=== PATIENT | female | born 1930 | race Caucasian/White ===

== ENCOUNTER 2016-02-07 06:56 | Inpatient (IN) | payer MEDICARE, MEDICAID ==
[~2016-02-07] VITALS: Ht 152.4 cm; Wt 79.5 kg
[2016-02-07] VITALS (8 sets, daily range): BP systolic 123–154; BP diastolic 55–82; PULSE 64–75; RESP 16–22; TEMP 97–97.8; O2SAT 95–100
[~2016-02-07 06:56] MED LIST: ALPR0.25 PO; ASPI81TA11 PO; ATOR20TA15 PO; CHOL1TAB16 PO; DULO1CAP3 PO; FLUT1INH INH; FURO1TAB62 PO; GABA400C5 PO; IPRASOL INH; K-TA10TA PO; LACTG PO; LISI-519 PO; MACR100C2 PO; METO25TA3 PO; OXYGEN NAS.CANULA; RISP0.252 PO
--- NOTE | 2016-02-07 07:29 | PD ---
HPI . Left ankle pain Chief Complaint: Injury Time Seen by Provider: 07:13 Travel History International Travel<30 days: No Contact w/Intl Traveler<30days: No Traveled to known affect area: No History of Present Illness HPI Patient presents by EVAC with a left ankle injury. The patient reports she got up to go to the bathroom at 10:00 last night and inadvertently tripped over her oxygen tubing. She injured her ankle and was unable to get up. She lives in an assisted living community but was unable to summons any help until this morning. She reports that she sat upright on the floor all night with her legs extended and her body supported with her arms. She denies any other injury. She states that she is not currently having any difficulty breathing. PFSH Past Medical History Hx Anticoagulant Therapy: Yes (asa 81mg) Arthritis: Yes Asthma: No Autoimmune Disease: No Anxiety: Yes Depression: Yes Heart Rhythm Problems: No Cancer: No Cardiovascular Problems: Yes (htn, NV x 3?) High Cholesterol: Yes Chemotherapy: No Chest Pain: Yes Congestive Heart Failure: No COPD: Yes Cerebrovascular Accident: No Coronary Artery Disease: Yes Diabetes: No Diminished Hearing: Yes (no hearing aids) Endocrine: No Gastrointestinal Disorders: No GERD: No Genitourinary: No Headaches: No Hiatal Hernia: No Heparin Induced Thrombocytopen: No Hypertension: Yes Immune Disorder: No Implanted Vascular Access Dvce: No Kidney Stones: No Musculoskeletal: Yes Neurologic: No Psychiatric: No Reproductive: No Respiratory: Yes (copd) Integumentary: Yes (left flank and under left breast hx of shingles) Migraines: No Myocardial Infarction: Yes (NV's) Pneumonia: Yes Radiation Therapy: No Renal Failure: No Seizures: No Shingles: Yes Sickle Cell Disease: No Sleep Apnea: No Thyroid Disease: No Ulcer: No Menopausal: Yes Past Surgical History Abdominal Surgery: No AICD: No Arteriovenous Shunt: No Cardiac Surgery: No Ear Surgery: No Endocrine Surgery: No Eye Surgery: Yes (CATARACT both eyes) Genitourinary Surgery: No Gynecologic Surgery: No Insulin Pump: No Joint Replacement: No Neurologic Surgery: No Oral Surgery: No Pacemaker: No Thoracic Surgery: No Tonsillectomy: Yes Other Surgery: No Social History Alcohol Use: No Tobacco Use: No (QUIT 2 yrs ago smoked 1 ppd for approx 65 yrs) Substance Use: No Allergies-Medications (Allergen,Severity, Reaction): Coded Allergies: No Known Allergies (Unverified , 02/07/16) Reported Meds & Prescriptions Reported Meds & Active Scripts Active Macrobid (Nitrofurantoin Monoh/Nitrofur Macro) 100 Mg Cap 100 Mg PO BIDPC 6 Days Reported Symbicort Inh (Budesonide/Formoterol Fumarate) 160-4.5 Mcg/Act Aero 2 Puff INH Q12HR Potassium Chloride Liq (Potassium Chloride) 20 Meq/15 Ml Soln 20 Meq PO DAILY Lactulose Liq (Lactulose) 10 Gm/15 Ml Soln 30 Ml PO Q6H PRN Duoneb (Ipratropium-Albuterol Neb) 0.5-2.5 Mg/3 Ml Neb 1 Nebule INH QID NEB Vitamin D3 (Cholecalciferol) 50,000 Unit Tab 50,000 Units PO Q7D Atorvastatin (Atorvastatin Calcium) 20 Mg Tab 20 Mg PO HS Risperidone 0.25 Mg Tab 0.25 Mg PO HS [oxygen @ 2 LPM by nc] 2 Liter GANESH.CANULA DAILY Gabapentin 400 Mg Cap 400 Cap PO TID Metoprolol Tartrate 25 Mg Tab 12.5 Mg PO BID Lasix (Furosemide) 20 Mg Tab 20 Mg PO DAILY Duloxetine DR (Duloxetine HCl) 60 Mg Capdr 60 Mg PO DAILY Aspirin EC (Aspirin) 81 Mg Tabdr 81 Mg PO DAILY Alprazolam 0.25 Mg Tab 0.25 Mg PO Q6H PRN Review of Systems Except as stated in HPI: all other systems reviewed are Neg General / Constitutional: No: Fever, Chills Cardiovascular: No: Chest Pain or Discomfort Respiratory: No: Shortness of Breath Musculoskeletal: Positive: Arthralgias (left ankle) Skin: Positive Change in Pigmentation (bruising of the left ankle associated with the injury), Positive Other (no associated break in the skin) Physical Exam Narrative GENERAL: She dry elderly woman who is able to give her own history and he does not appear to be in any acute distress. SKIN: Warm and dry. Bruising and swelling of left ankle HEAD: Atraumatic. Normocephalic. EYES: Pupils equal and round. ENT: No nasal bleeding or discharge. Mucous membranes pink and moist. NECK: Trachea midline. Neck supple with full range of motion. CARDIOVASCULAR: Regular rate and rhythm. Heart sounds normal. RESPIRATORY: No accessory muscle use. Breath sounds are nonlabored. I did not make her sit up to listen to her posterior lung zavala. GASTROINTESTINAL: Abdomen soft, non-tender, nondistended. MUSCULOSKELETAL: Bruising and swelling of the left distal tib-fib/ankle area. It is not deformed but has significant bruising and swelling. She is distally neurovascularly intact. NEUROLOGICAL: Awake and alert. No obvious cranial nerve deficits. Motor grossly within normal limits. Normal speech. PSYCHIATRIC: Appropriate mood and affect; insight and judgment normal. Data Data Last Documented VS Vital Signs Date Time Temp Pulse Resp B/P Pulse Ox O2 Delivery O2 Flow Rate FiO2 02/07/16 07:27 99 Nasal Cannula 2 02/07/16 07:09 19 02/07/16 07:02 97.4 64 154/64 Orders Ankle, Complete ([id number]) (02/07/16 07:18) Basic Metabolic Panel (Bmp) (02/07/16 07:23) Ckmb (Isoenzyme) Profile (02/07/16 07:23) Complete Blood Count With Diff (02/07/16 07:23) Oximetry (02/07/16 07:23) Oxygen Administration (02/07/16 07:23) Sodium Chloride 0.9% Flush (Ns Flush) (02/07/16 07:30) Urinalysis - C+S If Indicated (02/07/16 07:23) Splint Or Brace Apply/Monitor (02/07/16 07:57) Acetamin-Hydrocod 325-5 Mg ([place] 5-325 (02/07/16 08:15) Diazepam (Valium) (02/07/16 08:15) Protein Corrected Calcium(Pcc) (02/07/16 07:41) Potassium Chloride (Kcl) (02/07/16 09:30) Sodium Chlor 0.9% 1000 Ml Inj (Ns 1000 M (02/07/16 09:30) Potassium Chloride (Kcl) (02/07/16 10:30) Cath For Specimen (02/07/16 09:32) Urine Culture (02/07/16 09:20) Labs Laboratory Tests Test 02/07/16 02/07/16 07:41 09:20 White Blood Count 14.4 TH/MM3 Red Blood Count 3.95 MIL/MM3 Hemoglobin 11.2 GM/DL Hematocrit 35.5 % Mean Corpuscular Volume 89.7 FL Mean Corpuscular Hemoglobin 28.4 PG Mean Corpuscular Hemoglobin 31.7 % Concent Red Cell Distribution Width 14.2 % Platelet Count 205 TH/MM3 Mean Platelet Volume 9.8 FL Neutrophils (%) (Auto) 80.5 % Lymphocytes (%) (Auto) 11.2 % Monocytes (%) (Auto) 7.1 % Eosinophils (%) (Auto) 0.9 % Basophils (%) (Auto) 0.3 % Neutrophils # (Auto) 11.6 TH/MM3 Lymphocytes # (Auto) 1.6 TH/MM3 Monocytes # (Auto) 1.0 TH/MM3 Eosinophils # (Auto) 0.1 TH/MM3 Basophils # (Auto) 0.0 TH/MM3 CBC Comment DIFF FINAL Differential Comment Sodium Level 150 MEQ/L Potassium Level 2.7 MEQ/L Chloride Level 116 MEQ/L Carbon Dioxide Level 26.9 MEQ/L Anion Gap 7 MEQ/L Blood Urea Nitrogen 20 MG/DL Creatinine 0.54 MG/DL Estimat Glomerular Filtration 107 ML/MIN Rate Random Glucose 87 MG/DL Calcium Level 6.0 MG/DL Protein Corrected Calcium 7.4 MG/DL Total Creatine Kinase 71 U/L Total Protein 4.1 GM/DL Urine Color YELLOW Urine Turbidity CLOUDY Urine pH 5.0 Urine Specific [place] 1.016 Urine Protein TRACE mg/dL Urine Glucose (UA) NEG mg/dL Urine Ketones NEG mg/dL Urine Occult Blood NEG Urine Nitrite NEG Urine Bilirubin NEG Urine Urobilinogen LESS THAN 2.0 MG/DL Urine Leukocyte Esterase LARGE Urine RBC 1 /hpf Urine WBC 73 /hpf Urine WBC Clumps MANY Urine Squamous Epithelial 1 /hpf Cells Urine Bacteria MANY /hpf Urine Hyaline Casts 6 /lpf Urine Mucus FEW /lpf Microscopic Urinalysis Comment CATH-CULTURE IND [facility] Medical Decision Making Medical Screen Exam Complete: Yes Emergency Medical Condition: Yes Differential Diagnosis Differential diagnosis of extremity trauma includes but is not limited to fracture, sprain or strain, dislocation, contusion Narrative Course This is a spry 85-year-old who lives in an assisted living community. She fell and injured her left ankle and was unable to get up. In addition to evaluating her ankle, I will evaluate her for possible rhabdomyolysis. Left ankle x-ray to my interpretation shows a nondisplaced trimalleolar fracture. Case discussed with Dr. Figueroa who feels that the patient may possibly be treatable as an outpatient. We will see how her labs look. In the meantime, I have ordered a splint. 8:15 AM Patient is now getting some cramps in her left leg. I have ordered a [place] and Valium for her. 9:27 AM CBC has an H&H of 11.2 and 35.5. White blood count is 14.4. Chemistries are remarkable for a potassium of 2.7 and a calcium of 6.0. She does have a normal CK. 9:56 AM UA is positive for UTI. This patient needs to just stay for hydration, correction of her potassium, treatment for UTI. Diagnosis Primary Impression: Nondisplaced trimalleolar fracture of left lower leg, initial encounter for closed fracture Additional Impressions: UTI (urinary tract infection) Qualified Code: N30.00 - Acute cystitis without hematuria Hypokalemia Hypernatremia Admitting Information Admitting Physician Requests: Admit Condition: Stable Analy Garsia MD Feb 07, 2016 07:29
[2016-02-07] MEDS ORDERED: SODIUM CHLORIDE 0.9% FLUSH 5 ML FLUSH IVF PRN (07:30)
--- NOTE | 2016-02-07 07:50 | RADRPT ---
EXAM DATE/TIME: 02/07/2016 07:40 [facility] COMPARISON: No previous studies available for comparison. INDICATIONS : Left Ankle Pain, Swelling, and Bruising after fall. MEDICAL HISTORY : Cardiovascular disease. Hypertension. Chronic obstructive pulmonary disease. SURGICAL HISTORY : None. ENCOUNTER: Initial ACUITY: 1 day PAIN SCORE: 10/10 LOCATION: Left Ankle. FINDINGS: There is diffuse decreased bone density. Oblique mildly displaced fracture of the distal fibula ident ified as well as a comminuted and mildly displaced fracture through the medial malleolus. There is sl ight widening of the ankle mortise. Soft tissue swelling is seen. CONCLUSION: Distal fibula and tibial fractures are noted. Jasbir Holliday MD on February 07, 2016 at 7:48 Board Certified Radiologist. This report was verified electronically.
[2016-02-07] MEDS ORDERED: SYMB160A INH (07:54)
[2016-02-07] MEDS ORDERED: LACT10SO PO (07:54)
[2016-02-07] MEDS ORDERED: POTA10SO12 PO (07:54)
[2016-02-07 08:00] LABS: AUTOMATED NEUTROPHIL # 11.6 TH/MM3 (1.8-7.7); BASOPHIL % 0.3 % (0.0-2.0); EOSINOPHIL # 0.1 TH/MM3 (0-0.4); EOSINOPHIL % 0.9 % (0.0-4.0); HEMATOCRIT 35.5 % (35.0-46.0); HEMO FLAGS DIFF FINAL; LYMPH % 11.2 % (9.0-44.0); LYMPHOCYTE # 1.6 TH/MM3 (1.0-4.8); MEAN CELL VOLUME 89.7 FL (80.0-100.0); MEAN CORPUSCULAR HEMOGLOBIN 28.4 PG (27.0-34.0); MEAN CORPUSCULAR HGB CONC 31.7 % (32.0-36.0); MONO % 7.1 % (0.0-8.0); NEUT % 80.5 % (16.0-70.0); PLATELET COUNT 205 TH/MM3 (150-450); RED BLOOD COUNT 3.95 MIL/MM3 (4.00-5.30); RED CELL DISTRIBUTION WIDTH 14.2 % (11.6-17.2); WHITE BLOOD COUNT 14.4 TH/MM3 (4.0-11.0)
[2016-02-07] MEDS ORDERED: DIAZEPAM 5 MG TAB PO ONE (08:15)
[2016-02-07] MEDS ORDERED: ACETAMINOPHEN/HYDROcodone 325 MG/5 MG TAB PO ONE (08:15)
[2016-02-07 08:46] LABS: BICARBONATE 26.9 MEQ/L (21.0-32.0)
[2016-02-07 09:08] LABS: CALCIUM-PROTEIN CORRECTED 7.4 MG/DL (8.5-10.1); POTASSIUM 2.7 MEQ/L (3.5-5.1)
[2016-02-07] MEDS ORDERED: SODIUM CHLOR 0.9% 1000 ML INJ 1,000 ML IV ONE (09:30)
[2016-02-07] MEDS ORDERED: POTASSIUM CHLORIDE 20 MEQ CONTROLLED RELEASE TAB PO ONE ×2 (09:30→10:30)
[2016-02-07 09:47] LABS: BACTERIA, URINE MANY /hpf; BLOOD, URINE NEG (NEG); COMMENT (UR) CATH-CULTURE IND; CULTURE IF INDICATED CATH CULTURE IND; GLUCOSE,URINE NEG (NEG); HYALINE CAST, URINE 6 /lpf (RARE); KETONE, URINE NEG (NEG); MUCUS URINE FEW /lpf (OCC); NITRITE,URINE NEG (NEG); SQUAMOUS EPITHELIAL CELL URINE 1 /hpf (0-5); URINE COLOR YELLOW (YELLW/STRAW)
[2016-02-07] MEDS ORDERED: cefTRIAXone INJ 1,000 MG in SODIUM CHLORIDE 0.9% INJ 100 ML IV ONE (10:00)
[2016-02-07] MEDS ORDERED: NON-FORMULARY DRUG (Cholecalciferol (Vitamin D3) 50,000 UNITS) PO SCH (11:00)
[2016-02-07] MEDS ORDERED: ALPRAZolam 0.25 MG TAB PO PRN (11:00)
[2016-02-07] MEDS ORDERED: PILL SPLITTER OTHER PRN (11:15)
[2016-02-07] MEDS ORDERED: D5W + KCL 20 MEQ INJ 1,000 ML IV SCH (11:45)
--- NOTE | 2016-02-07 11:55 | HHI.HP ---
[facility] Service Family Medicine Primary Care Physician Sheldon Ray, PhD, MD Admission Diagnosis trimalleolar fracture Diagnoses: International Travel<30 Days: No Contact w/Intl Traveler<30days: No Known Affected Area: No History of Present Illness 85-year-old female with history of CT not requiring stent, shingles with postherpetic neuralgia, COPD, hypertension presenting after a fall. At 10 PM last night, she was getting up to go to the bathroom and tripped over her oxygen tank wire. After falling down, she did hurt her left ankle and couldn't get up. She tried to use her emergency button, but it was nonfunctional. She sat upright next to her bed all night until the morning time when she was checked on found down. She thinks she may have hit her head on the closet door, but did not lose consciousness. She does not recall any lightheadedness or confusion prior to or after the episode. She felt pain in her left ankle, but she did not notice any weakness of one limb. She did not have any difficulty speaking or seeing. She is not having any numbness or tingling of the extremities. She denies chest pains or shortness of breath before or during the episode. She's not had any new headaches or visual disturbances. No recent changes to any of her medications. (Abdiel Ayala MD R1) Review of Systems Constitutional: DENIES: Fever Endocrine: COMPLAINS OF: Polyuria (Due to taking Lasix) Eyes: DENIES: Blurred vision, Vision loss Ears, nose, mouth, throat: DENIES: Hearing loss Respiratory: DENIES: Cough, Wheezing, Sputum production, Shortness of breath Cardiovascular: DENIES: Chest pain, Palpitations, Syncope Gastrointestinal: DENIES: Abdominal pain, Black stools, Bloody stools, Constipation Genitourinary: COMPLAINS OF: Urinary frequency (Lasix induced), DENIES: Dysuria Musculoskeletal: COMPLAINS OF: Joint pain (Arthritis), DENIES: Stiffness, Joint Swelling Integumentary: DENIES: Rash Hematologic/lymphatic: COMPLAINS OF: Bruising (On her wrists from propping herself up overnight) Neurologic: DENIES: Abnormal gait, Headache, Localized weakness, Paresthesias, Speech Problems, Poor Balance Psychiatric: COMPLAINS OF: Anxiety (Takes Xanax PRN), DENIES: Confusion, Depression (Abdiel Ayala MD R1) Past Family Social History Past Medical History CT not requiring stents Shingles with postherpetic neuralgia Hypertension COPD On Lasix to "remove fluid from her heart", never been told she has heart failure Past Surgical History No prior surgeries Reported Medications Reported Meds & Active Scripts Active Macrobid (Nitrofurantoin Monoh/Nitrofur Macro) 100 Mg Cap 100 Mg PO BIDPC 6 Days Reported Symbicort Inh (Budesonide/Formoterol Fumarate) 160-4.5 Mcg/Act Aero 2 Puff INH Q12HR Potassium Chloride Liq (Potassium Chloride) 20 Meq/15 Ml Soln 20 Meq PO DAILY Lactulose Liq (Lactulose) 10 Gm/15 Ml Soln 30 Ml PO Q6H PRN Duoneb (Ipratropium-Albuterol Neb) 0.5-2.5 Mg/3 Ml Neb 1 Nebule INH QID NEB Vitamin D3 (Cholecalciferol) 50,000 Unit Tab 50,000 Units PO Q7D Atorvastatin (Atorvastatin Calcium) 20 Mg Tab 20 Mg PO HS Risperidone 0.25 Mg Tab 0.25 Mg PO HS [oxygen @ 2 LPM by nc] 2 Liter GANESH.CANULA DAILY Gabapentin 400 Mg Cap 400 Cap PO TID Metoprolol Tartrate 25 Mg Tab 12.5 Mg PO BID Lasix (Furosemide) 20 Mg Tab 20 Mg PO DAILY Duloxetine DR (Duloxetine HCl) 60 Mg Capdr 60 Mg PO DAILY Aspirin EC (Aspirin) 81 Mg Tabdr 81 Mg PO DAILY Alprazolam 0.25 Mg Tab 0.25 Mg PO Q6H PRN (Abdiel Ayala MD R1) Allergies: Coded Allergies: No Known Allergies (Unverified , 02/07/16) Active Ordered Medications Current Medications Medications (Trade) Dose Ordered Sig/Tony Route Start Time Stop Time Status Last Admin (NS Flush) 2 ml UNSCH PRN IVF 02/07/16 07:30 (Xanax) 0.25 mg Q6H PRN PO 02/07/16 11:00 (Ecotrin Ec) 81 mg DAILY PO 02/08/16 09:00 (Lipitor) 20 mg HS PO 02/07/16 21:00 (Cymbalta Dr) 60 mg DAILY PO 02/08/16 09:00 (Neurontin) 400 mg TID PO 02/07/16 13:00 (Lopressor) 12.5 mg BID PO 02/07/16 21:00 (risperDAL) 0.25 mg HS PO 02/07/16 21:00 (Pill Splitter) 1 ea UNSCH PRN OTHER 02/07/16 11:15 (Vitamin D3) 5,000 units DAILY PO 02/07/16 11:30 UNV Family History No major medical problems in the family Social History Tobacco: One half to one pack per day smoker for approximately 50 years, quit 7 years ago Alcohol: Does not drink Drug use: Does not use other drugs Living: Lives in assisted living facility, functionally independent with ADLs, has a roommate and share bathroom (Abdiel Ayala MD R1) Physical Exam Vital Signs Vital Signs Date Time Temp Pulse Resp B/P Pulse Ox O2 Delivery O2 Flow Rate FiO2 02/07/16 10:11 69 22 123/55 100 Nasal Cannula 2 02/07/16 07:27 99 Nasal Cannula 2 02/07/16 07:09 19 99 Nasal Cannula 2 02/07/16 07:02 97.4 64 19 154/64 99 Physical Exam GENERAL: Well-developed well-nourished elderly white female sitting up in bed in no acute distress SKIN: Ecchymosis of right medial wrist, no sacral decubitus ulcer noted on back exam. Significant tenting noted of skin throughout. HEAD: NC/AT EYES: PERRL. EOMI. No conjunctival injection or drainage. ENT: MMM, OP without erythema, tonsillar swelling, or exudate. NECK: Supple, no lymphadenopathy. No JVD. CARDIOVASCULAR: NRRR. Normal S1/S2. No MRG RESPIRATORY: Mild crackles in the bilateral lung bases, slightly worse on the left side. GASTROINTESTINAL: Abdomen soft, non-distended, non-tender. No hepato- splenomegaly or palpable masses. MUSCULOSKELETAL: Extremities without clubbing, cyanosis, or edema. NEUROLOGICAL: Awake and alert. Oriented to person place, off by one day per time. Cranial nerves II through XII intact to specific testing. Pressure casting in place of left lower extremity, strength 5 out of 5 with right hip flexion, 4 out of 5 with left hip flexion secondary to difficulty moving with the weight of the cast. Strength 5 out of 5 in bilateral upper external is. No confusion noted. Normal speech. Laboratory Laboratory Tests Test 12/31/16 12/31/16 07:41 09:20 White Blood Count 14.4 Red Blood Count 3.95 Hemoglobin 11.2 Hematocrit 35.5 Mean Corpuscular Volume 89.7 Mean Corpuscular Hemoglobin 28.4 Mean Corpuscular Hemoglobin 31.7 Concent Red Cell Distribution Width 14.2 Platelet Count 205 Mean Platelet Volume 9.8 Neutrophils (%) (Auto) 80.5 Lymphocytes (%) (Auto) 11.2 Monocytes (%) (Auto) 7.1 Eosinophils (%) (Auto) 0.9 Basophils (%) (Auto) 0.3 Neutrophils # (Auto) 11.6 Lymphocytes # (Auto) 1.6 Monocytes # (Auto) 1.0 Eosinophils # (Auto) 0.1 Basophils # (Auto) 0.0 CBC Comment DIFF FINAL Differential Comment Sodium Level 150 Potassium Level 2.7 Chloride Level 116 Carbon Dioxide Level 26.9 Anion Gap 7 Blood Urea Nitrogen 20 Creatinine 0.54 Estimat Glomerular Filtration 107 Rate Random Glucose 87 Calcium Level 6.0 Protein Corrected Calcium 7.4 Total Creatine Kinase 71 Total Protein 4.1 Urine Color YELLOW Urine Turbidity CLOUDY Urine pH 5.0 Urine Specific [place] 1.016 Urine Protein TRACE Urine Glucose (UA) NEG Urine Ketones NEG Urine Occult Blood NEG Urine Nitrite NEG Urine Bilirubin NEG Urine Urobilinogen LESS THAN 2.0 Urine Leukocyte Esterase LARGE Urine RBC 1 Urine WBC 73 Urine WBC Clumps MANY Urine Squamous Epithelial 1 Cells Urine Bacteria MANY Urine Hyaline Casts 6 Urine Mucus FEW Microscopic Urinalysis Comment CATH-CULTURE IND Date/Time Procedure Status Source Growth 02/07/16 09:20 Urine Culture Received Urine Catheterized Urine Pending (Abdiel Ayala MD R1) Result Diagram: 02/07/16 0741 02/07/16 0741 Imaging Last Impressions Ankle X-Ray 02/07/16 0718 Signed Impressions: Service Date/Time: Sunday, February 07, 2016 07:40 - CONCLUSION: Distal fibula and tibial fractures are noted. Jasbir Holliday MD (Abdiel Ayala MD R1) Assessment and Plan Assessment and Plan 85 year old female with h/o COPD, HTN, CT not requiring stents presenting with: Code Status NO CODE DNR Discussed Condition With Dr. Ishan Zuluaga (Abdiel Ayala MD R1) Attending Attestation The patient has been seen and examined. The chart and all resident notes have been reviewed. I agree that inpatient care is appropriate and that a two midnight stay is expected for the reasons documented in the resident history and physical. I have discussed this with the resident and certify the resident s order for inpatient admission. (Analy Olmstead MD) Problem List: (1) Nondisplaced trimalleolar fracture of left lower leg, initialencounter for closed fracture Status: Acute Plan: Secondary to mechanical fall. Noted on Left foot XR. No prodromal symptoms, neurologic & cardiopulmonary exam reassuring. No need to work up additional causes of fall at this time. * CT head to r/o intracranial bleed * Spoke to Dr. Figueroa orthopedic, appreciate recommendations * Outpatient management of fracture recommended, will have follow up arranged on D/C * PT eval & treat * CM consult for discharge planning based on PT recs * Tylenol 650 mg PO Q6H scheduled * Ibuprofen, Oxycodone PRN additional pain (2) Hypernatremia Status: Acute Plan: Na 150 on admission, appearing dehydrated * S/p 1 L NS bolus in ED * D5 + 20 mEq KCl at 70 cc/hr * Repeat BMP in 6 hours (3) Hypokalemia Status: Acute Plan: Potassium 2.7 on admission, asymptomatic * S/P 80 mEq KCl PO in ED * D5 + 20 mEq KCl at 70 cc/hr * hold home lasix * EKG to assess for changes * Check magnesium level * Telemetry * Repeat BMP in 6 hours (4) UTI (urinary tract infection) Status: Acute Plan: Asymptomatic, UA showing leuk esterase, many WBC * S/p 1 g Rocephin * Macrobid 100 mg PO BID x5 * F/u Urine Cx (5) Chronic obstructive pulmonary disease Status: Chronic Plan: Stable, on home oxygen * DuoNeb nebs every 4 hours as needed for shortness of breath (6) Postherpetic neuralgia Status: Chronic Plan: Stable * Continue home gabapentin (7) HTN (hypertension) Status: Chronic Plan: BP wnl and stable * Continue home metoprolol (8) Congestive heart failure Status: Acute Plan: No CHF per patient and daughter, but on home lasix for "fluid around heart" and carries CHF diagnosis in EMR Mild crackles on exam, asymptomatic currently * Go light on IVF, 70 cc/hr only * CXR with 20 mg Lasix if SOB occurs (9) FEN/PPX Status: Acute Plan: Fluids: As above Elecs: As above Nutrition: Diet regular basic DVT: SCDs bilateral knee high, will d/c and start pharmacologic PPX once cleared of ICH (Abdiel Ayala MD R1) Problem Qualifiers (1) UTI (urinary tract infection): Qualified Code: N30.00 - Acute cystitis without hematuria (2) Chronic obstructive pulmonary disease: Qualified Code: J44.9 - Chronic obstructive pulmonary disease, unspecified COPD type (3) HTN (hypertension): Qualified Code: I10 - Essential hypertension (4) Congestive heart failure: Qualified Code: I50.9 - Chronic congestive heart failure, unspecified congestive heart failure type Abdiel Ayala MD R1 Feb 07, 2016 11:55 Analy Olmstead MD Feb 08, 2016 14:38
--- NOTE | 2016-02-07 12:30 | RADRPT ---
EXAM DATE/TIME: 02/07/2016 12:20 [facility] COMPARISON: CT BRAIN W/O CONTRAST, December 07, 2015, 11:08. INDICATIONS : Trauma; fall; cephalgia. RADIATION DOSE: 56.35 CTDIvol (mGy) MEDICAL HISTORY : Hypertension. Chronic obstructive pulmonary disease. Cardiovascular disease SURGICAL HISTORY : Tonsillectomy. ENCOUNTER: Initial ACUITY: 1 day PAIN SCALE: 5/10 LOCATION: cranial TECHNIQUE: Multiple contiguous axial images were obtained of the head. Using automated exposure control and adj ustment of the mA and/or kV according to patient size, radiation dose was kept as low as reasonably a chievable to obtain optimal diagnostic quality images. FINDINGS: There is atrophy greatest in the bilateral parietal regions. No fractures are seen. No hemorrhage, ac maryam infarct, or mass. CONCLUSION: No significant change has occurred. Jasbir Holliday MD on February 07, 2016 at 12:28 Board Certified Radiologist. This report was verified electronically.
[2016-02-07] MEDS: CHOLECALCIFEROL (VIT D3) 5000 UNIT CAP PO SCH (13:00)
[2016-02-07] MEDS: GABAPENTIN 400 MG CAP PO SCH ×2 (13:25→16:29)
[2016-02-07] MEDS ORDERED: DOCUSATE SODIUM 50 MG/SENNA 8.6 MG TAB PO PRN (13:30)
[2016-02-07] MEDS ORDERED: NALOXONE HCL 0.4 MG/ML AMP IV PRN (13:30)
[2016-02-07 16:16] LABS: BICARBONATE 32.6 MEQ/L (21.0-32.0)
[2016-02-07 16:21] LABS: POTASSIUM 5.4 MEQ/L (3.5-5.1)
[2016-02-07] MEDS: ACETAMINOPHEN 325 MG TAB PO SCH ×2 (16:28→22:00)
[2016-02-07] MEDS: SODIUM CHLOR 0.9% 1000 ML INJ 1,000 ML IV SCH (17:59)
[2016-02-07] MEDS: risperiDONE 0.25 MG TAB PO SCH (20:49)
[2016-02-07] MEDS: METOPROLOL TARTRATE 25 MG TAB PO SCH (20:49)
[2016-02-07] MEDS: ATORVASTATIN 20 MG TAB PO SCH (20:49)
[2016-02-07 22:36] LABS: BICARBONATE 36.3 MEQ/L (21.0-32.0); POTASSIUM 4.7 MEQ/L (3.5-5.1)
[2016-02-08] VITALS (7 sets, daily range): BP systolic 139–191; BP diastolic 63–100; PULSE 56–77; RESP 16–20; TEMP 97.2–99.2; O2SAT 92–98
[2016-02-08] MEDS: IBUPROFEN 400 MG TAB PO PRN (02:36)
[2016-02-08] MEDS: ACETAMINOPHEN 325 MG TAB PO SCH ×4 (05:11→20:52)
[2016-02-08 05:33] LABS: AUTOMATED NEUTROPHIL # 8.9 TH/MM3 (1.8-7.7); BASOPHIL # 0.1 TH/MM3 (0-0.2); BASOPHIL % 0.4 % (0.0-2.0); EOSINOPHIL # 0.3 TH/MM3 (0-0.4); EOSINOPHIL % 2.4 % (0.0-4.0); HEMATOCRIT 33.5 % (35.0-46.0); HEMO FLAGS DIFF FINAL; LYMPH % 17.4 % (9.0-44.0); LYMPHOCYTE # 2.2 TH/MM3 (1.0-4.8); MEAN CELL VOLUME 89.8 FL (80.0-100.0); MEAN CORPUSCULAR HEMOGLOBIN 28.4 PG (27.0-34.0); MEAN CORPUSCULAR HGB CONC 31.6 % (32.0-36.0); MONO % 8.6 % (0.0-8.0); NEUT % 71.2 % (16.0-70.0); PLATELET COUNT 187 TH/MM3 (150-450); RED BLOOD COUNT 3.73 MIL/MM3 (4.00-5.30); RED CELL DISTRIBUTION WIDTH 14.7 % (11.6-17.2); WHITE BLOOD COUNT 12.5 TH/MM3 (4.0-11.0)
[2016-02-08 05:49] LABS: BICARBONATE 30.5 MEQ/L (21.0-32.0); MAGNESIUM 1.9 MG/DL (1.5-2.5); POTASSIUM 4.9 MEQ/L (3.5-5.1)
--- NOTE | 2016-02-08 07:46 | HHI.FPPN ---
Subjective Subjective Patient seen and examined with the resident team this am. Case reiviewed and discussed Please refer to resident H&P for further details regarding HPI, ROS, PMH, SurgHx , Fh and SocHx In summary, patient is an 85yoF with a history of recurrent UTI, COPD on chronic home oxygen presenting after a fall. Imaging on arrival noted a tib/fib fracture. Patient was also found to have electrolyte disturbances on admission, including hypokalemia and hypernatremia. She is seen in her hospital bed this am with some improvement after correction of her electrolyte disturbances. [facility] Objective Objective Last Impressions Ankle X-Ray 02/07/16 0718 Signed Impressions: Service Date/Time: Sunday, February 07, 2016 07:40 - CONCLUSION: Distal fibula and tibial fractures are noted. Jasbir Holliday MD Head CT 02/07/16 0000 Signed Impressions: Service Date/Time: Sunday, February 07, 2016 12:20 - CONCLUSION: No significant change has occurred. Jasbir Holliday MD Laboratory Tests - Abnormals Test 02/07/16 02/07/16 02/07/16 02/08/16 09:20 13:38 21:57 05:05 Urine Turbidity CLOUDY Urine Leukocyte Esterase LARGE Urine WBC 73 /hpf Urine WBC Clumps MANY Urine Bacteria MANY /hpf Urine Mucus FEW /lpf Potassium Level 5.4 MEQ/L Carbon Dioxide Level 32.6 MEQ/L 36.3 MEQ/L Anion Gap 4 MEQ/L 4 MEQ/L Blood Urea Nitrogen 27 MG/DL 27 MG/DL 22 MG/DL Estimat Glomerular Filtration 60 ML/MIN 53 ML/MIN 65 ML/MIN Rate Random Glucose 117 MG/DL 117 MG/DL 109 MG/DL White Blood Count 12.5 TH/MM3 Red Blood Count 3.73 MIL/MM3 Hemoglobin 10.6 GM/DL Hematocrit 33.5 % Mean Corpuscular Hemoglobin 31.6 % Concent Neutrophils (%) (Auto) 71.2 % Monocytes (%) (Auto) 8.6 % Neutrophils # (Auto) 8.9 TH/MM3 Monocytes # (Auto) 1.1 TH/MM3 Phosphorus Level 2.2 MG/DL Vital Signs 02/07/16 02/07/16 02/07/16 02/07/16 10:11 15:40 16:00 19:02 Temp 97.8 Pulse 69 69 75 Resp 22 18 B/P 123/55 137/82 Pulse Ox 100 95 95 O2 Delivery Nasal Cannula Nasal Cannula O2 Flow Rate 2 2.00 02/07/16 02/07/16 02/07/16 02/08/16 20:06 20:18 20:29 00:53 Temp 97.0 97.0 97.3 Pulse 70 70 66 77 Resp 16 16 16 B/P 129/56 129/56 153/70 Pulse Ox 95 95 97 02/08/16 02/08/16 02/08/16 03:40 04:52 07:18 Temp 97.6 97.2 Pulse 63 56 Resp 21 18 17 B/P 150/65 149/65 Pulse Ox 96 98 INTAKE & OUTPUT 02/08/16 07:00 Intake Total 1361 ml Balance 1361 ml Physical exam GENERAL: wdwn elderly female resting in bed, NAD SKIN: Warm and dry. No rashes HEAD: Normocephalic. AT EYES: No scleral icterus. No injection or drainage. ENT: OP clear. NC in place. MM slightly dry NECK: Supple, trachea midline. No JVD or lymphadenopathy. CARDIOVASCULAR: Regular rate and rhythm without audible murmurs, gallops, or rubs. RESPIRATORY: Breath sounds equal and clear to auscultation bilaterally. No accessory muscle use. GASTROINTESTINAL: Abdomen soft, non-tender, nondistended. No rebound. MUSCULOSKELETAL: No cyanosis, or edema. No calf tenderness. LLE in immobilizer. BACK: Nontender without obvious deformity. No CVA tenderness. NEURO: Awake and alert. Normal speech. CN grossly intact. Assessment Assessment 85yoF admitted with: Tib/fib fracture UTI, failed outpatient treatment attempts Uncontrolled HTN Severe hypokalemia Hypernatremia Dehydration Hypocalcemia Leukocytosis CAD s/p PA COPD on chronic supplemental oxygen PLAN PLAN IVF replete electrolytes Empiric antibiotic therapy Follow urine cultures, adjust antibiotics as needed PT consult Ortho consult Serial BMP Supplemental oxygen Titrate anti-hypertensive therapy Pain control Cm consult for discharge planning DVT proph Patient seen and examined. Case reviewed and discussed Agree with plan of care as discussed with me and documented in the resident note. Analy Olmstead MD Feb 08, 2016 07:46
[2016-02-08] MEDS: SODIUM CHLOR 0.9% 1000 ML INJ 1,000 ML IV SCH ×2 (07:48→22:06)
[2016-02-08] MEDS: ENOXAPARIN SODIUM 40 MG/0.4 ML SYRINGE SQ SCH (08:00)
[2016-02-08] MEDS: CHOLECALCIFEROL (VIT D3) 5000 UNIT CAP PO SCH (09:00)
[2016-02-08] MEDS: DULoxetine HCl DR 60 MG CAP PO SCH (09:00)
[2016-02-08] MEDS ORDERED: NITROFURANTOIN MONOHYD MACROCR 100 MG CAP PO SCH (09:00)
[2016-02-08] MEDS: ASPIRIN EC 81 MG TABEC PO SCH (09:00)
[2016-02-08] MEDS: METOPROLOL TARTRATE 25 MG TAB PO SCH ×2 (09:00→20:52)
[2016-02-08] MEDS: GABAPENTIN 400 MG CAP PO SCH ×3 (09:00→18:06)
[2016-02-08] MEDS: cefTRIAXone INJ 1,000 MG in SODIUM CHLORIDE 0.9% INJ 100 ML IV SCH (09:12)
--- NOTE | 2016-02-08 13:31 | EKG ---
Date Performed: 02/08/2016 Time Performed: 02:54:04 PTAGE: 85 years EKG: Sinus rhythm WITH SINUS ARRHYTHMIA RIGHT BUNDLE BRANCH BLOCK LEFT ANTERIOR FASCICULAR BLOCK Since previous tracin g, no significant change noted ABNORMAL ECG PREVIOUS TRACING : 12/07/2015 21.35 DOCTOR: Charu Arnold Interpretating Date/Time 02/08/2016 13:29:00
[2016-02-08] MEDS: amLODIPine BESYLATE 5 MG TAB PO SCH (15:39)
--- NOTE | 2016-02-08 17:24 | RADRPT ---
EXAM DATE/TIME: 02/08/2016 17:05 [facility] COMPARISON: ANKLE LEFT COMPLETE ([id number]), February 07, 2016, 7:40. INDICATIONS : Left ankle pain, follow up fracture. MEDICAL HISTORY : None. SURGICAL HISTORY : None. ENCOUNTER: Initial ACUITY: 2 days PAIN SCORE: 10/10 LOCATION: Left ankle. FINDINGS: Comminuted fractures of the distal fibula and medial malleolus of the distal tibia again noted. A kaci t has been placed. Lateral view shows mild posterior subluxation across the tibiotalar joint, somethi ng not clearly seen previously. CONCLUSION: Casted. Mild posterior tibiotalar subluxation evident. Comminuted fractures of the distal fibula and distal tibia are in near-anatomic alignment. Oscar Paulino MD on February 08, 2016 at 17:20 Board Certified Radiologist. This report was verified electronically.
[2016-02-08] MEDS: risperiDONE 0.25 MG TAB PO SCH (20:52)
[2016-02-08] MEDS: ATORVASTATIN 20 MG TAB PO SCH (20:52)
[2016-02-09] VITALS: BP 142/50; PULSE 64; RESP 18; TEMP 97.7; O2SAT 95
[2016-02-09 04:00] VITALS: BP 127/51; PULSE 67; RESP 18; TEMP 97.8; O2SAT 98
[2016-02-09] MEDS: ACETAMINOPHEN 325 MG TAB PO SCH ×4 (04:00→22:24)
[2016-02-09 07:37] LABS: AUTOMATED NEUTROPHIL # 7.9 TH/MM3 (1.8-7.7); BASOPHIL # 0.1 TH/MM3 (0-0.2); BASOPHIL % 0.6 % (0.0-2.0); EOSINOPHIL # 0.2 TH/MM3 (0-0.4); EOSINOPHIL % 1.7 % (0.0-4.0); HEMATOCRIT 34.5 % (35.0-46.0); HEMO FLAGS DIFF FINAL; LYMPH % 15.4 % (9.0-44.0); LYMPHOCYTE # 1.7 TH/MM3 (1.0-4.8); MEAN CELL VOLUME 91.4 FL (80.0-100.0); MEAN CORPUSCULAR HGB CONC 30.7 % (32.0-36.0); MONO % 11.5 % (0.0-8.0); NEUT % 70.8 % (16.0-70.0); PLATELET COUNT 183 TH/MM3 (150-450); RED BLOOD COUNT 3.78 MIL/MM3 (4.00-5.30); RED CELL DISTRIBUTION WIDTH 14.2 % (11.6-17.2); WHITE BLOOD COUNT 11.1 TH/MM3 (4.0-11.0)
[2016-02-09 08:00] VITALS: BP 151/57; PULSE 73; RESP 28; TEMP 97.4; O2SAT 99
[2016-02-09] MEDS: ENOXAPARIN SODIUM 40 MG/0.4 ML SYRINGE SQ SCH (08:00)
[2016-02-09 08:06] LABS: BICARBONATE 34.4 MEQ/L (21.0-32.0); MAGNESIUM 1.9 MG/DL (1.5-2.5); POTASSIUM 4.6 MEQ/L (3.5-5.1)
[2016-02-09] MEDS: amLODIPine BESYLATE 5 MG TAB PO SCH (08:17)
[2016-02-09] MEDS: CHOLECALCIFEROL (VIT D3) 5000 UNIT CAP PO SCH (08:17)
[2016-02-09] MEDS: ASPIRIN EC 81 MG TABEC PO SCH (08:17)
[2016-02-09] MEDS: METOPROLOL TARTRATE 25 MG TAB PO SCH ×2 (08:17→22:23)
[2016-02-09] MEDS: DULoxetine HCl DR 60 MG CAP PO SCH (08:17)
[2016-02-09] MEDS: GABAPENTIN 400 MG CAP PO SCH ×3 (08:17→16:42)
[2016-02-09] MEDS ORDERED: GENTAMICIN SULFATE 80 MG/2 ML VIAL ONE ×2 (09:30)
[2016-02-09] MEDS ORDERED: BUPIVACAINE/EPINEPHRINE 0.25% PF 30 ML VIAL ONE (09:31)
[2016-02-09] MEDS ORDERED: HYDROmorphone HCL PF 2 MG/ML VIAL ONE (09:41)
[2016-02-09] MEDS ORDERED: fentaNYL CITRATE 250 MCG/5 ML AMP ONE ×2 (09:42→09:56)
[2016-02-09] MEDS: cefTRIAXone INJ 1,000 MG in SODIUM CHLORIDE 0.9% INJ 100 ML IV SCH ×2 (10:00→10:32)
[2016-02-09] MEDS ORDERED: HYDR-3288 PO (10:04)
[2016-02-09] MEDS ORDERED: WHEEMIS3 (10:06)
[2016-02-09] MEDS ORDERED: WALKER/ADULT/FO1 MIS (10:06)
[2016-02-09] MEDS ORDERED: SODIUM CHLOR 0.9% 250 ML INJ 250 ML ONE (10:23)
[2016-02-09] MEDS ORDERED: VANCOMYCIN HCL 1000 MG VIAL ONE (10:23)
[2016-02-09] MEDS ORDERED: ACETAMINOPHEN 1000 MG/100 ML VIAL IV ONE (10:41)
--- NOTE | 2016-02-09 11:23 | PD.OP ---
cc: Agustin Tripp MD Operative Report Date of Surgery: Feb 09, 2016 Preoperative Diagnosis: Left ankle bimalleolar fracture Postoperative Diagnosis: Procedure: Open reduction internal fixation left ankle bimalleolar fracture Anesthesia: Gen. Surgeon: Agustin Tripp Universal Grinder Set Up Operator(s): OLESYA Cesar PA-C The surgical procedure was assisted by my physician psychological assistant. My P.A. presence was necessary throughout this case for the manipulation and positioning of the surgical extremity. My P.A. was assisting me throughout the duration of this procedure. The skill set of a physician psychological assistant was medically necessary to complete this procedure. During the surgical case the claim technician was working at the back table and the physician psychological assistant was directly assisting me. Operation and Findings: Patient was seen and evaluated preoperatively and found to have a displaced ankle fracture. Informed consent was obtained after a detailed discussion of risk and benefits of surgery. The operative site was marked. Patient was brought to the OR, placed on the OR table, and given IV sedation and general endotracheal anesthesia. IV antibiotics were given preoperatively. A timeout procedure was performed. The left leg was prepped with alcohol followed by Hibiclens and draped in the usual sterile fashion. Attention was turned towards the distal fibula. A four-inch incision was made over the distal fibula. The subcutaneous tissue was dissected with Bovie. The fracture site was visualized. The fracture site was cleaned with curets. The fracture was now reduced. The fracture keyed into anatomic alignment. K-wires were used to h old provisional fixation. A lag screw was placed to compress fracture. A Synthes one third tubular plate was selected. The plate was provisionally held to bone with K-wires. 3.5 cortical screws were used to compress the plate to bone. Multiple screws were placed above and below the fracture. Next attention was turned towards the medial malleolus. The medial malleolus supposed through a 3 cm incision. Saphenous vein was retracted. Fracture was visualized. Fracture was cleaned with curettes. Fracture was now reduced and keyed into anatomic alignment. K wires were used to hold provisional fixation. 2 guidepins for the 4.0 cannulated screws were placed in a retrograde fashion across the fracture. Fluoroscopy was used to confirm guidepin placement. Cannulated drill was placed over the guidepin. 2 appropriate length screws were now placed. Good compression was applied. Fluoroscopy confirmed well aligned fracture with well-placed hardware. Next, attention was turned to the syndesmosis. The syndesmosis was stressed. There was no widening of the syndesmosis with external rotation of the ankle. Incisions were thoroughly irrigated. The subcutaneous tissue was closed with 3- 0 PDS and the skin was closed with 3-0 nylon. Sterile dressings were applied. A well molded well-padded splint was applied. The patient was transferred to Recovery in stable condition. Needle and sponge counts were correct. Agustin Tripp MD Feb 09, 2016 11:23
[2016-02-09] MEDS ORDERED: ONDANSETRON HCL 4 MG/2 ML VIAL IVP PRN (11:30)
[2016-02-09] MEDS ORDERED: Post-op Orders (for Pharmacy) MISC XX ONE (11:30)
[2016-02-09] MEDS ORDERED: MORPHINE SULFATE 4 MG/ML INJ IV PUSH PRN ×2 (11:30)
[2016-02-09] MEDS ORDERED: ACETAMINOPHEN/HYDROcodone 325 MG/7.5 MG TAB PO PRN (11:30)
[2016-02-09] MEDS ORDERED: *RESP: ALBUTEROL 2.5 MG/3 ML NEB (PRN) PERIprocedural Use ONLY NEB ONE (11:41)
[2016-02-09] MEDS ORDERED: FUROSEMIDE 20 MG/2 ML VIAL IV PUSH ONE (12:30)
--- NOTE | 2016-02-09 12:56 | MB ---
cc: SANDY ESPINO DATE OF CONSULTATION: 02/09/2016. REASON FOR CONSULTATION Left ankle fracture. CONSULTING PHYSICIAN Dr. Olmstead. HISTORY OF PRESENT ILLNESS Solange is a 85-year-old female who has a history of coronary artery disease, COPD, hypertension. She fell on [employer]. She was attempting to go to the bathroom when she tripped over oxygen tank tube. She fell and twisted her left ankle. She was unable to stand or ambulate. She presented to the emergency room where x-rays revealed a displaced left ankle fracture. She denies any dizziness, syncope or loss of consciousness. Pain is worse with movement and is improved with rest. She is currently awake and alert on the orthopedic floor. PAST MEDICAL HISTORY ILLNESSES 1. Coronary artery disease. 2. Shingles. 3. Hypertension. 4. COPD. SURGERIES Coronary artery stenting. MEDICATIONS 1. Macrobid. 2. Symbicort. 3. Potassium. 4. Lactulose. 5. DuoNeb. 6. Vitamin D3. 7. Gabapentin. 8. Metoprolol. 9. Duloxetine. 10. Aspirin. 11. Alprazolam. ALLERGIES NO KNOWN DRUG ALLERGIES. SOCIAL HISTORY The patient quit smoking 7 years ago. She denies alcohol or drug use. She lives in an [facility]. REVIEW OF SYSTEMS The patient denies headache, visual changes, neck pain, chest pain, shortness of breath, abdominal pain, nausea, vomiting or recent weight loss. She complains of left ankle pain. PHYSICAL EXAMINATION GENERAL: The patient is a well-developed, well-nourished 85-year-old female, in no acute distress. She is awake and alert. She is alert and oriented x3. VITAL SIGNS: Temperature 97.8, pulse 67, respirations 18, blood pressure 127/51, O2 sat 98% on 3 liters nasal cannula. HEAD: The patient is normocephalic. Pupils are equal. NECK: Soft, nontender. Trachea is midline. ABDOMEN: Soft, nontender, nondistended. EXTREMITIES: Examination of bilateral upper extremities reveals no obvious pain or deformity with shoulder, elbow or wrist motion. Skin is intact to both hands. Radial pulses are palpable bilaterally. Sensation is intact in all fingers. She has +5 hand welt butter strength bilaterally. Examination of right leg reveals no pain with hip, knee or ankle motion. Skin is intact. Dorsalis pedis pulse is intact. Sensation is grossly intact in right foot. Examination of left leg reveals no pain with hip or knee motion. She is diffusely tender around the ankle. There is mild swelling present. Skin is intact. She has good cap refill in her foot. Dorsalis pedis pulse is palpable. Sensation is grossly intact in the left foot. X-RAYS X-rays of left ankle were reviewed. X-rays reveal a displaced left ankle fracture. IMPRESSION 1. Displaced left ankle bimalleolar fracture. 2. COPD. 3. Hypertension. 4. Osteoporosis. PLAN Treatment options were discussed with the patient, at this point I would recommend open reduction, internal fixation of left ankle with plates and screws. The risks of surgery include bleeding, infection, injuries to arteries, nerves and blood vessels, nonunion, malunion, painful hardware, ankle arthritis, ankle stiffness as well as medical complications including blood clot, stroke, heart attack and . I explained to her that she will need to be strictly non-weightbearing on her left ankle for at least 6 weeks, all questions were answered. A mid-level provider in my office, nurse practitioner or PA, may see this patient on a follow-up basis and continue to implement the objective of this plan including: Starting or adjusting medications, injections of muscle, tendon, bursa or joints, cast application, orthotic or brace application, physical therapy, further radiographic studies including x-ray, MRI, CT, ultrasounds or bone scan, vascular studies, neurologic studies, or other specialist consultations, and proceeding with surgical management as appropriate. MD AREN Alcantar/VINITA /11:26 AM /12:41 PM
[2016-02-09] MEDS: SODIUM CHLOR 0.9% 1000 ML INJ 1,000 ML IV SCH (13:42)
[2016-02-09] MEDS ORDERED: DO NOT ADM ANY ANTICOAGULANT DRUGS XX PRN (14:30)
[2016-02-09] MEDS ORDERED: ePHEDrine/NS 50 MG/5 ML SYR IV ONE (15:13)
[2016-02-09] MEDS ORDERED: ONDANSETRON HCL 4 MG/2 ML VIAL IV PUSH ONE (15:13)
[2016-02-09] MEDS ORDERED: PHENYLEPH/NS 1000 MCG/10 ML SYR IV ONE (15:13)
[2016-02-09] MEDS ORDERED: NEOSTIGMINE 3 MG/3 ML SYR IV ONE (15:13)
[2016-02-09] MEDS ORDERED: NORMOSOL R INJ 1,000 ML IV ONE (15:13)
[2016-02-09] MEDS ORDERED: PROPOFOL 200 MG/20 ML AMP IV ONE (15:13)
[2016-02-09 15:27] VITALS: O2SAT 86; O2SAT 93
[2016-02-09 16:00] VITALS: BP 108/57; PULSE 66; RESP 18; TEMP 95.2; O2SAT 93
--- NOTE | 2016-02-09 16:21 | HHI.FPPN ---
Subjective Remarks No acute events overnight, a couple BPs up to 150s. Seen in PACU today after surgery for left ankle fracture. Resting, still sedated from anesthesia. Objective Vitals Vital Signs Date Time Temp Pulse Resp B/P Pulse Ox O2 Delivery O2 Flow Rate FiO2 02/09/16 15:30 92 Nasal Cannula 3.00 02/09/16 15:27 93 Nasal Cannula 3.00 02/09/16 13:15 98.1 58 18 128/49 94 Nasal Cannula 3 02/09/16 13:00 55 18 127/50 95 Nasal Cannula 4 02/09/16 12:45 60 16 143/57 95 Nasal Cannula 4 02/09/16 12:30 71 16 14/56 95 Nasal Cannula 4 02/09/16 12:15 68 14 158/59 97 Simple Mask 6 02/09/16 12:00 75 15 96/74 92 Simple Mask 6 02/09/16 11:45 70 14 150/73 93 Simple Mask 6 02/09/16 11:33 98.3 92 16 144/45 99 02/09/16 09:25 2.00 02/09/16 08:23 Nasal Cannula 3.00 02/09/16 08:00 97.4 73 28 151/57 99 02/09/16 04:00 97.8 67 18 127/51 98 02/09/16 00:00 97.7 64 18 142/50 95 02/08/16 20:10 Nasal Cannula 3.00 02/08/16 18:40 92 Nasal Cannula 3.00 02/08/16 18:29 99.2 77 19 139/63 92 02/08/16 17:59 Nasal Cannula 2.00 I/O 02/08/16 02/08/16 02/08/16 02/09/16 02/09/16 02/09/16 06:59 14:59 22:59 06:59 14:59 22:59 Intake Total 1021 ml 400 ml 825 ml Output Total 750 ml Balance 1021 ml 400 ml 75 ml Intake Oral 480 ml 240 ml IV Total 541 ml 160 ml 25 ml Other 800 ml Output Urine Total 700 ml Estimated Blood Loss 50 ml # Voids 4 2 # Bowel Movements 11 1 0 Result Diagram: 02/09/16 0606 02/09/16 0606 Imaging Last Impressions Ankle X-Ray 02/08/16 0000 Signed Impressions: Service Date/Time: Monday, February 08, 2016 17:05 - CONCLUSION: Casted. Mild posterior tibiotalar subluxation evident. Comminuted fractures of the distal fibula and distal tibia are in near-anatomic alignment. Oscar Paulino MD Head CT 02/07/16 0000 Signed Impressions: Service Date/Time: Sunday, February 07, 2016 12:20 - CONCLUSION: No significant change has occurred. Jasbir Holliday MD Objective Remarks GEN: WDWN elderly white female lying in bed asleep in NAD RESP: Shallow respirations, mild crackles diffuesly, no wheezes CV: NRRR, normal s1/s2, no MRG Abd: Soft, NDNT MSK: Left ankle with splinting and ENEDELIA wrap up to below knee. No cyanosis or edema noted. NEURO: Drowsy, awakens to voice and touch, falls back asleep immediately. Medications and IVs Current Medications Medications (Trade) Dose Ordered Sig/Tony Route Start Time Stop Time Status Last Admin (NS Flush) 2 ml UNSCH PRN IVF 02/07/16 07:30 (Xanax) 0.25 mg Q6H PRN PO 02/07/16 11:00 02/08/16 15:40 (Ecotrin Ec) 81 mg DAILY PO 02/08/16 09:00 02/08/16 09:00 (Lipitor) 20 mg HS PO 02/07/16 21:00 02/08/16 20:52 (Cymbalta Dr) 60 mg DAILY PO 02/08/16 09:00 02/09/16 08:17 (Neurontin) 400 mg TID PO 02/07/16 13:00 02/09/16 08:17 (Lopressor) 12.5 mg BID PO 02/07/16 21:00 02/09/16 08:17 (risperDAL) 0.25 mg HS PO 02/07/16 21:00 02/08/16 20:52 (Pill Splitter) 1 ea UNSCH PRN OTHER 02/07/16 11:15 (Vitamin D3) 5,000 units DAILY PO 02/07/16 13:00 02/08/16 09:00 (Tylenol) 650 mg Q6H PO 02/07/16 16:00 02/08/16 20:52 (Motrin) 400 mg Q6H PRN PO 02/07/16 13:30 02/08/16 02:36 (Roxicodone) 10 mg Q4H PRN PO 02/07/16 13:30 (Roxicodone) 5 mg Q4H PRN PO 02/07/16 13:30 (Narcan Inj) 0.4 mg UNSCH PRN IV 02/07/16 13:30 Senna/Docusate Sodium 2 tab 2 tab BID PRN PO 02/07/16 13:30 Sodium Chloride 1,000 ml @ 70 mls/hr [id number] IV 02/07/16 17:30 02/09/16 13:42 (Rocephin Inj/NS Inj) 100 ml @ 200 mls/hr Q24H IV 02/08/16 10:00 02/09/16 10:32 (Norvasc) 5 mg DAILY PO 02/08/16 15:00 02/09/16 08:17 ([place] 7.5-325 Mg) 1 tab Q4H PRN PO 02/09/16 11:30 (Zofran Inj) 4 mg Q4H PRN IVP 02/09/16 11:30 (Morphine Inj) 3 mg Q3H PRN IV PUSH 02/09/16 11:30 (Lovenox Inj) 40 mg Q24H SQ 02/10/16 11:00 Miscellaneous Information ALL NURSING DEPARTME... UNSCH PRN XX 02/09/16 14:30 02/10/16 14:29 A/P Assessment and Plan 85 year old female with h/o COPD, HTN, MT not requiring stents presenting with: Discharge Planning To PT at rehab pending clearance by ortho, normalization of electrolytes, treatment of UTI Problem List: (1) Nondisplaced trimalleolar fracture of left lower leg, initialencounter for closed fracture Status: Acute Plan: Secondary to mechanical fall. Noted on Left foot XR. No prodromal symptoms, neurologic & cardiopulmonary exam reassuring. No need to work up additional causes of fall at this time. CT head negative for intracranial bleed * Orthopedics consulted, appreciate recommendations * POD 0 from surgery L ankle * PT eval & treat - recommending rehab inpatient * CM consult for discharge planning * Tylenol 650 mg PO Q6H scheduled * Ibuprofen, Oxycodone PRN additional pain (2) Hypernatremia Status: Resolved Plan: Na 150 on admission, now normalized * S/p 1 L NS bolus in ED and subsequent MIVF * NS at 70 cc/hr * Follow BMP (3) Hypokalemia Status: Resolved Plan: Potassium 2.7 on admission, asymptomatic Now normalized * S/P 80 mEq KCl PO in ED * Monitor BMP, replete as needed * Hold home lasix * Telemetry (4) UTI (urinary tract infection) Status: Acute Plan: Asymptomatic, UA showing leuk esterase, many WBC UCx growing fernando-sensitive E coli * Continue Rocephin 1 g IV daily (5) Chronic obstructive pulmonary disease Status: Chronic Plan: Stable, on home oxygen * DuoNeb nebs every 4 hours as needed for shortness of breath (6) Congestive heart failure Status: Chronic Plan: No CHF per patient and daughter, but on home lasix for "fluid around heart" and carries CHF diagnosis in EMR Mild crackles on exam, asymptomatic currently * Go light on IVF, 70 cc/hr only * Given 20 mg lasix post-operatively * Incentive spirometry to prevent atelectasis (7) Postherpetic neuralgia Status: Chronic Plan: Stable * Continue home gabapentin (8) HTN (hypertension) Status: Chronic Plan: BP wnl and stable * Continue home metoprolol (9) FEN/PPX Status: Acute Plan: Fluids: As above Elecs: As above Nutrition: Diet regular basic DVT: SCDs bilateral knee high, will d/c and start pharmacologic PPX once cleared of ICH Problem Qualifiers (1) UTI (urinary tract infection): Qualified Code: N30.00 - Acute cystitis without hematuria (2) Chronic obstructive pulmonary disease: Qualified Code: J44.9 - Chronic obstructive pulmonary disease, unspecified COPD type (3) Congestive heart failure: Qualified Code: I50.9 - Chronic congestive heart failure, unspecified congestive heart failure type (4) HTN (hypertension): Qualified Code: I10 - Essential hypertension Abdiel Ayala MD R1 Feb 09, 2016 16:21
--- NOTE | 2016-02-09 17:52 | RADRPT ---
EXAM DATE/TIME: 02/09/2016 11:02 [facility] COMPARISON: ANKLE LEFT COMPLETE ([id number]), February 08, 2016, 17:05. INDICATIONS : Left ankle fracture repair. OR. MEDICAL HISTORY : None. SURGICAL HISTORY : None. ENCOUNTER: Initial ACUITY: 1 day PAIN SCORE: Non-responsive. LOCATION: Left ankle FINDINGS: Interim open reduction internal fixation of the left ankle fracture/subluxation. There are 2 interfra gmentary screws of the medial malleolus with anatomic alignment. There is lateral screw and plate fix ation of the distal fibula with anatomic alignment. No persistent subluxations are demonstrated. CONCLUSION: Interim left ankle ORIF as above. Anatomic alignment. No acute complication demonstrated. Oscar Paulino MD on February 09, 2016 at 17:49 Board Certified Radiologist. This report was verified electronically.
[2016-02-09 20:00] VITALS: BP 117/68; PULSE 73; RESP 19; TEMP 96.6; O2SAT 92
[2016-02-09] MEDS: risperiDONE 0.25 MG TAB PO SCH (22:23)
[2016-02-09] MEDS: ATORVASTATIN 20 MG TAB PO SCH (22:23)
[2016-02-10] VITALS (9 sets, daily range): BP systolic 117–136; BP diastolic 56–66; PULSE 64–79; RESP 16–20; TEMP 96.4–98; O2SAT 92–97
[2016-02-10] MEDS: ACETAMINOPHEN 325 MG TAB PO SCH ×2 (04:24→10:00)
[2016-02-10 06:28] LABS: AUTOMATED NEUTROPHIL # 9.3 TH/MM3 (1.8-7.7); BASOPHIL # 0.1 TH/MM3 (0-0.2); BASOPHIL % 0.6 % (0.0-2.0); HEMATOCRIT 31.9 % (35.0-46.0); HEMO FLAGS DIFF FINAL; LYMPH % 11.6 % (9.0-44.0); LYMPHOCYTE # 1.4 TH/MM3 (1.0-4.8); MEAN CELL VOLUME 90.6 FL (80.0-100.0); MEAN CORPUSCULAR HEMOGLOBIN 28.2 PG (27.0-34.0); MEAN CORPUSCULAR HGB CONC 31.1 % (32.0-36.0); MONO % 13.5 % (0.0-8.0); NEUT % 74.3 % (16.0-70.0); PLATELET COUNT 175 TH/MM3 (150-450); RED BLOOD COUNT 3.52 MIL/MM3 (4.00-5.30); RED CELL DISTRIBUTION WIDTH 14.2 % (11.6-17.2); WHITE BLOOD COUNT 12.5 TH/MM3 (4.0-11.0)
[2016-02-10 06:57] LABS: BICARBONATE 36.3 MEQ/L (21.0-32.0); POTASSIUM 4.9 MEQ/L (3.5-5.1)
--- NOTE | 2016-02-10 07:03 | PD.ORT.PN ---
Subjective Subjective Remarks POD 1 s/p ORIF left ankle. doing well. pain controlled. states needs to get out of bed to go to restroom Objective Vitals Vital Signs Date Time Temp Pulse Resp B/P Pulse Ox O2 Delivery O2 Flow Rate FiO2 02/10/16 04:00 96.8 68 19 125/56 92 02/10/16 01:41 97.0 73 17 125/58 97 02/09/16 23:24 16 02/09/16 20:00 96.6 73 19 117/68 92 02/09/16 18:10 Nasal Cannula 3.00 02/09/16 16:00 95.2 66 18 108/57 93 02/09/16 15:30 92 Nasal Cannula 3.00 02/09/16 15:27 93 Nasal Cannula 3.00 02/09/16 13:15 98.1 58 18 128/49 94 Nasal Cannula 3 02/09/16 13:00 55 18 127/50 95 Nasal Cannula 4 02/09/16 12:45 60 16 143/57 95 Nasal Cannula 4 02/09/16 12:30 71 16 14/56 95 Nasal Cannula 4 02/09/16 12:15 68 14 158/59 97 Simple Mask 6 02/09/16 12:00 75 15 96/74 92 Simple Mask 6 02/09/16 11:45 70 14 150/73 93 Simple Mask 6 02/09/16 11:33 98.3 92 16 144/45 99 02/09/16 09:25 2.00 02/09/16 08:23 Nasal Cannula 3.00 02/09/16 08:00 97.4 73 28 151/57 99 I/O 02/09/16 02/09/16 02/09/16 02/10/16 02/10/16 02/10/16 07:00 15:00 23:00 07:00 15:00 23:00 Intake Total 825 ml 755 ml 240 ml Output Total 1150 ml Balance -325 ml 755 ml 240 ml Intake Oral 0 ml 240 ml 240 ml IV Total 25 ml 515 ml Other 800 ml Output Urine Total 1100 ml Estimated Blood Loss 50 ml # Voids 2 4 1 # Bowel Movements 0 0 0 Result Diagram: 02/10/16 0612 02/10/16 06 Objective Remarks LLE: +short leg splint. intact. NVI. clean and dry Assessment & Plan Assessment and Plan 1) Left Ankle Fx s/p ORIF - POD 1 -NWB -maintain splint -elevate -CM for rehab placement -f/u with [facility] or [facility] in 2 weeks Octavio Cadena Feb 10, 2016 07:03
[2016-02-10] MEDS: METOPROLOL TARTRATE 25 MG TAB PO SCH ×2 (09:00→20:11)
[2016-02-10] MEDS: CHOLECALCIFEROL (VIT D3) 5000 UNIT CAP PO SCH (09:00)
[2016-02-10] MEDS: ASPIRIN EC 81 MG TABEC PO SCH (09:00)
[2016-02-10] MEDS: DULoxetine HCl DR 60 MG CAP PO SCH (09:00)
[2016-02-10] MEDS: amLODIPine BESYLATE 5 MG TAB PO SCH (09:00)
[2016-02-10] MEDS: GABAPENTIN 400 MG CAP PO SCH ×3 (09:00→17:38)
[2016-02-10] MEDS: cefTRIAXone INJ 1,000 MG in SODIUM CHLORIDE 0.9% INJ 100 ML IV SCH (10:00)
[2016-02-10] MEDS: ENOXAPARIN SODIUM 40 MG/0.4 ML SYRINGE SQ SCH (11:00)
--- NOTE | 2016-02-10 11:31 | HHI.FPPN ---
Subjective Remarks POD 1 from surgery on L ankle. No major events overnight, just confused after anesthesia. She has been refusing her regular meds because she doesn't trust that the nurses are real nurses, very different than prior to surgery. Denies CP , SOB, or any pain from surgery. (Abdiel Ayala MD R1) Objective Vitals Vital Signs Date Time Temp Pulse Resp B/P Pulse Ox O2 Delivery O2 Flow Rate FiO2 02/10/16 08:00 98.0 64 18 117/58 92 02/10/16 07:42 94 Nasal Cannula 3.00 02/10/16 04:00 96.8 68 19 125/56 92 02/10/16 01:41 97.0 73 17 125/58 97 02/09/16 23:24 16 02/09/16 20:00 96.6 73 19 117/68 92 02/09/16 18:10 Nasal Cannula 3.00 02/09/16 16:00 95.2 66 18 108/57 93 02/09/16 15:30 92 Nasal Cannula 3.00 02/09/16 15:27 93 Nasal Cannula 3.00 02/09/16 13:15 98.1 58 18 128/49 94 Nasal Cannula 3 02/09/16 13:00 55 18 127/50 95 Nasal Cannula 4 02/09/16 12:45 60 16 143/57 95 Nasal Cannula 4 02/09/16 12:30 71 16 14/56 95 Nasal Cannula 4 02/09/16 12:15 68 14 158/59 97 Simple Mask 6 02/09/16 12:00 75 15 96/74 92 Simple Mask 6 02/09/16 11:45 70 14 150/73 93 Simple Mask 6 02/09/16 11:33 98.3 92 16 144/45 99 I/O 02/09/16 02/09/16 02/09/16 02/10/16 02/10/16 02/10/16 06:59 14:59 22:59 06:59 14:59 22:59 Intake Total 825 ml 755 ml 240 ml Output Total 750 ml 400 ml Balance 75 ml 355 ml 240 ml Intake Oral 240 ml 240 ml IV Total 25 ml 515 ml Other 800 ml Output Urine Total 700 ml 400 ml Estimated Blood Loss 50 ml # Voids 2 4 1 # Bowel Movements 0 0 0 (Abdiel Ayala MD R1) Result Diagram: 02/10/16 0612 02/10/16 0612 Imaging Last Impressions Ankle X-Ray 02/09/16 0000 Signed Impressions: Service Date/Time: Tuesday, February 09, 2016 11:02 - CONCLUSION: Interim left ankle ORIF as above. Anatomic alignment. No acute complication demonstrated. Oscar Paulino MD Head CT 02/07/16 0000 Signed Impressions: Service Date/Time: Sunday, February 07, 2016 12:20 - CONCLUSION: No significant change has occurred. Jasbir Holliday MD Objective Remarks GEN: WDWN elderly white female lying in bed asleep in NAD RESP: Mild crackles diffusely, no wheezes CV: NRRR, normal s1/s2, no MRG Abd: Soft, NDNT MSK: Left ankle with splinting and ENEDELIA wrap up to below knee. No cyanosis or edema noted. NEURO: Awake, alert, oriented to place, refuses questioning about person/time. Agitated, talking in circles. Very occasionally tearful asking for daughter. Medications and IVs Current Medications Medications (Trade) Dose Ordered Sig/Tony Route Start Time Stop Time Status Last Admin (NS Flush) 2 ml UNSCH PRN IVF 02/07/16 07:30 (Xanax) 0.25 mg Q6H PRN PO 02/07/16 11:00 02/08/16 15:40 (Ecotrin Ec) 81 mg DAILY PO 02/08/16 09:00 02/08/16 09:00 (Lipitor) 20 mg HS PO 02/07/16 21:00 02/09/16 22:23 (Cymbalta Dr) 60 mg DAILY PO 02/08/16 09:00 02/09/16 08:17 (Neurontin) 400 mg TID PO 02/07/16 13:00 02/09/16 16:42 (Lopressor) 12.5 mg BID PO 02/07/16 21:00 02/09/16 22:23 (risperDAL) 0.25 mg HS PO 02/07/16 21:00 02/09/16 22:23 (Pill Splitter) 1 ea UNSCH PRN OTHER 02/07/16 11:15 (Vitamin D3) 5,000 units DAILY PO 02/07/16 13:00 02/08/16 09:00 (Tylenol) 650 mg Q6H PO 02/07/16 16:00 02/10/16 04:24 (Motrin) 400 mg Q6H PRN PO 02/07/16 13:30 02/08/16 02:36 (Roxicodone) 10 mg Q4H PRN PO 02/07/16 13:30 (Roxicodone) 5 mg Q4H PRN PO 02/07/16 13:30 (Narcan Inj) 0.4 mg UNSCH PRN IV 02/07/16 13:30 Senna/Docusate Sodium 2 tab 2 tab BID PRN PO 02/07/16 13:30 (Rocephin Inj/NS Inj) 100 ml @ 200 mls/hr Q24H IV 02/08/16 10:00 02/10/16 10:00 (Norvasc) 5 mg DAILY PO 02/08/16 15:00 02/09/16 08:17 ([place] 7.5-325 Mg) 1 tab Q4H PRN PO 02/09/16 11:30 (Zofran Inj) 4 mg Q4H PRN IVP 02/09/16 11:30 (Morphine Inj) 3 mg Q3H PRN IV PUSH 02/09/16 11:30 (Lovenox Inj) 40 mg Q24H SQ 02/10/16 11:00 Miscellaneous Information ALL NURSING DEPARTME... UNSCH PRN XX 02/09/16 14:30 02/10/16 14:29 (Abdiel Ayala MD R1) A/P Assessment and Plan 85 year old female with h/o COPD, HTN, [place] not requiring stents presenting with: Discharge Planning To PT at rehab pending clearance by ortho, normalization of electrolytes, treatment of UTI (Abdiel Ayala MD R1) Attending Attestation Patient seen and examined. Case reviewed and discussed Agree with plan of care as discussed with me and documented in the resident note. Persistent agitation. Will check CXR, consider ABG Monitor for infection Spoke with daughter and RN at the bedside. (Analy Olmstead MD) Problem List: (1) Nondisplaced trimalleolar fracture of left lower leg, initialencounter for closed fracture Status: Acute Plan: POD 1 from surgery of left ankle Secondary to mechanical fall. Noted on Left foot XR. No prodromal symptoms, neurologic & cardiopulmonary exam reassuring. No need to work up additional causes of fall at this time. CT head negative for intracranial bleed * Orthopedics consulted, appreciate recommendations * PT eval & treat - recommending rehab inpatient * CM consult for discharge planning * Tylenol 1000 mg IV Q6H scheduled * Hold opiate PRNs for pain at this time since she had such a strong reaction to anesthesia; will re-order for pain as needed * Ibuprofen PRN * Family at bedside, updated on plan for pain management and ultimately disposition to [place] rehab (2) Hypernatremia Status: Resolved Plan: Na 150 on admission, now normalized * S/p 1 L NS bolus in ED and subsequent MIVF * Discontinue MIVF * Follow BMP (3) Hypokalemia Status: Resolved Plan: Potassium 2.7 on admission, asymptomatic Now normalized * S/P 80 mEq KCl PO in ED * Monitor BMP, replete as needed * Hold home lasix, received 1 dose on POD 0 * Telemetry (4) UTI (urinary tract infection) Status: Acute Plan: Asymptomatic, UA showing leuk esterase, many WBC UCx growing fernando-sensitive E coli * Continue Rocephin 1 g IV daily (5) Chronic obstructive pulmonary disease Status: Chronic Plan: Stable, on home oxygen * DuoNeb nebs every 4 hours as needed for shortness of breath (6) Congestive heart failure Status: Chronic Plan: No CHF per patient and daughter, but on home lasix for "fluid around heart" and carries CHF diagnosis in EMR Mild crackles on exam, asymptomatic currently * IVF D/C'd * Given 20 mg lasix post-operatively, hold home lasix for now * Incentive spirometry to prevent atelectasis (7) Postherpetic neuralgia Status: Chronic Plan: Stable * Continue home gabapentin (8) HTN (hypertension) Status: Chronic Plan: BP wnl and stable * Continue home metoprolol (9) FEN/PPX Status: Acute Plan: Fluids: As above Elecs: As above Nutrition: Diet regular basic DVT: Lovenox 40 mg SQ daily (Abdiel Ayala MD R1) Problem Qualifiers (1) UTI (urinary tract infection): Qualified Code: N30.00 - Acute cystitis without hematuria (2) Chronic obstructive pulmonary disease: Qualified Code: J44.9 - Chronic obstructive pulmonary disease, unspecified COPD type (3) Congestive heart failure: Qualified Code: I50.9 - Chronic congestive heart failure, unspecified congestive heart failure type (4) HTN (hypertension): Qualified Code: I10 - Essential hypertension bAdiel Ayala MD R1 Feb 10, 2016 11:31 Analy Olmstead MD Feb 10, 2016 15:43
[2016-02-10] MEDS: ACETAMINOPHEN 1000 MG/100 ML VIAL IV SCH ×3 (13:26→23:50)
[2016-02-10] MEDS ORDERED: FUROSEMIDE 40 MG/4 ML VIAL IV PUSH ONE (16:00)
--- NOTE | 2016-02-10 16:01 | RADRPT ---
EXAM DATE/TIME: 02/10/2016 15:09 [facility] COMPARISON: CHEST SINGLE AP, December 07, 2015, 10:35. ANKLE LEFT LIMITED (AP&LAT), February 09, 2016, 11:02. INDICATIONS : Shortness of breath. MEDICAL HISTORY : Hypertension. Chronic obstructive pulmonary disease. Cardiovascular disease. SURGICAL HISTORY : Tonsillectomy. ENCOUNTER: Subsequent ACUITY: 4 - 6 days PAIN SCORE: 0/10 LOCATION: Bilateral chest FINDINGS: The heart is enlarged. There is left basilar effusion and consolidation. There is diffuse interstitia l prominence suggesting congestive failure. Changes appear similar to prior dated 12/07/15.The bony s tructures are grossly intact. CONCLUSION: 1. Cardiomegaly with left basilar effusion and consolidation. There is diffuse interstitial prominenc e. Exam would suggest congestive failure. Dewayne Moody MD on February 10, 2016 at 15:56 Board Certified Radiologist. This report was verified electronically.
[2016-02-10] MEDS: risperiDONE 0.25 MG TAB PO SCH (20:10)
[2016-02-10] MEDS: ATORVASTATIN 20 MG TAB PO SCH (20:10)
[2016-02-11] VITALS (8 sets, daily range): BP systolic 122–148; BP diastolic 5–70; PULSE 74–94; RESP 16–20; TEMP 97.2–100; O2SAT 90–95
[2016-02-11] MEDS: RESP: ALBUTEROL 2.5 MG/IPRATROPIUM 0.5 MG NEB (PRN) NEB (03:26)
[2016-02-11] MEDS: ACETAMINOPHEN 1000 MG/100 ML VIAL IV SCH ×3 (05:25→12:34)
--- NOTE | 2016-02-11 06:57 | PD.ORT.PN ---
Subjective Subjective Remarks POD 2 s/p ORIF left ankle. patient blatantly confused and nurse reports has been yelling "hello" for a few hours. patient states that I am "in on the heist". Objective Vitals Vital Signs Date Time Temp Pulse Resp B/P Pulse Ox O2 Delivery O2 Flow Rate FiO2 02/11/16 04:07 100.0 94 16 139/70 94 02/11/16 00:20 98.3 74 17 133/55 95 02/10/16 23:00 95 Nasal Cannula 3.00 02/10/16 21:30 79 02/10/16 20:15 97.7 77 16 120/66 95 02/10/16 20:00 95 Nasal Cannula 3.00 02/10/16 16:00 97.4 68 20 122/60 93 02/10/16 12:00 96.4 76 18 136/60 92 02/10/16 08:00 98.0 64 18 117/58 92 02/10/16 07:42 94 Nasal Cannula 3.00 I/O 02/10/16 02/10/16 02/10/16 02/11/16 02/11/16 02/11/16 06:59 14:59 22:59 06:59 14:59 22:59 Intake Total 240 ml 1105 ml 480 ml 360 ml Output Total 360 ml Balance 240 ml 1105 ml 480 ml 0 ml Intake Oral 240 ml 480 ml 480 ml 360 ml IV Total 625 ml Output Urine Total 360 ml # Voids 1 8 1 2 # Bowel Movements 0 0 0 1 Result Diagram: 02/10/16 0612 02/10/16 0612 Objective Remarks LLE: +short leg splint. intact. NVI. clean and dry Assessment & Plan Assessment and Plan 1) Left Ankle Fx s/p ORIF - POD 2 -NWB -maintain splint -elevate -CM for rehab placement -f/u with [facility] or [facility] in 2 weeks -medicine to manage confusion Octavio Cadena Feb 11, 2016 06:56
[2016-02-11] MEDS: GABAPENTIN 400 MG CAP PO SCH ×2 (09:00→12:36)
[2016-02-11] MEDS: amLODIPine BESYLATE 5 MG TAB PO SCH (09:00)
[2016-02-11] MEDS: METOPROLOL TARTRATE 25 MG TAB PO SCH ×2 (09:00→22:30)
[2016-02-11] MEDS: DULoxetine HCl DR 60 MG CAP PO SCH (09:00)
[2016-02-11] MEDS: ASPIRIN EC 81 MG TABEC PO SCH (09:00)
[2016-02-11] MEDS: CHOLECALCIFEROL (VIT D3) 5000 UNIT CAP PO SCH (09:00)
[2016-02-11] MEDS: FUROSEMIDE 20 MG TAB PO SCH (09:00)
[2016-02-11] MEDS ORDERED: FUROSEMIDE 40 MG/4 ML VIAL IV PUSH ONE (10:00)
[2016-02-11] MEDS ORDERED: HALOPERIDOL LACTATE 5 MG/ML AMP IM ONE (10:00)
[2016-02-11] MEDS ORDERED: LACTULOSE SYRUP 20 GM/30 ML CUP PO PRN (10:00)
[2016-02-11] MEDS ORDERED: VANCOMYCIN INJ 1,050 MG in SODIUM CHLOR 0.9% 250 ML INJ 250 ML IV SCH (10:00)
[2016-02-11] MEDS ORDERED: Vancomycin Consult Pharmacy XX SCH (10:45)
[2016-02-11] MEDS: ENOXAPARIN SODIUM 40 MG/0.4 ML SYRINGE SQ SCH (11:00)
--- NOTE | 2016-02-11 11:55 | RADRPT ---
EXAM DATE/TIME: 02/11/2016 11:38 [facility] COMPARISON: CHEST SINGLE AP, February 10, 2016, 15:09. INDICATIONS : Short of breath. MEDICAL HISTORY : Chronic obstructive pulmonary disease. Hypertension. SURGICAL HISTORY : None. ENCOUNTER: Initial ACUITY: 4 - 6 days PAIN SCORE: 0/10 LOCATION: Bilateral chest FINDINGS: There is persistent consolidation in the left base with associated effusion. Mild parenchymal opacity in the right base also unchanged. Substantial rotation limits cardiac and mediastinal evaluation. CONCLUSION: Grossly stable chest Oscar Fowler MD on February 11, 2016 at 11:52 Board Certified Radiologist. This report was verified electronically.
[2016-02-11 13:27] LABS: BLOOD, URINE NEG (NEG); GLUCOSE,URINE NEG (NEG); KETONE, URINE TRACE mg/dL (NEG); NITRITE,URINE NEG (NEG); PH, URINE 6.5 (5.0-8.5); URINE COLOR LIGHT-YELLOW (YELLW/STRAW)
[2016-02-11 13:28] LABS: COMMENT (UR) CATH-CULT NOT IND; CULTURE IF INDICATED CATH CULTURE NOT IND
[2016-02-11] MEDS: PIPERACIL-TAZO 4.5 GM PREMIX 100 ML IV SCH ×2 (14:14→22:29)
[2016-02-11] MEDS: VANCOMYCIN INJ 1,500 MG in SODIUM CHLORID 0.9% 500 ML INJ 500 ML IV SCH (14:14)
[2016-02-11 14:23] LABS: BLOOD GAS BASE EXCESS 15.4 mmol/L (-2-2); BLOOD GAS CARBOXYHEMOGLOBIN 1.5 % (0-4); BLOOD GAS HCO3 41 mmol/L (22-26); BLOOD GAS O2 HGB SATURATION 66 % (90-100); BLOOD GAS OXYGEN CONTENT 9.4 Vol % (12.0-20.0); BLOOD GAS PCO2 66 mmHg (38-42); BLOOD GAS PO2 36 mmHg (61-120); TEMP CORR TO 98.6
[2016-02-11 14:25] LABS: CRITICAL VALUE YES; FIO2 21 %; OXYGEN DEVICE ROOM AIR
[2016-02-11 14:26] LABS: DRAW SITE RT RADIAL; NUMBER OF ARTERIAL PUNCTURES 1; STAT NO
[2016-02-11 14:38] LABS: AUTOMATED NEUTROPHIL # 10.2 TH/MM3 (1.8-7.7); BASOPHIL # 0.1 TH/MM3 (0-0.2); BASOPHIL % 0.9 % (0.0-2.0); EOSINOPHIL # 0.1 TH/MM3 (0-0.4); EOSINOPHIL % 0.5 % (0.0-4.0); HEMATOCRIT 32.5 % (35.0-46.0); HEMO FLAGS DIFF FINAL; LYMPH % 10.9 % (9.0-44.0); LYMPHOCYTE # 1.4 TH/MM3 (1.0-4.8); MEAN CELL VOLUME 89.7 FL (80.0-100.0); MEAN CORPUSCULAR HEMOGLOBIN 27.8 PG (27.0-34.0); MONO % 10.6 % (0.0-8.0); NEUT % 77.1 % (16.0-70.0); PLATELET COUNT 197 TH/MM3 (150-450); RED BLOOD COUNT 3.63 MIL/MM3 (4.00-5.30); RED CELL DISTRIBUTION WIDTH 14.1 % (11.6-17.2); WHITE BLOOD COUNT 13.2 TH/MM3 (4.0-11.0)
[2016-02-11 15:06] LABS: HDL CHOLESTEROL 69.4 MG/DL (40.0-60.0)
[2016-02-11 15:16] LABS: ALKALINE PHOSPHATASE 63 U/L (45-117); ALT (GPT) 20 U/L (10-53); ANION GAP 4 MEQ/L (5-15); AST (GOT) 17 U/L (15-37); BICARBONATE 39.7 MEQ/L (21.0-32.0); BLOOD UREA NITROGEN 21 MG/DL (7-18); CHLORIDE 101 MEQ/L (98-107); GLOMERULAR FILTRATION RATE 61 ML/MIN (>89); SODIUM (NA) 145 MEQ/L (136-145); TOTAL BILIRUBIN ADULT 0.2 MG/DL (0.2-1.0)
--- NOTE | 2016-02-11 16:14 | HHI.PR ---
Addendum to Inpatient Note Addendum Reason: Additional Documentation Additional Information S: Ms. Davis was re-evaluated this afternoon; patient was in the company of her daughters. Patient was initially sleeping but awoke and was appropriate. Patient was compliant with instructions. Orientation not formally tested, but patient no longer complained of "poop" on ceilings or was accusatory of staff being police officers. Patient more oriented to surroundings, and states that she would like to go to rehab. Patient reported that she needed to cough up mucus but otherwise did not report complaints. Daughter reported that patient was quiet after receiving Haldol. She reported that patient had an episode of delirium ~5 years ago which was prolonged associated with prior hospitalization. O: O2 Sat 94% on 3L O2 via NC, HR 70 Gen: Patient awake, in no acute distress Resp: No wheezing, decreased breath sounds, clear vs mild congestion -Patient coughed up yellowish mucus on exam Cardiovascular: Regular rate and rhythm; normal peripheral perfusion Neuro: No focal CN or peripheral deficits A/P: Hypoxia Impression: ABG obtained this afternoon concerning with O2 sat 66%, pO2 36, pCO2 66. pH 7.41 on room air. ABG less concerning since patient chronically on 2 L O2 at home. -Bedside O2 sat - 94% on 3 L O2 -Will repeat ABG on O2 -Continue to monitor vitals/O2; will need to assure that patient does not remove O2 Delerium Impression: Unclear etiology. No obvious causative medication. Persistent leukocytosis during hospitalization. Cough productive of mucus during exam -CXR- not suggestive of pneumonia -UA- not suggestive of UTI -Blood culturesx2 pending --Will continue empiric treatment with Vancomycin and Zosyn at this time while awaiting cultures --Haldol 1mg PRN for symptom control --Will consider sitter --Will hold home Gabapentin Syed Garcia MD R2 Feb 11, 2016 16:14
[2016-02-11 17:58] LABS: BLOOD GAS BASE EXCESS 14.3 mmol/L (-2-2); BLOOD GAS CARBOXYHEMOGLOBIN 1.5 % (0-4); BLOOD GAS HCO3 41 mmol/L (22-26); BLOOD GAS METHEMOGLOBIN 0.9 % (0-2); BLOOD GAS O2 HGB SATURATION 93 % (90-100); BLOOD GAS OXYGEN CONTENT 13.6 Vol % (12.0-20.0); BLOOD GAS PCO2 76 mmHg (38-42); BLOOD GAS PO2 80 mmHg (61-120); BLOOD GAS TOTAL HGB 10.3 G/DL (12.0-16.0); CRITICAL VALUE YES; DRAW SITE RT RADIAL; LITER FLOW 4 L/M; OXYGEN DEVICE NASAL CANNULA; TEMP CORR TO 98.6
[2016-02-11 17:59] LABS: NUMBER OF ARTERIAL PUNCTURES 1; STAT NO; ULNAR PULSE PRESENT
[2016-02-11] MEDS: ACETAMINOPHEN 325 MG TAB PO SCH (18:00)
[2016-02-11] MEDS ORDERED: HALOPERIDOL LACTATE 5 MG/ML AMP IM PRN (18:00)
--- NOTE | 2016-02-11 18:31 | HHI.FPPN ---
Subjective Remarks Late Entry Note (Patient initially seen at 1030 02/10): Ms. Davis was seen this morning; on entering the exam room the patient was accusatory of medical team not being her physician. Patient made several confused and or hallucinatory statements such as "poop" was dripping from the ceiling. Patient seemingly disoriented to location; patient would not answer questions for accurate assessment of orientation. (Syed Garcia MD R2) Objective Vitals Vital Signs Date Time Temp Pulse Resp B/P Pulse Ox O2 Delivery O2 Flow Rate FiO2 02/11/16 16:00 97.2 85 16 133/5 92 02/11/16 12:00 98.0 90 20 130/70 90 02/11/16 07:58 97.4 92 20 122/60 92 02/11/16 07:20 92 02/11/16 04:07 100.0 94 16 139/70 94 02/11/16 00:20 98.3 74 17 133/55 95 02/10/16 23:00 95 Nasal Cannula 3.00 02/10/16 21:30 79 02/10/16 20:15 97.7 77 16 120/66 95 02/10/16 20:00 95 Nasal Cannula 3.00 I/O 02/10/16 02/10/16 02/10/16 02/11/16 02/11/16 02/11/16 07:00 15:00 23:00 07:00 15:00 23:00 Intake Total 240 ml 1105 ml 480 ml 360 ml 660 ml Output Total 360 ml Balance 240 ml 1105 ml 480 ml 0 ml 660 ml Intake Oral 240 ml 480 ml 480 ml 360 ml 660 ml IV Total 625 ml Output Urine Total 360 ml # Voids 1 8 1 2 5 # Bowel Movements 0 0 0 1 (Syed Garcia MD R2) Result Diagram: 02/11/16 1415 02/11/16 1415 Imaging Last Impressions Chest X-Ray 02/11/16 0000 Signed Impressions: Service Date/Time: Thursday, February 11, 2016 11:38 - CONCLUSION: Grossly stable chest Oscar Fowler MD Ankle X-Ray 02/09/16 0000 Signed Impressions: Service Date/Time: Tuesday, February 09, 2016 11:02 - CONCLUSION: Interim left ankle ORIF as above. Anatomic alignment. No acute complication demonstrated. Oscar Paulino MD Head CT 02/07/16 0000 Signed Impressions: Service Date/Time: Sunday, February 07, 2016 12:20 - CONCLUSION: No significant change has occurred. Jasbir Holliday MD Objective Remarks GEN: WDWN elderly white female lying in bed asleep in NAD RESP: Normal rate; no visible distress CV: Grossly normal perfusion Abd: unable to assess due to patient agitation MSK: Left ankle with splinting and ENEDELIA wrap up to below knee. NEURO: Awake, disoriented, seemingly hallucinating; suggestive of delerium ( Syed Garcia MD R2) A/P Assessment and Plan 85 year old female with h/o COPD, HTN, [place] not requiring stents presenting with: Discharge Planning To PT at rehab pending clearance by ortho, normalization of electrolytes, treatment of UTI (Syed Garcia MD R2) Attending Attestation Patient seen and examined. Case reviewed and discussed Agree with plan of care as discussed with me and documented in the resident note. (Analy Olmstead MD) Problem List: (1) Delirium due to conditions classified elsewhere Status: Acute Plan: Impression: Delirium on exam this morning; unclear etiology. Persistent leukocytosis during hospitalization. Cough productive of mucus during exam -check CXR-negative - check UA- negative -Blood culturesx2 pending --Will continue empiric treatment with Vancomycin and Zosyn at this time while awaiting cultures --Haldol 1mg PRN for symptom control -Will check ammonia, TSH -Will check ABG for possible hypercarbia/hypoxemia (2) Nondisplaced trimalleolar fracture of left lower leg, initialencounter for closed fracture Status: Acute Plan: POD 2 from surgery of left ankle Secondary to mechanical fall. Noted on Left foot XR. No prodromal symptoms, neurologic & cardiopulmonary exam reassuring. No need to work up additional causes of fall at this time. CT head negative for intracranial bleed Orthopedics consulted, appreciate recommendations -PT eval & treat - recommending rehab inpatient --NWB -maintain splint -elevate -CM for rehab placement -f/u with [facility] or [facility] in 2 weeks Pain Control: -Tylenol 1000 mg IV Q6H scheduled -Hold opiate PRNs for pain at this time since she had such a strong reaction to anesthesia; will re-order for pain as needed -Ibuprofen PRN (3) UTI (urinary tract infection) Status: Resolved Plan: Asymptomatic, UA showing leuk esterase, many WBC UCx growing fernando-sensitive E coli * Stop Rocephin 1 g IV daily and start broad spectrum antibiotics * Recheck UA due to delirium (4) Congestive heart failure Status: Chronic Plan: Impression: No CHF per patient and daughter, but on home lasix for " fluid around heart" and carries CHF diagnosis in EMR Mild crackles on exam, asymptomatic currently Repeat CXR 02/09 demonstrative of cardiomegaly with left basilar effusion and consolidation. Diffuse interstitial prominence suggestive of congestive failure * Will give Lasix 40mg x1 today * Continue to monitor * Will check BNP (5) Chronic obstructive pulmonary disease Status: Chronic Plan: Stable, on home oxygen * DuoNeb nebs every 4 hours as needed for shortness of breath (6) Postherpetic neuralgia Status: Chronic Plan: Stable * Continue home gabapentin (7) HTN (hypertension) Status: Chronic Plan: BP wnl and stable * Continue home metoprolol (8) FEN/PPX Status: Acute Plan: Fluids: As above Elecs: As above Nutrition: Diet regular basic DVT: Lovenox 40 mg SQ daily (Syed Garcia MD R2) Problem Qualifiers (1) UTI (urinary tract infection): Qualified Code: N30.00 - Acute cystitis without hematuria (2) Congestive heart failure: Qualified Code: I50.9 - Chronic congestive heart failure, unspecified congestive heart failure type (3) Chronic obstructive pulmonary disease: Qualified Code: J44.9 - Chronic obstructive pulmonary disease, unspecified COPD type (4) HTN (hypertension): Qualified Code: I10 - Essential hypertension Syed Garcia MD R2 Feb 11, 2016 18:31 Analy Olmstead MD Feb 12, 2016 16:27
[2016-02-11] MEDS: HALOPERIDOL LACTATE 5 MG/ML AMP IM SCH (20:00)
[2016-02-11] MEDS: ATORVASTATIN 20 MG TAB PO SCH (22:29)
[2016-02-11] MEDS: risperiDONE 0.25 MG TAB PO SCH (22:31)
[2016-02-12] VITALS (9 sets, daily range): BP systolic 116–166; BP diastolic 50–75; PULSE 57–75; RESP 16–22; TEMP 96–98.7; O2SAT 89–98
[2016-02-12] MEDS: ACETAMINOPHEN 325 MG TAB PO SCH ×5 (01:47→23:06)
[2016-02-12] MEDS: PIPERACIL-TAZO 4.5 GM PREMIX 100 ML IV SCH ×2 (01:47→06:31)
[2016-02-12 01:54] LABS: BLOOD GAS BASE EXCESS 14.5 mmol/L (-2-2); BLOOD GAS CARBOXYHEMOGLOBIN 1.5 % (0-4); BLOOD GAS HCO3 40 mmol/L (22-26); BLOOD GAS METHEMOGLOBIN 0.8 % (0-2); BLOOD GAS O2 HGB SATURATION 86 % (90-100); BLOOD GAS OXYGEN CONTENT 14.5 Vol % (12.0-20.0); BLOOD GAS PCO2 68 mmHg (38-42); BLOOD GAS PO2 52 mmHg (61-120); TEMP CORR TO 98.6
[2016-02-12 01:57] LABS: CRITICAL VALUE YES
[2016-02-12 01:58] LABS: DRAW SITE RT RADIAL; LITER FLOW 3 L/M; NUMBER OF ARTERIAL PUNCTURES 1; OXYGEN DEVICE NASAL CANNULA; STAT NO; ULNAR PULSE PRESENT
[2016-02-12] MEDS: RESP: ALBUTEROL 2.5 MG/IPRATROPIUM 0.5 MG NEB (PRN) NEB ×3 (02:55→16:28)
--- NOTE | 2016-02-12 03:52 | HHI.PR ---
Addendum to Inpatient Note Addendum Reason: Additional Documentation Additional Information Subjective: Residents were paged at 2:41am regarding critical ABG and transient hypoxia to 88% while on NC. She also reports pleuritic left-sided chest pain behind the breast, only when taking a deep breath in. She is without other complaints and denies feeling short of breath. She states "maybe anxiety" as cause of her chest pain. Patient has not received albuterol PRN nebs in approximately 24 hours. Objective: General: Patient is lying in bed sleeping in NAD. On awakening she is pleasant and does not offer any complaints or signs of distress. Patient is not obviously tachypneic. Respiratory: She has diminished breath sounds with intermittent upper airway wheezing sounds. Possible crackles at the bases. She is mouth breathing. NC in place. CV: Regular rate and rhythm without murmurs. No chest wall tenderness to palpation. Neuro: Patient is alert and oriented to person. She is responsive to questioning and is pleasant. No signs of delirium. No focal neurologic deficits noted. Extremities: Left foot with splinting and Wai wrap below the knee, no obvious calf tenderness bilaterally. Assessment: 85-year-old female postoperative day 3 from surgical repair of trimalleolar fracture of left foot. She has been with altered mental status since procedure without obvious etiology. CXR from 02/10 showing stable left base consolidation with effusion, right base with parenchymal opacity as well. Patient is on Vanco and Zosyn since yesterday. CBC stable since admission without gross uptrending of WBC. Hypoxic while sleeping, likely secondary to mouth breathing. ABG showing pH 7.39, PCO2 68, PO2 52, bicarbonate 40, O2 saturation 86% on 3 L NC. Compared to ABG at approximately 6 PM, suggestive of CO2 retention but otherwise not significantly changed. Patient is sleeping comfortably and previous through her mouth when sleeping, and patient likely becomes hypoxic due to this. O2 sat is 98% while awake using nasal cannula. Low suspicion for cardiac etiology for chest pain given pleuritic presentation and likely pneumonia on CXR. Low suspicion for PE given patient comfortable, not tachycardic. Wells score is 1.5 suggesting low risk for PE at this time. Plan: Troponin, CK-MB, EKG initially ordered prior to evaluating patient, canceled due to low suspicion for cardiac etiology of chest pain after examining her Duo nebs are ordered PRN, asked noticed to request service Continue nasal cannula, O2 sat greater than 90% Patient has incentive spirometry and Acapella ordered, continue at bedside Recess O2 saturations regularly, with low threshold to initiate O2 by mask or more advanced interventions as indicated Threshold for advancing workup is low given the patient is postop, with AMS/ delirium, and hypoxia. Seen and discussed with Dr. Yanni Elizalde, PGY 3 Blanca Rodrigues MD R1 Feb 12, 2016 03:52
[2016-02-12] MEDS: HALOPERIDOL LACTATE 5 MG/ML AMP IM SCH (04:00)
--- NOTE | 2016-02-12 06:28 | PD.ORT.PN ---
Subjective Subjective Remarks POD 3 s/p ORIF left ankle. patient doing better. less confused. states that she is having difficulty telling what time it is. still slightly confused Objective Vitals Vital Signs Date Time Temp Pulse Resp B/P Pulse Ox O2 Delivery O2 Flow Rate FiO2 02/12/16 04:07 96.4 57 16 116/50 98 02/12/16 02:59 98 Nasal Cannula 4.00 02/12/16 00:12 96.8 67 16 130/75 95 02/11/16 20:39 92 Nasal Cannula 3.00 02/11/16 20:07 97.3 76 17 148/53 92 02/11/16 16:00 97.2 85 16 133/5 92 02/11/16 12:00 98.0 90 20 130/70 90 02/11/16 07:58 97.4 92 20 122/60 92 02/11/16 07:20 92 I/O 02/11/16 02/11/16 02/11/16 02/12/16 02/12/16 02/12/16 07:00 15:00 23:00 07:00 15:00 23:00 Intake Total 360 ml 660 ml 1302 ml Output Total 360 ml Balance 0 ml 660 ml 1302 ml Intake Oral 360 ml 660 ml 480 ml IV Total 822 ml Output Urine Total 360 ml # Voids 2 5 3 # Bowel Movements 1 0 Result Diagram: 02/11/16 1415 02/11/16 1415 Objective Remarks LLE: +short leg splint. intact. NVI. clean and dry Assessment & Plan Assessment and Plan 1) Left Ankle Fx s/p ORIF - POD 3 -NWB -maintain splint -elevate -CM for rehab placement -f/u with [facility] or [facility] in 2 weeks -ortho clear for discharge to rehab -medicine to manage confusion Octavio Cadena Feb 12, 2016 06:27
[2016-02-12 07:13] LABS: BASOPHIL # 0.1 TH/MM3 (0-0.2); BASOPHIL % 0.8 % (0.0-2.0); EOSINOPHIL # 0.4 TH/MM3 (0-0.4); EOSINOPHIL % 3.3 % (0.0-4.0); HEMATOCRIT 32.5 % (35.0-46.0); HEMO FLAGS DIFF FINAL; LYMPH % 13.1 % (9.0-44.0); LYMPHOCYTE # 1.4 TH/MM3 (1.0-4.8); MEAN CELL VOLUME 89.2 FL (80.0-100.0); MEAN CORPUSCULAR HEMOGLOBIN 28.3 PG (27.0-34.0); MEAN CORPUSCULAR HGB CONC 31.7 % (32.0-36.0); MONO % 9.5 % (0.0-8.0); NEUT % 73.3 % (16.0-70.0); PLATELET COUNT 184 TH/MM3 (150-450); RED BLOOD COUNT 3.64 MIL/MM3 (4.00-5.30); RED CELL DISTRIBUTION WIDTH 14.1 % (11.6-17.2)
[2016-02-12 07:32] LABS: BICARBONATE 40.9 MEQ/L (21.0-32.0); POTASSIUM 3.6 MEQ/L (3.5-5.1)
[2016-02-12] MEDS: CHOLECALCIFEROL (VIT D3) 5000 UNIT CAP PO SCH (08:49)
[2016-02-12] MEDS: ASPIRIN EC 81 MG TABEC PO SCH (08:49)
[2016-02-12] MEDS: METOPROLOL TARTRATE 25 MG TAB PO SCH ×2 (08:49→20:15)
[2016-02-12] MEDS: amLODIPine BESYLATE 5 MG TAB PO SCH (08:49)
[2016-02-12] MEDS: DULoxetine HCl DR 60 MG CAP PO SCH (08:49)
[2016-02-12] MEDS: FUROSEMIDE 20 MG TAB PO SCH (08:59)
[2016-02-12] MEDS ORDERED: LACTULOSE SYRUP 20 GM/30 ML CUP PO ONE (09:00)
[2016-02-12] MEDS ORDERED: DOCUSATE SODIUM 50 MG/SENNA 8.6 MG TAB PO SCH (09:00)
[2016-02-12] MEDS ORDERED: predniSONE 20 MG TAB PO SCH (09:00)
[2016-02-12] MEDS: ENOXAPARIN SODIUM 40 MG/0.4 ML SYRINGE SQ SCH (12:27)
[2016-02-12] MEDS: predniSONE 20 MG TAB PO SCH (12:28)
[2016-02-12] MEDS: IBUPROFEN 400 MG TAB PO PRN (13:45)
[2016-02-12] MEDS: VANCOMYCIN INJ 1,500 MG in SODIUM CHLORID 0.9% 500 ML INJ 500 ML IV SCH (13:46)
[2016-02-12] MEDS: PIPERACIL-TAZO 3.375 GM PREMIX 50 ML IV SCH ×3 (13:46→23:05)
--- NOTE | 2016-02-12 15:09 | HHI.FPPN ---
Subjective Remarks Ms. Davis was afebrile with stable vital signs overnight; patient had O2 saturation of 90-95% on 3-4L O2 via NC. Patient seen this morning; oriented to month and year. Patient seemingly confused briefly regarding time of day and made some statements seemingly suggestive of confusion; patient overall had markedly improved mental status relative to prior exam yesterday. Patient reports decreased cough/productive sputum. No reported shortness of breath. Per EMR, patient voiding frequently and stooling appropriately. Patient reports she is not able to tolerate mask. (Syed Garcia MD R2) Objective Vitals Vital Signs Date Time Temp Pulse Resp B/P Pulse Ox O2 Delivery O2 Flow Rate FiO2 02/12/16 11:20 96.0 73 20 151/66 96 02/12/16 09:39 96 Nasal Cannula 4.00 02/12/16 07:04 97.0 75 19 162/65 92 02/12/16 04:07 96.4 57 16 116/50 98 02/12/16 02:59 98 Nasal Cannula 4.00 02/12/16 00:12 96.8 67 16 130/75 95 02/11/16 20:39 92 Nasal Cannula 3.00 02/11/16 20:07 97.3 76 17 148/53 92 02/11/16 16:00 97.2 85 16 133/5 92 I/O 02/11/16 02/11/16 02/11/16 02/12/16 02/12/16 02/12/16 07:00 15:00 23:00 07:00 15:00 23:00 Intake Total 360 ml 660 ml 1302 ml 654 ml Output Total 360 ml Balance 0 ml 660 ml 1302 ml 654 ml Intake Oral 360 ml 660 ml 480 ml 360 ml IV Total 822 ml 294 ml Output Urine Total 360 ml # Voids 2 5 3 3 # Bowel Movements 1 0 0 (Syed Garcia MD R2) Result Diagram: 02/12/16 0655 02/12/16 0655 Imaging Last Impressions Chest X-Ray 02/11/16 0000 Signed Impressions: Service Date/Time: Thursday, February 11, 2016 11:38 - CONCLUSION: Grossly stable chest Oscar Fowler MD Ankle X-Ray 02/09/16 0000 Signed Impressions: Service Date/Time: Tuesday, February 09, 2016 11:02 - CONCLUSION: Interim left ankle ORIF as above. Anatomic alignment. No acute complication demonstrated. Oscar Paulino MD Head CT 02/07/16 0000 Signed Impressions: Service Date/Time: Sunday, February 07, 2016 12:20 - CONCLUSION: No significant change has occurred. Jasbir Holliday MD Objective Remarks GEN: WDWN elderly white female lying in bed asleep in NAD Skin: No visible rashes. Large seborrheic keratoses on face RESP: Normal rate on 3 L O2 via NC. No wheezing, decreased breath sounds, clear vs mild congestion CV: Regular rate and rhythm; no appreciated murmur. Grossly normal perfusion Abd: Normal bowel sounds; no pain to palpation MSK: Left ankle with splinting and ENEDELIA wrap up to below knee. NEURO: Awake, oriented to month and year. No agitation today. Grossly normal cranial nerves; grossly normal motor and sensory function (Syed Garcia MD R2) A/P Assessment and Plan 85 year old female with h/o COPD, HTN, [place] not requiring stents presenting with: Discharge Planning To PT at rehab pending clearance by ortho, normalization of electrolytes, treatment of UTI (Syed Garcia MD R2) Attending Attestation Patient seen and examined with the resident team. Case reviewed and discussed Agree with plan of care as discussed with me and documented in the resident note. (Analy Olmstead MD) Problem List: (1) Delirium due to conditions classified elsewhere Status: Acute Plan: Impression: Delirium on exam this morning; unclear etiology. Persistent leukocytosis during hospitalization. Cough productive of mucus during exam Discussed with Dr. Ray (patient's PCP)- patient has history of delirium during hospitalizations which has been controlled with a variety of antipsychotic medications previously CXR-cardiomegaly with L basilar effusion and consolidation. Diffuse interstitial prominence. Exam suggestive of congestive failure UA- negative x1 day Blood culturesx2 (02/10): negative x1 day Urine culture (02/06): fernando-sensitive E coli TSH 0.799, Ammonia 18 ABGs 02/10-02/11 with persistent CO2 elevation, hypoxia off of O2 (stable with prior admissions) --Will continue empiric antibiotic treatment while awaiting cultures: -Vancomycin -Zosyn --Haldol 1mg PRN for symptom control -Will check ammonia, TSH -Pulmonary consultation for assistance with hypercarbia (2) Nondisplaced trimalleolar fracture of left lower leg, initialencounter for closed fracture Status: Acute Plan: POD 3 from surgery of left ankle Secondary to mechanical fall. Noted on Left foot XR. No prodromal symptoms, neurologic & cardiopulmonary exam reassuring. No need to work up additional causes of fall at this time. CT head negative for intracranial bleed Orthopedics consulted, appreciate recommendations -PT eval & treat - recommending rehab inpatient --NWB -maintain splint -elevate -f/u with [facility] or [facility] in 2 weeks Pain Control: -Tylenol 1000 mg IV Q6H scheduled -Hold opiate PRNs for pain at this time since she had such a strong reaction to anesthesia; will re-order for pain as needed -Ibuprofen PRN (3) Chronic obstructive pulmonary disease Status: Chronic Plan: Impression: On 3L NC home oxygen. ABG demonstrative of hypoxia off of O2 and hypercarbia during hospitalization -DuoNebs every 4 hours as needed for shortness of breath -Empiric treatment for HCAP due to delirium -Prednisone 40mg daily -Would prefer that patient is on BIPAP for hypercarbia but she states she is unable to tolerate -Will consult Pulmonology regarding hypercapnia (4) Congestive heart failure Status: Chronic Plan: Impression: No CHF per patient and daughter, but on home lasix for " fluid around heart" and carries CHF diagnosis in EMR Mild crackles on exam, asymptomatic currently Repeat CXR / demonstrative of cardiomegaly with left basilar effusion and consolidation. Diffuse interstitial prominence suggestive of congestive failure BNP 489 (02/11) * Will give PRN Lasix IV * Continue home lasix 20mg daily * Continue to monitor * Will check BNP (5) UTI (urinary tract infection) Status: Resolved Plan: Asymptomatic, UA showing leuk esterase, many WBC UCx (02/06): fernando-sensitive E coli * Stop Rocephin 1 g IV daily and start broad spectrum antibiotics * Recheck UA due to delirium Antibiotic History: Rocephin 1gm IV x3 doses (6) Postherpetic neuralgia Status: Chronic Plan: Stable * Continue home gabapentin (7) HTN (hypertension) Status: Chronic Plan: Impression: BP intermittently hypertensive * Continue home metoprolol 12.5mg BID * Continue Amlodipine 5mg daily (8) FEN/PPX Status: Acute Plan: Fluids: None at this time Elecs: Monitor and replete as needed Nutrition: Diet regular basic DVT: Lovenox 40 mg SQ daily (Syed Garcia MD R2) Problem Qualifiers (1) Chronic obstructive pulmonary disease: Qualified Code: J44.9 - Chronic obstructive pulmonary disease, unspecified COPD type (2) Congestive heart failure: Qualified Code: I50.9 - Chronic congestive heart failure, unspecified congestive heart failure type (3) UTI (urinary tract infection): Qualified Code: N30.00 - Acute cystitis without hematuria (4) HTN (hypertension): Qualified Code: I10 - Essential hypertension Syed Garcia MD R2 Feb 12, 2016 15:09 Analy Olmstead MD Feb 13, 2016 10:45
[2016-02-12] MEDS: ATORVASTATIN 20 MG TAB PO SCH (20:15)
[2016-02-12] MEDS: HALOPERIDOL LACTATE 5 MG/ML AMP IM PRN (20:16)
[2016-02-12] MEDS: risperiDONE 0.25 MG TAB PO SCH (20:16)
[2016-02-13] VITALS (8 sets, daily range): BP systolic 130–166; BP diastolic 65–90; PULSE 62–89; RESP 16–22; TEMP 94.4–99.1; O2SAT 89–96
--- NOTE | 2016-02-13 05:22 | MB ---
cc: LINDSEYJAIR DATE OF CONSULTATION 02/12/2016 DATE OF 1930 REASON FOR CONSULTATION COPD and pneumonia. PRESENT ILLNESS This is an 85-year-old white female who has been admitted through the emergency room following a fall. The patient apparently tripped on her oxygen tubing and fell and had a trimalleolar fracture of her left ankle. This has been now placed in a cast and dressing. She had not blacked out but upon admission she was hypoxic and has been on O2 via nasal cannula at 2-3 liters. She denies any chest pain. Denies any significant cough, but is short of breath and has had some reflux symptoms and no nausea, vomiting or aspiration. PAST HISTORY The patient's past history has included - 1. History of a myocardial infarct. 2. History for COPD with asthma. 3. History of chronic postherpetic neuralgia of the flank. 4. History for hypertension. 5. Hyperlipidemia. PAST SURGICAL HISTORY The patient has had no surgery. ALLERGIES None listed. MED LIST 1. Symbicort 160/4.5 two puffs b.i.d. 2. Risperidone 0.25 mg at bedtime. 3. Gabapentin 400 mg t.i.d. 4. Metoprolol 25 mg daily. 5. Lasix 20 mg a day. 6. Duloxetine 60 mg at bedtime. 7. Aspirin 81 mg a day. 8. Alprazolam 0.25 mg p.r.n. 9. Nebulized albuterol/Atrovent solution three times daily. 10. Atorvastatin 20 mg at bedtime. 11. O2 at night 2 liters. HABITS The patient does not smoke but smoked for almost 50 years about a pack a day and quit 5 years ago. Does not drink any alcohol. REVIEW OF SYSTEMS The patient lost weight. She has dizziness, postnasal drip, cough and wheezing, epigastric distress and cramping. No nausea or vomiting, no urinary symptoms. No leg or calf muscle pains. She has some joint pains of her extremities and has a history of memory loss. No skin rash. No itching. PHYSICAL EXAMINATION General: This moderately overweight elderly lady is in bed. She has a cast on her left leg. She is anxious and mildly tachypneic on O2 at 2 liters. Vital Signs: Blood pressure 130/60, pulse is 68, respirations 20, temperature 98. W HEENT: Head normocephalic. Pupils are reactive and equal. Tongue moist. Nasal mucosa injected. Throat was mildly injected. Neck: Supple. No lymphadenopathy. No bruits or thyroid enlargement. Chest: Equal movements with scattered wheezes bilaterally, prolonged expirations and a few bibasilar crackles, more on the left. Heart: The heart sounds are irregular, S1 and S2 with no murmur. No S3. Abdomen: Soft and benign. No masses, no organomegaly or tenderness. Bowel sounds are active. Extremities: Mild varicosities and diminished pulses. Neurologic: Reflexes are 1+ with no gross motor deficits. Cranial nerves are grossly intact. Skin: No lesions are observed. IMAGING STUDIES Chest x-ray demonstrated mild consolidation in the left base and a small effusion. Potassium level is 2.7. CBC is unremarkable and white count is elevated at 14.4. IMPRESSION 1. COPD with chronic bronchitis and reactive airways. 2. UTI. 3. History of left ankle fracture. 4. CHF and cardiomyopathy. PLAN 1. The patient is already on O2 at 2 liters and a blood gas study will be obtained. 2. CT scan of the chest to be done to evaluate the lower lung infiltrates and the patient will also be sent for pulmonary function studies with bronchodilators. 3. We will continue with antibiotic coverage as ordered including Rocephin. 4. Nebulized DuoNeb solution started every 6 hours. 5. The patient will be encouraged to use an incentive spirometer every 2 hours. 6. Continue with diuretic therapy as well. I will review the CT scan and will evaluate her again this week. Thank you for this consultation. MD HELEN Ordoñez/WILBUR /11:11 PM /5:04 AM
[2016-02-13] MEDS: ACETAMINOPHEN 325 MG TAB PO SCH ×3 (05:36→16:13)
[2016-02-13] MEDS: PIPERACIL-TAZO 3.375 GM PREMIX 50 ML IV SCH ×3 (05:36→22:00)
[2016-02-13] MEDS: HALOPERIDOL LACTATE 5 MG/ML AMP IM PRN (06:12)
--- NOTE | 2016-02-13 06:49 | PD.ORT.PN ---
Subjective Subjective Remarks POD 4 s/p ORIF left ankle. patient doing better. less confused. states that she is having difficulty telling what time it is. still slightly confused Objective Vitals Vital Signs Date Time Temp Pulse Resp B/P Pulse Ox O2 Delivery O2 Flow Rate FiO2 02/13/16 04:00 98.8 89 19 130/77 94 02/13/16 00:00 98.7 68 22 166/65 94 02/12/16 21:36 98.7 68 22 166/65 89 02/12/16 20:46 Nasal Cannula 3.00 02/12/16 16:29 96 Nasal Cannula 3.00 02/12/16 16:00 96.0 74 22 165/72 94 02/12/16 11:20 96.0 73 20 151/66 96 02/12/16 09:39 96 Nasal Cannula 4.00 02/12/16 07:04 97.0 75 19 162/65 92 I/O 02/12/16 02/12/16 02/12/16 02/13/16 02/13/16 02/13/16 07:00 15:00 23:00 07:00 15:00 23:00 Intake Total 654 ml 670 ml 480 ml Balance 654 ml 670 ml 480 ml Intake Oral 360 ml 670 ml 480 ml IV Total 294 ml # Voids 3 8 1 # Bowel Movements 0 0 0 Result Diagram: 02/12/16 0655 02/12/16 0655 Objective Remarks LLE: +short leg splint. intact. NVI. clean and dry Assessment & Plan Assessment and Plan 1) Left Ankle Fx s/p ORIF - POD 4 -NWB -maintain splint -elevate -CM for rehab placement -f/u with [facility] or [facility] in 2 weeks -ortho clear for discharge to rehab -medicine to manage confusion Octavio Cadena Feb 13, 2016 06:49
[2016-02-13] MEDS: CHOLECALCIFEROL (VIT D3) 5000 UNIT CAP PO SCH (09:00)
[2016-02-13] MEDS: amLODIPine BESYLATE 5 MG TAB PO SCH (09:00)
[2016-02-13] MEDS: DULoxetine HCl DR 60 MG CAP PO SCH (09:00)
[2016-02-13] MEDS: FUROSEMIDE 20 MG TAB PO SCH (09:00)
[2016-02-13] MEDS: METOPROLOL TARTRATE 25 MG TAB PO SCH ×2 (09:00→21:57)
[2016-02-13] MEDS: predniSONE 20 MG TAB PO SCH (09:00)
[2016-02-13] MEDS: ASPIRIN EC 81 MG TABEC PO SCH (09:00)
[2016-02-13] MEDS ORDERED: HALOPERIDOL LACTATE 5 MG/ML AMP IM ONE (09:45)
[2016-02-13] MEDS: RESP: ALBUTEROL 2.5 MG/IPRATROPIUM 0.5 MG NEB (PRN) NEB (10:30)
[2016-02-13] MEDS: ENOXAPARIN SODIUM 40 MG/0.4 ML SYRINGE SQ SCH (11:00)
--- NOTE | 2016-02-13 11:12 | HHI.FPPN ---
Subjective Remarks No acute events overnight (lost IV access but it was reobtained). Still persistently delirious, having delusions that nurses aren't real nurses, that people are trying to kill her, occasionally will have visual hallucinations as well. Denies pain or trouble breathing. Wet the bed this morning. Objective Vitals Vital Signs Date Time Temp Pulse Resp B/P Pulse Ox O2 Delivery O2 Flow Rate FiO2 02/13/16 10:30 96 Nasal Cannula 4.00 02/13/16 09:15 Nasal Cannula 3.00 02/13/16 07:52 99.1 84 18 142/70 96 02/13/16 04:00 98.8 89 19 130/77 94 02/13/16 00:00 98.7 68 22 166/65 94 02/12/16 21:36 98.7 68 22 166/65 89 02/12/16 20:46 Nasal Cannula 3.00 02/12/16 16:29 96 Nasal Cannula 3.00 02/12/16 16:00 96.0 74 22 165/72 94 02/12/16 11:20 96.0 73 20 151/66 96 I/O 02/12/16 02/12/16 02/12/16 02/13/16 02/13/16 02/13/16 07:00 15:00 23:00 07:00 15:00 23:00 Intake Total 654 ml 670 ml 480 ml Balance 654 ml 670 ml 480 ml Intake Oral 360 ml 670 ml 480 ml IV Total 294 ml # Voids 3 8 1 # Bowel Movements 0 0 0 Result Diagram: 02/12/16 0655 02/12/16 0655 Imaging Last Impressions Chest X-Ray 02/11/16 0000 Signed Impressions: Service Date/Time: Thursday, February 11, 2016 11:38 - CONCLUSION: Grossly stable chest Oscar Fowler MD Ankle X-Ray 02/09/16 0000 Signed Impressions: Service Date/Time: Tuesday, February 09, 2016 11:02 - CONCLUSION: Interim left ankle ORIF as above. Anatomic alignment. No acute complication demonstrated. Oscar Paulino MD Head CT 02/07/16 0000 Signed Impressions: Service Date/Time: Sunday, February 07, 2016 12:20 - CONCLUSION: No significant change has occurred. Jasbir Holliday MD Objective Remarks Exam limited due to patient cooperation GEN: WDWN elderly white female lying on side, agitated but in NAD Skin: No visible rashes. Large seborrheic keratoses on face RESP: Normal rate on 3 L O2 via NC. CTAB, no wheezes or crackles. CV: Regular rate. Abd: Normal bowel sounds; no pain to palpation MSK: Left ankle with splinting and ENEDELIA wrap up to below knee. NEURO/PSYCH: Awake, refusing orientation questions. Quite agitated today, persistent delusion that people are trying to kill her and hospital staff are fakes. Grossly normal cranial nerves; grossly normal motor and sensory function. Medications and IVs Current Medications Medications (Trade) Dose Ordered Sig/Tony Route Start Time Stop Time Status Last Admin (NS Flush) 2 ml UNSCH PRN IVF 02/07/16 07:30 (Xanax) 0.25 mg Q6H PRN PO 02/07/16 11:00 Hold 02/08/16 15:40 (Ecotrin Ec) 81 mg DAILY PO 02/08/16 09:00 02/12/16 08:49 (Lipitor) 20 mg HS PO 02/07/16 21:00 02/12/16 20:15 (Cymbalta Dr) 60 mg DAILY PO 02/08/16 09:00 02/12/16 08:49 (Neurontin) 400 mg TID PO 02/07/16 13:00 Hold 02/11/16 09:00 (Lopressor) 12.5 mg BID PO 02/07/16 21:00 02/12/16 20:15 (risperDAL) 0.25 mg HS PO 02/07/16 21:00 02/12/16 20:16 (Pill Splitter) 1 ea UNSCH PRN OTHER 02/07/16 11:15 (Vitamin D3) 5,000 units DAILY PO 02/07/16 13:00 02/12/16 08:49 (Motrin) 400 mg Q6H PRN PO 02/07/16 13:30 02/12/16 13:45 (Narcan Inj) 0.4 mg UNSCH PRN IV 02/07/16 13:30 (Dulce-Colace) 2 tab BID PRN PO 02/07/16 13:30 (Norvasc) 5 mg DAILY PO 02/08/16 15:00 02/12/16 08:49 (Zofran Inj) 4 mg Q4H PRN IVP 02/09/16 11:30 (Lovenox Inj) 40 mg Q24H SQ 02/10/16 11:00 02/12/16 12:27 (Lasix) 20 mg DAILY PO 02/11/16 09:00 02/12/16 08:59 Lactulose 30 ml 30 ml Q6H PRN PO 02/11/16 10:00 Pharmacy Profile Note ml @ 0 mls/hr UNSCH XX 02/11/16 10:45 (Vancomycin Inj/ NS 500 ml Inj) 515 ml @ 250 mls/hr Q24H IV 02/11/16 13:00 02/12/16 13:46 Miscellaneous Information SPECIFIC LAB TO BE DRAWN:VANCOMYCIN TROUGH DATE TO... ONCE ONCE XX 02/14/16 12:45 02/14/16 12:46 (Tylenol) 650 mg Q6H PO 02/11/16 18:00 02/12/16 23:06 Prednisone 40 mg 40 mg DAILY PO 02/12/16 09:00 02/12/16 12:28 (Zosyn 3.375 Gm Premix) 50 ml @ 200 mls/hr Q6H IV 02/12/16 12:00 02/13/16 05:36 (Haldol Inj) 2 mg Q8H PRN IM 02/13/16 12:00 A/P Assessment and Plan 85 year old female with h/o COPD, HTN, [place] not requiring stents presenting with: Discharge Planning To PT at rehab pending clearance by ortho, normalization of electrolytes, treatment of UTI Problem List: (1) Delirium due to conditions classified elsewhere Status: Acute Plan: Impression: Delirium on exam this morning; unclear etiology. Persistent leukocytosis during hospitalization. Cough productive of mucus during exam Discussed with Dr. Ray (patient's PCP)- patient has history of delirium during hospitalizations which has been controlled with a variety of antipsychotic medications previously CXR-cardiomegaly with L basilar effusion and consolidation. Diffuse interstitial prominence. Exam suggestive of congestive failure UA- negative x1 day Blood culturesx2 (02/10): negative x1 day Urine culture (02/06): fernando-sensitive E coli TSH 0.799, Ammonia 18 ABGs 02/10-02/11 with persistent CO2 elevation, hypoxia off of O2 (stable with prior admissions) --Will continue empiric antibiotic treatment while awaiting cultures: -Vancomycin -Zosyn --Haldol 1mg PRN for symptom control -Pulmonary consultation for assistance with hypercarbia, appreciate their recommendations -Awaiting CT lungs (2) Nondisplaced trimalleolar fracture of left lower leg, initialencounter for closed fracture Status: Acute Plan: POD 4 from surgery of left ankle Secondary to mechanical fall. Noted on Left foot XR. No prodromal symptoms, neurologic & cardiopulmonary exam reassuring. No need to work up additional causes of fall at this time. CT head negative for intracranial bleed Orthopedics consulted, appreciate recommendations -PT eval & treat - recommending rehab inpatient --NWB -maintain splint -elevate -f/u with [facility] or [facility] in 2 weeks Pain Control: -Tylenol 1000 mg IV Q6H scheduled -Hold opiate PRNs for pain at this time since she had such a strong reaction to anesthesia; will re-order for pain as needed -Ibuprofen PRN (3) Chronic obstructive pulmonary disease Status: Chronic Plan: Impression: On 3L NC home oxygen. ABG demonstrative of hypoxia off of O2 and hypercarbia during hospitalization -DuoNebs every 4 hours as needed for shortness of breath -Empiric treatment for HCAP due to delirium -Prednisone 40mg daily -Would prefer that patient is on BIPAP for hypercarbia but she states she is unable to tolerate -Will consult Pulmonology regarding hypercapnia (4) Congestive heart failure Status: Chronic Plan: Impression: No CHF per patient and daughter, but on home lasix for " fluid around heart" and carries CHF diagnosis in EMR Mild crackles on exam, asymptomatic currently Repeat CXR 02/09 demonstrative of cardiomegaly with left basilar effusion and consolidation. Diffuse interstitial prominence suggestive of congestive failure BNP 489 (02/11) * Will give PRN Lasix IV * Continue home lasix 20mg daily * Continue to monitor * Will check BNP (5) UTI (urinary tract infection) Status: Resolved Plan: Asymptomatic, UA showing leuk esterase, many WBC UCx (02/06): fernando-sensitive E coli * S/p rocephin, continue broad spectrum antibiotics as above * Recheck UA due to delirium Antibiotic History: Rocephin 1gm IV x3 doses (6) Postherpetic neuralgia Status: Chronic Plan: Stable * Holding home gabapentin due to delirium (could confuse altered mental status picture) (7) HTN (hypertension) Status: Chronic Plan: Impression: BP intermittently hypertensive * Continue home metoprolol 12.5mg BID * Continue Amlodipine 5mg daily (8) FEN/PPX Status: Acute Plan: Fluids: None at this time Elecs: Monitor and replete as needed Nutrition: Diet regular basic DVT: Lovenox 40 mg SQ daily Problem Qualifiers (1) Chronic obstructive pulmonary disease: Qualified Code: J44.9 - Chronic obstructive pulmonary disease, unspecified COPD type (2) Congestive heart failure: Qualified Code: I50.9 - Chronic congestive heart failure, unspecified congestive heart failure type (3) UTI (urinary tract infection): Qualified Code: N30.00 - Acute cystitis without hematuria (4) HTN (hypertension): Qualified Code: I10 - Essential hypertension Abdiel Ayala MD R1 Feb 13, 2016 11:12 am
[2016-02-13] MEDS: IBUPROFEN 400 MG TAB PO PRN (11:19)
[2016-02-13] MEDS ORDERED: HALOPERIDOL LACTATE 5 MG/ML AMP IM PRN ×2 (12:00)
[2016-02-13] MEDS: HALOPERIDOL LACTATE 5 MG/ML AMP IM SCH ×3 (16:14→22:00)
[2016-02-13] MEDS: VANCOMYCIN INJ 1,500 MG in SODIUM CHLORID 0.9% 500 ML INJ 500 ML IV SCH (17:10)
[2016-02-13 18:10] LABS: AUTOMATED NEUTROPHIL # 11.4 TH/MM3 (1.8-7.7); BASOPHIL # 0.1 TH/MM3 (0-0.2); BASOPHIL % 0.6 % (0.0-2.0); EOSINOPHIL # 0.1 TH/MM3 (0-0.4); EOSINOPHIL % 0.4 % (0.0-4.0); HEMATOCRIT 33.6 % (35.0-46.0); HEMO FLAGS DIFF FINAL; LYMPH % 11.4 % (9.0-44.0); LYMPHOCYTE # 1.7 TH/MM3 (1.0-4.8); MEAN CELL VOLUME 89.1 FL (80.0-100.0); MEAN CORPUSCULAR HEMOGLOBIN 28.2 PG (27.0-34.0); MEAN CORPUSCULAR HGB CONC 31.6 % (32.0-36.0); MONO % 9.4 % (0.0-8.0); NEUT % 78.2 % (16.0-70.0); PLATELET COUNT 219 TH/MM3 (150-450); RED BLOOD COUNT 3.77 MIL/MM3 (4.00-5.30); RED CELL DISTRIBUTION WIDTH 14.2 % (11.6-17.2); WHITE BLOOD COUNT 14.6 TH/MM3 (4.0-11.0)
[2016-02-13 18:31] LABS: BICARBONATE 37.7 MEQ/L (21.0-32.0); MAGNESIUM 1.8 MG/DL (1.5-2.5)
--- NOTE | 2016-02-13 18:55 | HHI.PR ---
Subjective Remarks Confused and pulls at IV. On O2 at 2l. Sat 95. On Haldol and Xanax Objective Vital Signs Date Time Temp Pulse Resp B/P Pulse Ox O2 Delivery O2 Flow Rate FiO2 02/13/16 16:40 98.4 80 16 139/74 94 02/13/16 12:00 94.4 86 16 140/90 94 02/13/16 10:30 96 Nasal Cannula 4.00 02/13/16 09:15 Nasal Cannula 3.00 02/13/16 07:52 99.1 84 18 142/70 96 02/13/16 04:00 98.8 89 19 130/77 94 02/13/16 00:00 98.7 68 22 166/65 94 02/12/16 21:36 98.7 68 22 166/65 89 02/12/16 20:46 Nasal Cannula 3.00 I/O 02/12/16 02/12/16 02/12/16 02/13/16 02/13/16 02/13/16 07:00 15:00 23:00 07:00 15:00 23:00 Intake Total 654 ml 670 ml 480 ml 560 ml Balance 654 ml 670 ml 480 ml 560 ml Intake Oral 360 ml 670 ml 480 ml 560 ml IV Total 294 ml # Voids 3 8 1 4 # Bowel Movements 0 0 0 Result Diagram: 02/13/16175102/13/161751 Objective Remarks General: This moderately overweight elderly lady is in bed. She has a cast on her left leg. She is anxious and mildly tachypneic, Confused. HEENT: Head normocephalic. Pupils are reactive and equal. Tongue moist. Nasal mucosa dry. Throat was clear Neck: Supple. No lymphadenopathy. No bruits or thyroid enlargement. Chest: Equal movements with scattered wheezes bilaterally, prolonged expirations and a few bibasilar crackles, more on the left. Heart: The heart sounds are irregular, S1 and S2 with no murmur. No S3. Abdomen: Soft and benign. No masses, no organomegaly or tenderness. Bowel sounds are active. Extremities: diminished pulses.Left leg in cast. Neurologic: Reflexes are 1+ with no gross motor deficits. Cranial nerves are grossly intact. Skin: No lesions are observed. Assessment and Plan Assessment and Plan IMPRESSION 1. COPD with chronic bronchitis and reactive airways. 2. UTI. 3. History of left ankle fracture. 4. CHF and cardiomyopathy. 5. Possible Pneumonia , Bi basal. Plan : 1. Cont Antibiotics. 2. CT chest Today. 3. Nebs qid , duoneb. 4. O2 at 3 l. 5. Haldol and xanax for agitation. 6. Chest X ray in am 7. Taper prednisone to 20 mg daily. Dolores Gao MD Feb 13, 2016 18:55
[2016-02-13] MEDS ORDERED: MORPHINE SULFATE 4 MG/ML INJ IV PRN (19:15)
[2016-02-13] MEDS ORDERED: NITROGLYCERIN 0.4 MG SL 25 TABS/BTL SL PRN (19:15)
--- NOTE | 2016-02-13 19:20 | HHI.PR ---
Addendum to Inpatient Note Addendum Reason: Additional Documentation Additional Information Subjective Called about critical troponin of 0.90. Patient asymptomatic except for mild shortness of breath which had been stable for last couple days. On evaluation she denied CP, endorsed SOB but said it was better. Her only pain at present was her normal postherpetic neuralgia from previous shingles. Objective VS: T 98.4, HR 80, BP 140/84, O2 sats 94 on 4L nasal cannula GEN: WDWN elderly white female sitting up in bed in NAD RESP: CTAB; mild crackles which cleared on deep inspiration. No wheezes. CV: NRRR, normal S1/S2, no MRG NEURO: Awake, alert. 5/5 radiation protection technician strength bilaterally. Moves all extremities w/o difficulty except LLE with cast in place. EKG: Irregular with left axis deviation, T-wave inversions in V1-3, some PVCs, possible right bundle branch block Troponin I: 0.90 BMP: Alkalosis, hypokalemia (3.0) Assessment 85 year old female with h/o COPD, CHF at POD 3 from fixation of left ankle with acute troponin elevation and EKG changes concerning for possible RI Plan Contacted cardiology Give 325 mg aspirin PO Start therapeutic lovenox 80 mg SQ BID Trend troponin, EKG CT chest previously ordered is pending Repeat BMP in AM Administer oral potassium and replete magnesium through IV Abdiel Ayala MD R1 Feb 13, 2016 7:20 pm
[2016-02-13] MEDS ORDERED: IOHEXOL 350 MG/ML 10 ML VIAL (for RAD DIAG) IV ONE (19:26)
--- NOTE | 2016-02-13 19:52 | RADRPT ---
EXAM DATE/TIME: 02/13/2016 19:27 [facility] COMPARISON: CT THORAX W CONTRAST, August 05, 2010, 16:58. INDICATIONS : Shortness of breath; evaluate for lower lobe infiltrates. IV CONTRAST: 95 cc Omnipaque 350 (iohexol) IV RADIATION DOSE: 10.91 CTDIvol (mGy) MEDICAL HISTORY : Dementia. Hypertension. Chronic obstructive pulmonary disease.Cardiovascular disease. SURGICAL HISTORY : Tonsillectomy. ENCOUNTER: Initial ACUITY: 1 week PAIN SCALE: 4/10 LOCATION: chest TECHNIQUE: Volumetric scanning of the chest was performed. Using automated exposure control and adjustment of t he mA and/or kV according to patient size, radiation dose was kept as low as reasonably achievable to obtain optimal diagnostic quality images. FINDINGS: Comparisons 2011. There is some consolidation at the left lung base and trace left pleural fluid whic h is similar to the findings at 2011. Right lung demonstrate some scattered parenchymal scarring with out focal consolidation. There is mild emphysema. There is mild kyphosis. No acute findings in the up per abdomen. CONCLUSION: 1. Focal consolidation or atelectasis at the left lung base with small left effusion. The findings ar e similar to 2011 and may be chronic. Mild emphysema. No adenopathy. Mild to moderate kyphosis. Ganesh Feldman MD on February 13, 2016 at 19:48 Board Certified Radiologist. This report was verified electronically.
[2016-02-13] MEDS ORDERED: POTASSIUM CHLORIDE 10 MEQ CONTROLLED RELEASE TAB PO ONE ×2 (20:00→21:00)
[2016-02-13] MEDS ORDERED: ASPIRIN 325 MG TAB PO ONE (20:00)
[2016-02-13] MEDS: ENOXAPARIN SODIUM 80 MG/0.8 ML SYRINGE SQ SCH (20:12)
[2016-02-13] MEDS: MAGNESIUM SULFATE 1 GM PREMIX 100 ML IV SCH ×2 (20:14→21:59)
[2016-02-13 21:30] LABS: CKMB 5.1 NG/ML (0.5-3.6)
--- NOTE | 2016-02-13 21:32 | EKG ---
Date Performed: 02/13/2016 Time Performed: 19:08:16 PTAGE: 85 years EKG: Sinus rhythm WITH FREQUENT VENTRICULAR PREMATURE COMPLEXES RIGHT BUNDLE BRANCH BLOCK LEFT ANTERIOR FASCICULAR BLO CK Nonspecific ST and T wave abnormalities ABNORMAL ECG PREVIOUS TRACING : 02/08/2016 02.54 Occasional PVCs DOCTOR: Arley Olson Interpretating Date/Time 02/13/2016 21:30:13
[2016-02-13] MEDS: risperiDONE 0.25 MG TAB PO SCH (21:57)
[2016-02-13] MEDS: ATORVASTATIN 20 MG TAB PO SCH (21:57)
[2016-02-13] MEDS: PANTOPRAZOLE SOD 40 MG DELAYED RELEASE TAB PO SCH (21:58)
[2016-02-14] VITALS (8 sets, daily range): BP systolic 119–182; BP diastolic 60–79; PULSE 60–80; RESP 18–22; TEMP 96–98; O2SAT 91–99
[2016-02-14] MEDS: ACETAMINOPHEN 325 MG TAB PO SCH ×4 (00:03→16:25)
[2016-02-14 00:48] LABS: CKMB 3.9 NG/ML (0.5-3.6)
[2016-02-14] MEDS: PIPERACIL-TAZO 3.375 GM PREMIX 50 ML IV SCH ×4 (03:56→21:06)
[2016-02-14] MEDS: HALOPERIDOL LACTATE 5 MG/ML AMP IM SCH ×4 (04:00→21:06)
[2016-02-14 07:14] LABS: ALKALINE PHOSPHATASE 59 U/L (45-117); ALT (GPT) 24 U/L (10-53); ANION GAP 5 MEQ/L (5-15); AST (GOT) 27 U/L (15-37); BICARBONATE 37.1 MEQ/L (21.0-32.0); BLOOD UREA NITROGEN 17 MG/DL (7-18); CHLORIDE 104 MEQ/L (98-107); CREATINE KINASE 207 U/L (26-192); GLOMERULAR FILTRATION RATE 65 ML/MIN (>89); MAGNESIUM 2.5 MG/DL (1.5-2.5); POTASSIUM 3.9 MEQ/L (3.5-5.1); SODIUM (NA) 146 MEQ/L (136-145); TOTAL BILIRUBIN ADULT 0.4 MG/DL (0.2-1.0)
[2016-02-14 07:48] LABS: CKMB 3.8 NG/ML (0.5-3.6)
[2016-02-14] MEDS: CHOLECALCIFEROL (VIT D3) 5000 UNIT CAP PO SCH (08:04)
[2016-02-14] MEDS: predniSONE 20 MG TAB PO SCH ×3 (08:04→09:36)
[2016-02-14] MEDS: FUROSEMIDE 20 MG TAB PO SCH (08:05)
[2016-02-14] MEDS: METOPROLOL TARTRATE 25 MG TAB PO SCH ×2 (08:05→21:05)
[2016-02-14] MEDS: ASPIRIN EC 81 MG TABEC PO SCH (08:05)
[2016-02-14] MEDS: ENOXAPARIN SODIUM 80 MG/0.8 ML SYRINGE SQ SCH ×2 (08:05→21:06)
[2016-02-14] MEDS: DULoxetine HCl DR 60 MG CAP PO SCH (08:05)
[2016-02-14] MEDS: PANTOPRAZOLE SOD 40 MG DELAYED RELEASE TAB PO SCH (08:05)
[2016-02-14] MEDS: amLODIPine BESYLATE 5 MG TAB PO SCH (08:05)
[2016-02-14] MEDS: RESP: ALBUTEROL 2.5 MG/IPRATROPIUM 0.5 MG NEB (PRN) NEB (08:35)
[2016-02-14 10:55] LABS: AUTOMATED NEUTROPHIL # 10.1 TH/MM3 (1.8-7.7); BASOPHIL # 0.1 TH/MM3 (0-0.2); BASOPHIL % 0.6 % (0.0-2.0); EOSINOPHIL # 0.1 TH/MM3 (0-0.4); EOSINOPHIL % 0.6 % (0.0-4.0); HEMATOCRIT 35.5 % (35.0-46.0); HEMO FLAGS DIFF FINAL; LYMPH % 9.9 % (9.0-44.0); LYMPHOCYTE # 1.2 TH/MM3 (1.0-4.8); MEAN CELL VOLUME 89.5 FL (80.0-100.0); MEAN CORPUSCULAR HEMOGLOBIN 28.6 PG (27.0-34.0); MONO % 2.9 % (0.0-8.0); PLATELET COUNT 251 TH/MM3 (150-450); RED BLOOD COUNT 3.97 MIL/MM3 (4.00-5.30); RED CELL DISTRIBUTION WIDTH 14.2 % (11.6-17.2); WHITE BLOOD COUNT 11.8 TH/MM3 (4.0-11.0)
--- NOTE | 2016-02-14 11:03 | RADRPT ---
EXAM DATE/TIME: 02/14/2016 10:54 [facility] COMPARISON: CHEST SINGLE AP, February 11, 2016, 11:38. INDICATIONS : Shortness of breath. MEDICAL HISTORY : Chronic obstructive pulmonary disease. Hypertension SURGICAL HISTORY : None. ENCOUNTER: Subsequent ACUITY: 1 week PAIN SCORE: Non-responsive. LOCATION: Bilateral chest FINDINGS: The heart is enlarged. There is mild gaseous edema present. There are increasing his life changes l eft base. The portion of the bony skeleton visualized is unremarkable. CONCLUSION: Mild interstitial edema with increasing consolidative changes left base. Alton Moody MD FACR on February 14, 2016 at 11:00 Board Certified Radiologist. This report was verified electronically.
[2016-02-14 11:20] LABS: BICARBONATE 39.1 MEQ/L (21.0-32.0)
[2016-02-14] MEDS: VANCOMYCIN INJ 1,500 MG in SODIUM CHLORID 0.9% 500 ML INJ 500 ML IV SCH (11:24)
--- NOTE | 2016-02-14 11:26 | EKG ---
Date Performed: 02/14/2016 Time Performed: 08:20:20 PTAGE: 85 years EKG: Sinus rhythm WITH SINUS ARRHYTHMIA RIGHT BUNDLE BRANCH BLOCK LEFT ANTERIOR FASCICULAR BLOCK ABNORMAL ECG PREVIOUS TRACING : 02/13/2016 19.08 Since previous tracing, no significant change noted DOCTOR: Arley Olson Interpretating Date/Time 02/14/2016 11:23:54
[2016-02-14 11:43] LABS: CKMB 4.7 NG/ML (0.5-3.6)
[2016-02-14] MEDS ORDERED: PHARMACY ORDERED LAB XX ONE (12:45)
--- NOTE | 2016-02-14 13:48 | HHI.FPPN ---
Subjective Remarks Ms. Davis was afebrile overnight; intermittent HTN to max SBP 161 overnight. Patient appeared to normal mental status and answered questions appropriately at this exam. Patient reported some left sided chest wall pain which she states is chronic and secondary to her shingles. Patient eating breakfast normally. Patient states that her daughters visited her last night. Patient voiding normally; no bowel movements for last several days. (Syed Garcia MD R2 ) Objective Vitals Vital Signs Date Time Temp Pulse Resp B/P Pulse Ox O2 Delivery O2 Flow Rate FiO2 02/14/16 11:27 96.2 60 19 138/70 97 02/14/16 08:35 91 Nasal Cannula 3.00 02/14/16 07:57 96.9 78 19 161/76 96 02/14/16 04:00 96.0 74 22 156/75 93 02/14/16 00:00 98.0 69 18 119/60 97 02/13/16 21:19 91 Nasal Cannula 4.00 02/13/16 20:15 96.1 62 22 145/80 92 02/13/16 16:40 98.4 80 16 139/74 94 I/O 02/13/16 02/13/16 02/13/16 02/14/16 02/14/16 02/14/16 07:00 15:00 23:00 07:00 15:00 23:00 Intake Total 560 ml 240 ml 120 ml Balance 560 ml 240 ml 120 ml Intake Oral 560 ml 240 ml 120 ml # Voids 4 1 2 # Bowel Movements 0 0 (Syed Garcia MD R2) Result Diagram: 02/14/16 1040 02/14/16 1040 Imaging Last Impressions Chest X-Ray 02/14/16 0820 Signed Impressions: Service Date/Time: Sunday, February 14, 2016 10:54 - CONCLUSION: Mild interstitial edema with increasing consolidative changes left base. Alton Moody MD FACR Chest CT 02/13/16 0000 Signed Impressions: Service Date/Time: Saturday, February 13, 2016 19:27 - CONCLUSION: 1. Focal consolidation or atelectasis at the left lung base with small left effusion. The findings are similar to 2011 and may be chronic. Mild emphysema. No adenopathy. Mild to moderate kyphosis. Ganesh Feldman MD Ankle X-Ray 02/09/16 0000 Signed Impressions: Service Date/Time: Tuesday, February 09, 2016 11:02 - CONCLUSION: Interim left ankle ORIF as above. Anatomic alignment. No acute complication demonstrated. Oscar Paulino MD Head CT 02/07/16 0000 Signed Impressions: Service Date/Time: Sunday, February 07, 2016 12:20 - CONCLUSION: No significant change has occurred. Jasbir Holliday MD Objective Remarks GEN: WDWN elderly white female lying on side, agitated but in NAD Skin: No visible rashes. Large seborrheic keratoses on face RESP: Normal rate on 3 L O2 via NC. CTAB, no wheezes or crackles. CV: Regular rate. Abd: Normal bowel sounds; no pain to palpation MSK: Left ankle with splinting and ENEDELIA wrap up to below knee. NEURO/PSYCH: Awake, seemingly oriented. Grossly normal cranial nerves; grossly normal motor and sensory function. (Syed Garcia MD R2) A/P Assessment and Plan 85 year old female with h/o COPD, HTN, ND not requiring stents presenting with: Discharge Planning To PT at rehab pending clearance by ortho, normalization of electrolytes, treatment of UTI (Syed Garcia MD R2) Attending Attestation Patient seen and examined with Dr. Garcia. Case reviewed and discussed Agree with plan of care as discussed with me and documented in the resident note. (Analy Olmstead MD) Problem List: (1) Delirium due to conditions classified elsewhere Status: Resolved Plan: Impression: Delirium history during hospitalizations. Intermittently delirious over past several days; unclear etiology. Leukocytosis during hospitalization. Cough productive of mucus during exam Discussed with Dr. Ray (patient's PCP)- patient has history of delirium during hospitalizations which has been controlled with a variety of antipsychotic medications previously CXR-cardiomegaly with L basilar effusion and consolidation. Diffuse interstitial prominence. Exam suggestive of congestive failure Blood culturesx2 (02/10): negative x3 days Urine culture (02/06): fernando-sensitive E coli TSH 0.799, Ammonia 18 ABGs 02/10-02/11 with persistent CO2 elevation, hypoxia off of O2 (stable with prior admissions) --Haldol 1mg PRN for symptom control (2) Troponin level elevated Status: Acute Plan: Impression: Patient with ventricular arrhythmia on telemetry at 0230 02/12 ; ventricular in nature; later appeared to be bigeminy. Patient also intermittently delirious. Troponin drawn due to arrhythmia; found to be 0.90. Stable SOB; no active chest pain. EKG concerning for possible anterolateral ischemia -Discussed with Cardiology -Cardiology consulted -Echo -Aspirin - Therapeutic lovenox 80 mg SQ BID -Trend troponin, EKG -EKGs suggestive of possible anterolateral ischemia -Troponins stable at ~0.85-0.9 -Obtain Echo -Electrolyte replacement (3) Nondisplaced trimalleolar fracture of left lower leg, initialencounter for closed fracture Status: Acute Plan: POD 5 from surgery of left ankle Secondary to mechanical fall. Noted on Left foot XR. No prodromal symptoms, neurologic & cardiopulmonary exam reassuring. No need to work up additional causes of fall at this time. CT head negative for intracranial bleed Orthopedics consulted, appreciate recommendations -PT eval & treat - recommending rehab inpatient --NWB -maintain splint -elevate -f/u with [facility] or REG in 2 weeks Pain Control: -Tylenol 1000 mg IV Q6H scheduled -Hold opiate PRNs for pain at this time since she had such a strong reaction to anesthesia; will re-order for pain as needed -Ibuprofen PRN (4) Chronic obstructive pulmonary disease Status: Chronic Plan: Impression: On 3L NC home oxygen. ABG demonstrative of hypoxia off of O2 and hypercarbia during hospitalization Chest CT 02/12 stable: Focal consolidation or atelectasis at the left lung base with small left effusion. The findings are similar to 2011 and may be chronic. Mild emphysema. No adenopathy. Mild to moderate kyphosis. -Pulmonology consulted -Continue broad spectrum antibiotics for possible pneumonia/delirium -DuoNebs every 4 hours as needed for shortness of breath -Prednisone 20mg daily (5) Congestive heart failure Status: Chronic Plan: Impression: No CHF per patient and daughter, but on home lasix for " fluid around heart" and carries CHF diagnosis in EMR Mild crackles on exam, asymptomatic currently Repeat CXR 02/09 demonstrative of cardiomegaly with left basilar effusion and consolidation. Diffuse interstitial prominence suggestive of congestive failure BNP 489 (02/11) * Will give PRN Lasix IV * Continue home lasix 20mg daily * Continue to monitor * Will check BNP -504 today (02/13) * Will repeat echo per Cardiology (6) UTI (urinary tract infection) Status: Resolved Plan: Asymptomatic, UA showing leuk esterase, many WBC UCx (02/06): fernando-sensitive E coli * S/p rocephin, continue broad spectrum antibiotics as above * Recheck UA due to delirium Antibiotic History: Rocephin 1gm IV x3 doses (7) Postherpetic neuralgia Status: Chronic Plan: Stable * Resume home gabapentin due to delirium (could confuse altered mental status picture) (8) HTN (hypertension) Status: Chronic Plan: Impression: BP intermittently hypertensive * Continue home metoprolol 12.5mg BID * Continue Amlodipine 5mg daily (9) FEN/PPX Status: Acute Plan: Fluids: None at this time Elecs: Monitor and replete as needed Nutrition: Diet regular basic DVT: on therapeutic heparin for presumed NSTEMI (Syed Garcia MD R2) Problem Qualifiers (1) Chronic obstructive pulmonary disease: Qualified Code: J44.9 - Chronic obstructive pulmonary disease, unspecified COPD type (2) Congestive heart failure: Qualified Code: I50.32 - Chronic diastolic congestive heart failure (3) UTI (urinary tract infection): Qualified Code: N30.00 - Acute cystitis without hematuria (4) HTN (hypertension): Qualified Code: I10 - Essential hypertension Syed Garcia MD R2 Feb 14, 2016 13:48 Analy Olmstead MD Feb 23, 2016 09:59
[2016-02-14] MEDS ORDERED: FUROSEMIDE 20 MG/2 ML VIAL IV PUSH ONE (14:00)
[2016-02-14 16:07] LABS: BACTERIA, URINE RARE /hpf; BLOOD, URINE TRACE (NEG); COMMENT (UR) CULT NOT INDICATED; CULTURE IF INDICATED CULT NOT INDICATED; GLUCOSE,URINE NEG (NEG); KETONE, URINE NEG (NEG); MUCUS URINE FEW /lpf (OCC); NITRITE,URINE NEG (NEG); SQUAMOUS EPITHELIAL CELL URINE 1 /hpf (0-5); URINE COLOR LIGHT-YELLOW (YELLW/STRAW)
[2016-02-14] MEDS ORDERED: POLYETHYLENE GLYCOL 17 GM PKG PO PRN (16:30)
--- NOTE | 2016-02-14 16:32 | MB ---
cc: ARLEY VELASQUEZ DO DATE OF CONSULTATION: 02/14/2016. REASON FOR CONSULTATION: Elevation of troponins. HISTORY OF PRESENT ILLNESS: Solange Davis is a pleasant 85-year-old female who originally presented to the [facility] on February 07, 2016 due to a fall. She was found to have a trimalleolar fracture of the left lower extremity. She underwent open reduction internal fixation of the left ankle fracture on February 09, 2016. Since then, she has been on the medical floor of the hospital recovering. During her recovery, she has been in and out of dementia with some delirium. Last night she was noted to have a run of nonsustained ventricular tachycardia with occasional bigeminy afterwards. Her baseline right bundle branch block and PVCs included that were left bundle branch block in nature. During this, she has been totally asymptomatic. She has been short of breath during her hospital stay but this is somewhat chronic for her and has not changed recently. EKG was checked, which showed no significant change from baseline. She was noted have a troponin of 0.9, which has since decreased to 0.83. We are asked to see the patient due to nonsustained ventricular tachycardia, bigeminy and [id number] myocardial infarction. PAST MEDICAL HISTORY: 1. Presumed coronary artery disease with previous [id number] myocardial infarction (November of 2015) 2. COPD with asthma. 3. Chronic post-herpetic neuralgia of the flank. 4. Hypertension. 5. Hyperlipidemia. PAST SURGICAL HISTORY: Open reduction internal fixation of the left ankle (February 09, 2016). ALLERGIES: NO KNOWN DRUG ALLERGIES. HOME MEDICATIONS: 1. Symbicort two puffs every 12 hours. 2. Lactulose 30 milligrams as needed. 3. Gabapentin 400 milligrams three times a day. 4. Fluoxetine 60 milligrams daily. 5. Risperidone 0.25 milligrams every night. 6. Xanax 0.25 milligrams every 6 hours as needed. 7. DuoNeb four times a day. 8. Metoprolol tartrate 12.5 milligrams twice a day. 9. Lipitor 20 milligrams every night. 10. Lasix 20 milligrams daily. 11. Aspirin 81 milligrams daily. 12. [place] every four hours as needed. 13. Oxygen two liters at home. 14. Potassium 20 milliequivalents daily. 15. Macrobid 100 milligrams twice a day. FAMILY HISTORY: Denies premature coronary artery disease or sudden cardiac within the family. SOCIAL HISTORY: Previously smoked half-a-pack a day for approximately 50 years, quitting 70 years ago. Does not drink alcohol. Denies drug abuse. Currently lives in an assisted living facility. REVIEW OF SYSTEMS Fourteen systems were reviewed including osteopathic with pertinent positives and negatives as above; otherwise negative. PHYSICAL EXAMINATION VITAL SIGNS: Temperature 96.2, heart rate 60, blood pressure 138/70, respirations 19, pulse oximetry 97% on four liters. GENERAL: In general, the patient appears well and in no acute distress. Awake, alert and oriented. HEENT: Extraocular muscles intact. Mucous membranes moist. NECK: The neck is supple. No JVD at 45 degrees. No carotid bruits heard bilaterally. Carotid upstroke is brisk in nature. HEART: Regular rate and rhythm. Positive first and second heart sounds with no noted murmurs, gallops or rubs. PMI is difficult to locate. LUNGS: Decreased breath sounds bilaterally with scattered wheezes bilaterally. ABDOMEN: The abdomen is soft, nontender and nondistended. No organomegaly noted. EXTREMITIES: No clubbing or cyanosis. Left lower extremity currently in a cast. NEUROLOGIC: No focal deficits. SKIN: Warm, dry and intact. OSTEOPATHIC: Osteopathically, mild lordosis, no kyphoscoliosis or paraspinal tender points. LABORATORY WORK: Hemoglobin 11.4, hematocrit 35.5, platelets 251,000. Potassium 4.0, BUN 17, creatinine 0.94. Troponin 0.9 decreasing to 0.83. BNP 504. EKGS: Electrocardiogram (February 14, 2016 at 08:20): Sinus rhythm with sinus arrhythmia, right bundle branch block, left anterior fascicular block. No significant change from previous. IMPRESSION: 1. Mechanical fall leading to left trimalleolar fracture. 2. Open reduction internal fixation of left ankle (February 09, 2016). 3. Elevated troponin, unsure if type 1 versus type 2. 4. Two short runs of nonsustained ventricular tachycardia (three and four beats) with some occasional PVCs. 5. Previous NSTEMI of unknown cause (November,). 6. Significant COPD / asthma. 7. Electrolyte disturbance. RECOMMENDATIONS: 1. I spoke to Solange and her family extensively about her current situation. Solange states that she had no chest pain and has chronic shortness of breath. She would not want to undergo cardiac catheterization and wants to continue with medical management. Her family is in total agreement with their mother due to her age and comorbidities. 2. I explained the risk of this, and they understand. 3. Concern for significant coronary artery disease with a right bundle branch pattern and PVCs / nonsustained ventricular tachycardia with a left bundle branch pattern possibly surgical CAD in nature. 4. Agree with placing Solange on aspirin, statin, Lovenox and beta-timmy therapy. 5. Will have to watch her heart rhythm on a higher dose of Lopressor 25 milligrams twice a day. 6. We will continue with Lasix daily. 7. Would continue with repleting her potassium and magnesium as yesterday her magnesium was 1.8 and potassium was 3.0 which can lead to further ectopy. 8. Will check a 2-D echo to look at her overall left ventricular function, cardiac structure, and valvulopathies. Thank you for allowing me to see Solange Davis. If there are any questions, please do not hesitate to call. Arley Velasquez DO VGNeptali/CRISTIAN /12:11 PM /4:13 PM [facility]
[2016-02-14] MEDS ORDERED: PANTOPRAZOLE SOD 40 MG DELAYED RELEASE TAB PO SCH (17:00)
[2016-02-14] MEDS: RESP: IPRATROPIUM 0.5 MG/2.5 ML NEB NEB SCH (20:37)
[2016-02-14] MEDS: GABAPENTIN 400 MG CAP PO SCH (21:05)
[2016-02-14] MEDS: DOCUSATE SODIUM 50 MG/SENNA 8.6 MG TAB PO SCH (21:05)
[2016-02-14] MEDS: ATORVASTATIN 20 MG TAB PO SCH (21:05)
[2016-02-14] MEDS: risperiDONE 0.25 MG TAB PO SCH (21:06)
[2016-02-15] VITALS (9 sets, daily range): BP systolic 98–142; BP diastolic 42–64; PULSE 62–74; RESP 18–19; TEMP 95.4–98.2; O2SAT 92–98
[2016-02-15] MEDS: PIPERACIL-TAZO 3.375 GM PREMIX 50 ML IV SCH ×2 (04:30→07:54)
[2016-02-15] MEDS: HALOPERIDOL LACTATE 5 MG/ML AMP IM SCH ×4 (04:35→20:32)
[2016-02-15] MEDS: ACETAMINOPHEN 325 MG TAB PO SCH ×4 (06:00→16:37)
[2016-02-15] MEDS: DOCUSATE SODIUM 50 MG/SENNA 8.6 MG TAB PO SCH ×2 (07:53→20:32)
[2016-02-15] MEDS: PANTOPRAZOLE SOD 40 MG DELAYED RELEASE TAB PO SCH (07:53)
[2016-02-15] MEDS: ASPIRIN EC 81 MG TABEC PO SCH (07:53)
[2016-02-15] MEDS: DULoxetine HCl DR 60 MG CAP PO SCH (07:53)
[2016-02-15] MEDS: predniSONE 20 MG TAB PO SCH (07:53)
[2016-02-15] MEDS: ENOXAPARIN SODIUM 80 MG/0.8 ML SYRINGE SQ SCH ×2 (07:53→20:32)
[2016-02-15] MEDS: GABAPENTIN 400 MG CAP PO SCH ×2 (07:53→20:31)
[2016-02-15] MEDS: CHOLECALCIFEROL (VIT D3) 5000 UNIT CAP PO SCH (07:53)
[2016-02-15] MEDS: METOPROLOL TARTRATE 25 MG TAB PO SCH ×2 (07:54→20:31)
[2016-02-15] MEDS: FUROSEMIDE 20 MG TAB PO SCH (07:54)
--- NOTE | 2016-02-15 07:59 | PD.CARD.PN ---
Subjective Subjective Remarks No chest pain, shortness of breath somewhat better Objective Medications Current Medications Medications (Trade) Dose Ordered Sig/Tony Route Start Time Stop Time Status Last Admin (Xanax) 0.25 mg Q6H PRN PO 02/07/16 11:00 Hold 02/08/16 15:40 (Ecotrin Ec) 81 mg DAILY PO 02/08/16 09:00 02/14/16 08:05 (Lipitor) 20 mg HS PO 02/07/16 21:00 02/14/16 21:05 (Cymbalta Dr) 60 mg DAILY PO 02/08/16 09:00 02/14/16 08:05 (risperDAL) 0.25 mg HS PO 02/07/16 21:00 02/14/16 21:06 (Pill Splitter) 1 ea UNSCH PRN OTHER 02/07/16 11:15 (Vitamin D3) 5,000 units DAILY PO 02/07/16 13:00 02/14/16 08:04 (Motrin) 400 mg Q6H PRN PO 02/07/16 13:30 02/12/16 13:45 (Narcan Inj) 0.4 mg UNSCH PRN IV 02/07/16 13:30 (Zofran Inj) 4 mg Q4H PRN IVP 02/09/16 11:30 Furosemide 20 mg 20 mg DAILY PO 02/11/16 09:00 02/14/16 08:05 Pharmacy Profile Note ml @ 0 mls/hr UNSCH XX 02/11/16 10:45 (Vancomycin Inj/ NS 500 ml Inj) 515 ml @ 250 mls/hr Q24H IV 02/11/16 13:00 02/14/16 11:24 (Tylenol) 650 mg Q6H PO 02/11/16 18:00 02/14/16 16:25 (Haldol Inj) 1 mg Q6H IM 02/13/16 16:00 02/15/16 04:35 Metoprolol Tartrate 25 mg 25 mg BID PO 02/13/16 21:00 02/14/16 21:05 (Zosyn 3.375 Gm Premix) 50 ml @ 200 mls/hr Q6H IV 02/13/16 22:00 02/15/16 04:30 (Lovenox Inj) 80 mg Q12H SQ 02/13/16 20:00 02/14/16 21:06 (Nitrostat Sl) 0.4 mg Q5M PRN SL 02/13/16 19:15 (Morphine Inj) 2 mg Q30M PRN IV 02/13/16 19:15 (Protonix) 40 mg DAILY PO 02/13/16 21:15 02/14/16 08:05 (Neurontin) 400 mg BID PO 02/14/16 21:00 02/14/16 21:05 (Deltasone) 10 mg DAILY PO 02/15/16 09:00 Miscellaneous Information SPECIFIC LAB TO BE DRAWN:[facility]... ONCE ONCE XX 02/15/16 12:45 02/15/16 12:46 (Norvasc) 10 mg DAILY PO 02/15/16 09:00 (Dulce-Colace) 2 tab BID PO 02/14/16 21:00 02/14/16 21:05 (Miralax) 17 gm DAILY PRN PO 02/14/16 16:30 Vital Signs / I&O Vital Signs Date Time Temp Pulse Resp B/P Pulse Ox O2 Delivery O2 Flow Rate FiO2 02/15/16 06:43 66 02/15/16 04:15 97.6 67 19 119/59 96 02/15/16 00:00 98.2 67 19 142/64 98 02/14/16 20:40 99 Nasal Cannula 3.00 02/14/16 20:15 96.4 80 20 182/79 92 02/14/16 14:44 96.6 69 19 168/72 96 02/14/16 11:27 96.2 60 19 138/70 97 02/14/16 08:35 91 Nasal Cannula 3.00 02/14/16 07:57 96.9 78 19 161/76 96 I/O 02/14/16 02/14/16 02/14/16 02/15/16 02/15/16 02/15/16 07:00 15:00 23:00 07:00 15:00 23:00 Intake Total 120 ml 600 ml 2013 ml 120 ml Balance 120 ml 600 ml 2013 ml 120 ml Intake Oral 120 ml 600 ml 480 ml 120 ml IV Total 1534 ml # Voids 2 7 7 0 # Bowel Movements 0 6 1 0 Physical Exam GENERAL: NAD, AAO SKIN: Warm and dry. HEAD: Atraumatic. Normocephalic. EYES: Pupils equal and round. No scleral icterus. No injection or drainage. ENT: No nasal bleeding or discharge. Mucous membranes pink and moist. NECK: Trachea midline. No JVD. CARDIOVASCULAR: Normal sinus rhythm RESPIRATORY: No accessory muscle use. Decreased breath sounds bilaterally GASTROINTESTINAL: Abdomen soft, non-tender, nondistended. Hepatic and splenic margins not palpable. MUSCULOSKELETAL: Left ankle in cast. NEUROLOGICAL: Awake and alert. No obvious cranial nerve deficits. Motor grossly within normal limits. Five out of 5 muscle strength in the arms and legs. Normal speech. PSYCHIATRIC: Appropriate mood and affect; insight and judgment normal. Laboratory Laboratory Tests Test 02/14/16 02/14/16 10:40 15:25 White Blood Count 11.8 TH/MM3 Red Blood Count 3.97 MIL/MM3 Hemoglobin 11.4 GM/DL Hematocrit 35.5 % Mean Corpuscular Volume 89.5 FL Mean Corpuscular Hemoglobin 28.6 PG Mean Corpuscular Hemoglobin 32.0 % Concent Red Cell Distribution Width 14.2 % Platelet Count 251 TH/MM3 Mean Platelet Volume 9.6 FL Neutrophils (%) (Auto) 86.0 % Lymphocytes (%) (Auto) 9.9 % Monocytes (%) (Auto) 2.9 % Eosinophils (%) (Auto) 0.6 % Basophils (%) (Auto) 0.6 % Neutrophils # (Auto) 10.1 TH/MM3 Lymphocytes # (Auto) 1.2 TH/MM3 Monocytes # (Auto) 0.3 TH/MM3 Eosinophils # (Auto) 0.1 TH/MM3 Basophils # (Auto) 0.1 TH/MM3 CBC Comment DIFF FINAL Differential Comment Sodium Level 144 MEQ/L Potassium Level 4.0 MEQ/L Chloride Level 100 MEQ/L Carbon Dioxide Level 39.1 MEQ/L Anion Gap 5 MEQ/L Blood Urea Nitrogen 17 MG/DL Creatinine 0.94 MG/DL Estimat Glomerular Filtration 57 ML/MIN Rate Random Glucose 148 MG/DL Calcium Level 9.4 MG/DL Total Creatine Kinase 256 U/L Creatine Kinase MB 4.7 NG/ML Creatine Kinase MB % 1.8 % Troponin I 0.83 NG/ML B-Type Natriuretic Peptide 504 PG/ML Random Vancomycin Level 21.6 COMMENT Urine Color LIGHT-YELLOW Urine Turbidity CLEAR Urine pH 7.0 Urine Specific [place] 1.009 Urine Protein NEG mg/dL Urine Glucose (UA) NEG mg/dL Urine Ketones NEG mg/dL Urine Occult Blood TRACE Urine Nitrite NEG Urine Bilirubin NEG Urine Urobilinogen LESS THAN 2.0 MG/DL Urine Leukocyte Esterase NEG Urine RBC 1 /hpf Urine WBC 1 /hpf Urine Squamous Epithelial 1 /hpf Cells Urine Bacteria RARE /hpf Urine Mucus FEW /lpf Microscopic Urinalysis Comment CULT NOT INDICATED Assessment and Plan Problem List: (1) Troponin level elevated (2) UTI (urinary tract infection) (3) Nondisplaced trimalleolar fracture of left lower leg, initialencounter for closed fracture (4) HTN (hypertension) (5) Chronic obstructive pulmonary disease Assessment and Plan 1) Elevated troponin, unsure if Type 1 vs 2, had a long talk with the patient and her family yesterday, they would like to continue medical management and not pursue more aggressive measures, they understand the risk involved 2) 2D echo pending 3) Mildly bradycardiac, would continue BB as is for now, if significant bradycardia can change to Lopressor 12.5mg q 8 hours 4) One episode of tachycardia last night, probably NSVT, patient asymptomatic at the time Problem Qualifiers (1) UTI (urinary tract infection): Qualified Code: N30.00 - Acute cystitis without hematuria (2) HTN (hypertension): Qualified Code: I10 - Essential hypertension (3) Chronic obstructive pulmonary disease: Qualified Code: J44.9 - Chronic obstructive pulmonary disease, unspecified COPD type Arley Olson DO Feb 15, 2016 07:59
[2016-02-15 08:40] LABS: BICARBONATE 41.3 MEQ/L (21.0-32.0); POTASSIUM 3.4 MEQ/L (3.5-5.1)
[2016-02-15] MEDS: RESP: IPRATROPIUM 0.5 MG/2.5 ML NEB NEB SCH ×2 (08:41→19:51)
--- NOTE | 2016-02-15 08:48 | HHI.FPPN ---
Subjective Remarks No acute events overnight. Afebrile, BPs running 120s-180s, hovering closer to 140s on average. No CP, mildly SOB at baseline. Today says she feels encouraged about her progress and is feeling ready to work with rehab. Objective Vitals Vital Signs Date Time Temp Pulse Resp B/P Pulse Ox O2 Delivery O2 Flow Rate FiO2 02/15/16 07:50 96.5 65 18 113/60 97 02/15/16 06:43 66 02/15/16 04:15 97.6 67 19 119/59 96 02/15/16 00:00 98.2 67 19 142/64 98 02/14/16 20:40 99 Nasal Cannula 3.00 02/14/16 20:15 96.4 80 20 182/79 92 02/14/16 14:44 96.6 69 19 168/72 96 02/14/16 11:27 96.2 60 19 138/70 97 I/O 02/14/16 02/14/16 02/14/16 02/15/16 02/15/16 02/15/16 07:00 15:00 23:00 07:00 15:00 23:00 Intake Total 120 ml 600 ml 2014 ml 120 ml 562 ml Balance 120 ml 600 ml 2014 ml 120 ml 562 ml Intake Oral 120 ml 600 ml 480 ml 120 ml IV Total 1534 ml 562 ml # Voids 2 7 7 0 # Bowel Movements 0 6 1 0 Result Diagram: 02/14/16 1040 02/14/16 1040 Imaging Last Impressions Chest X-Ray 02/14/16 0820 Signed Impressions: Service Date/Time: Sunday, February 14, 2016 10:54 - CONCLUSION: Mild interstitial edema with increasing consolidative changes left base. Alton Moody MD FACR Chest CT 02/13/16 0000 Signed Impressions: Service Date/Time: Saturday, February 13, 2016 19:27 - CONCLUSION: 1. Focal consolidation or atelectasis at the left lung base with small left effusion. The findings are similar to 2011 and may be chronic. Mild emphysema. No adenopathy. Mild to moderate kyphosis. Ganesh Feldman MD Ankle X-Ray 02/09/16 0000 Signed Impressions: Service Date/Time: Tuesday, February 09, 2016 11:02 - CONCLUSION: Interim left ankle ORIF as above. Anatomic alignment. No acute complication demonstrated. Oscar Paulino MD Head CT 02/07/16 0000 Signed Impressions: Service Date/Time: Sunday, February 07, 2016 12:20 - CONCLUSION: No significant change has occurred. Jasbir Holliday MD Objective Remarks GEN: WDWN elderly white female lying on side, agitated but in NAD Skin: No visible rashes. Large seborrheic keratoses on face RESP: Normal rate on 3 L O2 via NC. CTAB, no wheezes or crackles. CV: Regular rate. Abd: Normal bowel sounds; no pain to palpation MSK: Left ankle with splinting and ENEDELIA wrap up to below knee. NEURO/PSYCH: Awake, alert, seemingly oriented. Grossly normal cranial nerves; grossly normal motor and sensory function. No longer acutely psychotic (no delusions or hallucinations). Procedures ORIF L ankle - 02/09/16 Medications and IVs Last Impressions Chest X-Ray 02/14/16 0820 Signed Impressions: Service Date/Time: Sunday, February 14, 2016 10:54 - CONCLUSION: Mild interstitial edema with increasing consolidative changes left base. Alton Moody MD FACR Chest CT 02/13/16 0000 Signed Impressions: Service Date/Time: Saturday, February 13, 2016 19:27 - CONCLUSION: 1. Focal consolidation or atelectasis at the left lung base with small left effusion. The findings are similar to 2011 and may be chronic. Mild emphysema. No adenopathy. Mild to moderate kyphosis. Ganesh Feldman MD Ankle X-Ray 02/09/16 0000 Signed Impressions: Service Date/Time: Tuesday, February 09, 2016 11:02 - CONCLUSION: Interim left ankle ORIF as above. Anatomic alignment. No acute complication demonstrated. Oscar Paulino MD Head CT 02/07/16 0000 Signed Impressions: Service Date/Time: Sunday, February 07, 2016 12:20 - CONCLUSION: No significant change has occurred. Jasbir Holliday MD A/P Assessment and Plan 85 year old female with h/o COPD, HTN, TX not requiring stents presenting with: Discharge Planning To PT at rehab pending clearance by ortho, normalization of electrolytes, treatment of UTI Problem List: (1) Delirium due to conditions classified elsewhere Status: Resolved Plan: Delirium history during hospitalizations. Intermittently delirious over past several days; unclear etiology. Leukocytosis during hospitalization. Cough productive of mucus during exam Discussed with Dr. Ray (patient's PCP)- patient has history of delirium during hospitalizations which has been controlled with a variety of antipsychotic medications previously CXR-cardiomegaly with L basilar effusion and consolidation. Diffuse interstitial prominence. Exam suggestive of congestive failure Blood culturesx2 (02/10): negative x3 days Urine culture (02/06): fernando-sensitive E coli TSH 0.799, Ammonia 18 ABGs 02/10-02/11 with persistent CO2 elevation, hypoxia off of O2 (stable with prior admissions) Troponin I: 0.90 --> 0.81 --> 0.83 --Cardiology consulted, appreciate their recommendations --See below for "Troponin elevated" --Haldol 1mg PRN for symptom control (2) Troponin level elevated Status: Acute Plan: Impression: Patient with ventricular arrhythmia on telemetry at 0230 02/12 ; ventricular in nature; later appeared to be bigeminy. Patient also intermittently delirious. Troponin drawn due to arrhythmia; found to be 0.90. Stable SOB; no active chest pain. EKG concerning for possible anterolateral ischemia Troponin I: 0.90 --> 0.81 --> 0.83 -Discussed with Cardiology, appreciate their recommendations -Likely NSTEMI, mild -Cardiology d/w family and patient, they are opting for medical management only -Echo pending -Aspirin - Therapeutic lovenox 80 mg SQ BID -Electrolyte replacement -Consider decreasing beta timmy if bradycardic (3) Nondisplaced trimalleolar fracture of left lower leg, initialencounter for closed fracture Status: Acute Plan: POD 6 from surgery of left ankle Secondary to mechanical fall. Noted on Left foot XR. No prodromal symptoms, neurologic & cardiopulmonary exam reassuring. No need to work up additional causes of fall at this time. CT head negative for intracranial bleed Orthopedics consulted, appreciate recommendations -PT eval & treat - recommending rehab inpatient --NWB -maintain splint -elevate -f/u with [facility] or [facility] in 2 weeks Pain Control: -Tylenol 1000 mg IV Q6H scheduled -Hold opiate PRNs for pain at this time since she had such a strong reaction to anesthesia; will re-order for pain as needed -Ibuprofen PRN (4) Chronic obstructive pulmonary disease Status: Chronic Plan: Impression: On 3L NC home oxygen. ABG demonstrative of hypoxia off of O2 and hypercarbia during hospitalization Chest CT 02/12 stable: Focal consolidation or atelectasis at the left lung base with small left effusion. The findings are similar to 2011 and may be chronic. Mild emphysema. No adenopathy. Mild to moderate kyphosis. -Pulmonology consulted -Continue broad spectrum antibiotics for possible pneumonia/delirium -DuoNebs every 4 hours as needed for shortness of breath -Prednisone 20mg daily (5) Congestive heart failure Status: Chronic Plan: Impression: No CHF per patient and daughter, but on home lasix for " fluid around heart" and carries CHF diagnosis in EMR Mild crackles on exam, asymptomatic currently Repeat CXR 02/09 demonstrative of cardiomegaly with left basilar effusion and consolidation. Diffuse interstitial prominence suggestive of congestive failure BNP 489 (02/11) --> 504 (02/13) * Will give PRN Lasix IV * Continue home lasix 20mg daily * Continue to monitor * Will repeat echo per Cardiology (6) UTI (urinary tract infection) Status: Resolved Plan: Asymptomatic, UA showing leuk esterase, many WBC UCx (02/06): fernando-sensitive E coli * S/p rocephin, continue antibiotics as above * Recheck UA due to delirium Antibiotic History: Rocephin 1gm IV x3 doses (7) Postherpetic neuralgia Status: Chronic Plan: Stable * Resume home gabapentin due to delirium (could confuse altered mental status picture) (8) HTN (hypertension) Status: Chronic Plan: Impression: BP intermittently hypertensive * Continue home metoprolol 12.5mg BID * Continue Amlodipine 5mg daily (9) FEN/PPX Status: Acute Plan: Fluids: None at this time Elecs: Monitor and replete as needed Nutrition: Diet regular basic DVT: on therapeutic heparin for presumed NSTEMI Problem Qualifiers (1) Chronic obstructive pulmonary disease: Qualified Code: J44.9 - Chronic obstructive pulmonary disease, unspecified COPD type (2) Congestive heart failure: Qualified Code: I50.9 - Chronic congestive heart failure, unspecified congestive heart failure type (3) UTI (urinary tract infection): Qualified Code: N30.00 - Acute cystitis without hematuria (4) HTN (hypertension): Qualified Code: I10 - Essential hypertension Abdiel Ayala MD R1 Feb 15, 2016 08:48
[2016-02-15 09:13] LABS: AUTOMATED NEUTROPHIL # 9.2 TH/MM3 (1.8-7.7); BASOPHIL # 0.1 TH/MM3 (0-0.2); BASOPHIL % 0.7 % (0.0-2.0); EOSINOPHIL # 0.1 TH/MM3 (0-0.4); EOSINOPHIL % 1.1 % (0.0-4.0); HEMATOCRIT 32.5 % (35.0-46.0); HEMO FLAGS DIFF FINAL; LYMPH % 15.1 % (9.0-44.0); LYMPHOCYTE # 1.9 TH/MM3 (1.0-4.8); MEAN CELL VOLUME 88.3 FL (80.0-100.0); MEAN CORPUSCULAR HEMOGLOBIN 28.8 PG (27.0-34.0); MEAN CORPUSCULAR HGB CONC 32.6 % (32.0-36.0); MONO % 10.9 % (0.0-8.0); NEUT % 72.2 % (16.0-70.0); PLATELET COUNT 218 TH/MM3 (150-450); RED BLOOD COUNT 3.68 MIL/MM3 (4.00-5.30); RED CELL DISTRIBUTION WIDTH 14.1 % (11.6-17.2); WHITE BLOOD COUNT 12.7 TH/MM3 (4.0-11.0)
--- NOTE | 2016-02-15 10:38 | HHI.PR ---
Addendum to Inpatient Note Addendum Reason: Additional Documentation Additional Information Off Service Note Mrs. Davis is an 85 year old female with a PMH of COPD, CHF admitted for fracture of left ankle after a mechanical fall. ORIF L ankle performed 02/09/16. Patient had prolonged delirium with psychotic features after surgery, work-up revealed elevated troponin without EKG changes, cardiology consulted and agreed with diagnosis of NSTEMI. Work-up also showing questionable pneumonia for which antibiotics were broadened. Patient improved clinically with regard to both mental status and respiratory status even prior to treating MD. Plan is for medical management of NSTEMI as patient and family do not wish to pursue cardiac catheterization at this time. Cardiology on board and agree with current plan of aspirin and therapeutic lovenox. Echo pending. Abdiel Ayala MD R1 Feb 15, 2016 10:38
[2016-02-15] MEDS ORDERED: POTASSIUM CHLORIDE 10 MEQ CONTROLLED RELEASE TAB PO ONE (10:45)
[2016-02-15] MEDS: LEVOFLOXACIN 750 MG TAB PO SCH (10:57)
--- NOTE | 2016-02-15 12:17 | EC ---
Study Study Date:02/15/2016 STUDY CONCLUSIONS SUMMARY - Left ventricle: The cavity size was normal. Wall thickness was normal. Systolic function was normal. The estimated ejection fraction was in the range of 50% to 55%. Regional wall motion abnormalities cannot be excluded. - Mitral valve: Mildly calcified annulus. Mildly thickened leaflets, . - Left atrium: The atrium was mildly dilated. - Right ventricle: Systolic function was reduced. - Pericardium, extracardiac: A small pericardial effusion was identified posterior to the heart. If LV function is below 40, please consider prescribing an ACEI or ARB or document rationale for non-use. PROCEDURE DATA STUDY STATUS: Elective. Procedure: Transthoracic echocardiography. Image quality was good. Scanning was performed from the parasternal, apical, and subcostal acoustic windows. Study completion: The patient tolerated the procedure well. Transthoracic echocardiography. M-mode, complete 2D, complete spectral Doppler, and color Doppler. Patient status: Inpatient. CARDIAC ANATOMY LEFT VENTRICLE: Not well visualized. The cavity size was normal. Wall thickness was normal. Systolic function was normal. The estimated ejection fraction was in the range of 50% to 55%. Regional wall motion abnormalities cannot be excluded. AORTIC VALVE: Poorly visualized. Mildly thickened leaflets. Doppler: Transvalvular velocity was within the normal range. There was no stenosis. No regurgitation. AORTA: Aortic root: The aortic root was normal in size. MITRAL VALVE: Poorly visualized. Mildly calcified annulus. Mildly thickened leaflets, . Doppler: Transvalvular velocity was within the normal range. There was no evidence for stenosis. No regurgitation. LEFT ATRIUM: The atrium was mildly dilated. RIGHT VENTRICLE: Not well visualized. Systolic function was reduced. PULMONIC VALVE: Doppler: Transvalvular velocity was within the normal range. There was no evidence for stenosis. No regurgitation. TRICUSPID VALVE: Poorly visualized. Structurally normal valve. Doppler: Transvalvular velocity was within the normal range. No regurgitation. RIGHT ATRIUM: Poorly visualized. PERICARDIUM: A small pericardial effusion was identified posterior to the heart. BASIC MEASUREMENTS ADULT Normal Left ventricle LV internal dimension, ED, chordal level, *53.3 mm 43-52 PLAX LV posterior wall thickness, ED 8.12 mm IVS/LVPW ratio, ED 1.29 <1.3 Ventricular septum Septal thickness, ED 10.5 mm Left atrium Anterior-posterior dimension 43 mm Right ventricle RV internal dimension, ED, PLAX 37.2 mm 19-38 DOPPLER MEASUREMENTS ADULT Normal Mitral valve Peak E-wave velocity 69.7 cm/s Peak A-wave velocity 48.1 cm/s Peak E/A ratio 1.4 Tricuspid valve Regurgitant peak velocity 124 cm/s Peak RV-RA gradient, S 6 mm Hg Maximal regurgitant velocity 124 cm/s Right ventricle RV pressure, S 16 mm Hg <30 LEGEND: Mean values are shown as u=mean value. Asterisk (*) teran values outside specified normal range. Prepared and signed by Leland Lovell [id number]
[2016-02-15] MEDS ORDERED: PHARMACY ORDERED LAB XX ONE (12:45)
[2016-02-15] MEDS: risperiDONE 0.25 MG TAB PO SCH (20:31)
[2016-02-15] MEDS: ATORVASTATIN 20 MG TAB PO SCH (20:31)
[2016-02-16] VITALS (9 sets, daily range): BP systolic 110–172; BP diastolic 48–79; PULSE 19–83; RESP 17–19; TEMP 96.6–98.2; O2SAT 93–100
[2016-02-16] MEDS: HALOPERIDOL LACTATE 5 MG/ML AMP IM SCH (04:00)
[2016-02-16] MEDS: ACETAMINOPHEN 325 MG TAB PO SCH ×2 (05:57)
[2016-02-16 07:00] LABS: AUTOMATED NEUTROPHIL # 6.4 TH/MM3 (1.8-7.7); BASOPHIL # 0.1 TH/MM3 (0-0.2); BASOPHIL % 0.6 % (0.0-2.0); EOSINOPHIL # 0.3 TH/MM3 (0-0.4); EOSINOPHIL % 2.7 % (0.0-4.0); HEMATOCRIT 32.7 % (35.0-46.0); HEMO FLAGS DIFF FINAL; LYMPH % 20.1 % (9.0-44.0); LYMPHOCYTE # 1.9 TH/MM3 (1.0-4.8); MEAN CELL VOLUME 89.8 FL (80.0-100.0); MEAN CORPUSCULAR HEMOGLOBIN 28.5 PG (27.0-34.0); MEAN CORPUSCULAR HGB CONC 31.7 % (32.0-36.0); MONO % 10.4 % (0.0-8.0); NEUT % 66.2 % (16.0-70.0); PLATELET COUNT 216 TH/MM3 (150-450); RED BLOOD COUNT 3.65 MIL/MM3 (4.00-5.30); RED CELL DISTRIBUTION WIDTH 14.5 % (11.6-17.2); WHITE BLOOD COUNT 9.6 TH/MM3 (4.0-11.0)
[2016-02-16 07:12] LABS: BICARBONATE 41.8 MEQ/L (21.0-32.0); POTASSIUM 3.6 MEQ/L (3.5-5.1)
[2016-02-16] MEDS: ENOXAPARIN SODIUM 80 MG/0.8 ML SYRINGE SQ SCH ×2 (08:04→21:19)
[2016-02-16] MEDS: predniSONE 20 MG TAB PO SCH (08:05)
[2016-02-16] MEDS: GABAPENTIN 400 MG CAP PO SCH ×2 (08:05→21:20)
[2016-02-16] MEDS: METOPROLOL TARTRATE 25 MG TAB PO SCH ×2 (08:05→21:20)
[2016-02-16] MEDS: ASPIRIN EC 81 MG TABEC PO SCH (08:05)
[2016-02-16] MEDS: PANTOPRAZOLE SOD 40 MG DELAYED RELEASE TAB PO SCH (08:05)
[2016-02-16] MEDS: LEVOFLOXACIN 750 MG TAB PO SCH (08:05)
[2016-02-16] MEDS: CHOLECALCIFEROL (VIT D3) 5000 UNIT CAP PO SCH (08:05)
[2016-02-16] MEDS: DULoxetine HCl DR 60 MG CAP PO SCH (08:05)
[2016-02-16] MEDS: FUROSEMIDE 20 MG TAB PO SCH (08:05)
[2016-02-16] MEDS: DOCUSATE SODIUM 50 MG/SENNA 8.6 MG TAB PO SCH ×2 (08:06→21:20)
[2016-02-16] MEDS: RESP: IPRATROPIUM 0.5 MG/2.5 ML NEB NEB SCH (08:24)
[2016-02-16] MEDS ORDERED: HALOPERIDOL LACTATE 5 MG/ML AMP IM PRN (10:00)
--- NOTE | 2016-02-16 10:46 | PD.CARD.PN ---
Subjective Subjective Remarks No chest pain, no shortness of breath Objective Medications Current Medications Medications (Trade) Dose Ordered Sig/Tony Route Start Time Stop Time Status Last Admin (Xanax) 0.25 mg Q6H PRN PO 02/07/16 11:00 Hold 02/08/16 15:40 (Ecotrin Ec) 81 mg DAILY PO 02/08/16 09:00 02/16/16 08:05 (Lipitor) 20 mg HS PO 02/07/16 21:00 02/15/16 20:31 (Cymbalta Dr) 60 mg DAILY PO 02/08/16 09:00 02/16/16 08:05 (risperDAL) 0.25 mg HS PO 02/07/16 21:00 02/15/16 20:31 (Vitamin D3) 5,000 units DAILY PO 02/07/16 13:00 02/16/16 08:05 (Motrin) 400 mg Q6H PRN PO 02/07/16 13:30 02/12/16 13:45 (Narcan Inj) 0.4 mg UNSCH PRN IV 02/07/16 13:30 (Zofran Inj) 4 mg Q4H PRN IVP 02/09/16 11:30 (Lasix) 20 mg DAILY PO 02/11/16 09:00 02/16/16 08:05 (Lopressor) 25 mg BID PO 02/13/16 21:00 02/16/16 08:05 (Lovenox Inj) 80 mg Q12H SQ 02/13/16 20:00 02/16/16 08:04 (Nitrostat Sl) 0.4 mg Q5M PRN SL 02/13/16 19:15 (Morphine Inj) 2 mg Q30M PRN IV 02/13/16 19:15 (Protonix) 40 mg DAILY PO 02/13/16 21:15 02/16/16 08:05 (Neurontin) 400 mg BID PO 02/14/16 21:00 02/16/16 08:05 (Deltasone) 10 mg DAILY PO 02/15/16 09:00 02/16/16 08:05 (Norvasc) 10 mg DAILY PO 02/15/16 09:00 02/16/16 08:05 (Dulce-Colace) 2 tab BID PO 02/14/16 21:00 02/14/16 21:05 (Miralax) 17 gm DAILY PRN PO 02/14/16 16:30 (Levaquin) 750 mg DAILY PO 02/15/16 10:15 02/16/16 08:05 (Tylenol) 650 mg Q6H PRN PO 02/16/16 12:00 (Haldol Inj) 1 mg Q6H PRN IM 02/16/16 10:00 Vital Signs / I&O Vital Signs Date Time Temp Pulse Resp B/P Pulse Ox O2 Delivery O2 Flow Rate FiO2 02/16/16 08:24 93 Nasal Cannula 5.00 02/16/16 07:46 96.6 83 19 172/79 94 02/16/16 07:24 Nasal Cannula 3.00 02/16/16 07:24 52 02/16/16 05:25 98.2 64 17 148/65 97 02/16/16 01:12 97.7 19 19 130/58 99 02/15/16 22:10 96.8 62 19 132/56 95 02/15/16 19:51 95 Nasal Cannula 4.00 02/15/16 15:20 96.6 74 18 122/56 93 02/15/16 11:17 95.4 65 18 98/42 94 I/O 02/15/16 02/15/16 02/15/16 02/16/16 02/16/16 02/16/16 07:00 15:00 23:00 07:00 15:00 23:00 Intake Total 120 ml 1202 ml 240 ml 120 ml Balance 120 ml 1202 ml 240 ml 120 ml Intake Oral 120 ml 640 ml 240 ml 120 ml IV Total 562 ml # Voids 0 3 1 0 # Bowel Movements 0 4 0 0 Physical Exam GENERAL: NAD, AAO SKIN: Warm and dry. HEAD: Atraumatic. Normocephalic. EYES: Pupils equal and round. No scleral icterus. No injection or drainage. ENT: No nasal bleeding or discharge. Mucous membranes pink and moist. NECK: Trachea midline. No JVD. CARDIOVASCULAR: Normal sinus rhythm RESPIRATORY: No accessory muscle use. Decreased breath sounds bilaterally GASTROINTESTINAL: Abdomen soft, non-tender, nondistended. Hepatic and splenic margins not palpable. MUSCULOSKELETAL: Left ankle in cast. NEUROLOGICAL: Awake and alert. No obvious cranial nerve deficits. Motor grossly within normal limits. Five out of 5 muscle strength in the arms and legs. Normal speech. PSYCHIATRIC: Appropriate mood and affect; insight and judgment normal. Laboratory Laboratory Tests Test 02/16/16 06:01 White Blood Count 9.6 TH/MM3 Red Blood Count 3.65 MIL/MM3 Hemoglobin 10.4 GM/DL Hematocrit 32.7 % Mean Corpuscular Volume 89.8 FL Mean Corpuscular Hemoglobin 28.5 PG Mean Corpuscular Hemoglobin 31.7 % Concent Red Cell Distribution Width 14.5 % Platelet Count 216 TH/MM3 Mean Platelet Volume 9.5 FL Neutrophils (%) (Auto) 66.2 % Lymphocytes (%) (Auto) 20.1 % Monocytes (%) (Auto) 10.4 % Eosinophils (%) (Auto) 2.7 % Basophils (%) (Auto) 0.6 % Neutrophils # (Auto) 6.4 TH/MM3 Lymphocytes # (Auto) 1.9 TH/MM3 Monocytes # (Auto) 1.0 TH/MM3 Eosinophils # (Auto) 0.3 TH/MM3 Basophils # (Auto) 0.1 TH/MM3 CBC Comment DIFF FINAL Differential Comment Sodium Level 146 MEQ/L Potassium Level 3.6 MEQ/L Chloride Level 102 MEQ/L Carbon Dioxide Level 41.8 MEQ/L Anion Gap 2 MEQ/L Blood Urea Nitrogen 22 MG/DL Creatinine 0.83 MG/DL Estimat Glomerular Filtration 65 ML/MIN Rate Random Glucose 100 MG/DL Calcium Level 9.1 MG/DL Assessment and Plan Problem List: (1) Troponin level elevated (2) UTI (urinary tract infection) (3) Nondisplaced trimalleolar fracture of left lower leg, initialencounter for closed fracture (4) HTN (hypertension) (5) Chronic obstructive pulmonary disease Assessment and Plan 1) Elevated troponin, unsure if Type 1 vs 2, had a long talk with the patient and her family originally, they would like to continue medical management and not pursue more aggressive measures, they understand the risk involved 2) EF 50-55% 3) Continue BB as is for now, if significant bradycardia can change to Lopressor 12.5mg q 8 hours 4) No further NSVT noted 5) Will see PRN Problem Qualifiers (1) UTI (urinary tract infection): Qualified Code: N30.00 - Acute cystitis without hematuria (2) HTN (hypertension): Qualified Code: I10 - Essential hypertension (3) Chronic obstructive pulmonary disease: Qualified Code: J44.9 - Chronic obstructive pulmonary disease, unspecified COPD type Arley Olson DO Feb 16, 2016 10:46
--- NOTE | 2016-02-16 10:59 | HHI.DCPOC ---
Discharge Care Plan Diagnosis: (1) Non-ST elevated myocardial infarction (2) Nondisplaced trimalleolar fracture of left lower leg, initialencounter for closed fracture Goals to Promote Your Health * To prevent worsening of your condition and complications * To maintain your health at the optimal level Directions to Meet Your Goals Take your medications as prescribed Follow your dietary instruction Follow activity as directed Keep your appointments as scheduled Take your immunizations and boosters as scheduled If your symptoms worsen call your PCP, if no PCP go to Urgent Care Center or Emergency Room Smoking is Dangerous to Your Health. Avoid second hand smoke Call the 24-hour hour crisis hotline for domestic abuse at Liz Newberry MD R3 Feb 16, 2016 10:58
[2016-02-16] MEDS ORDERED: ACETAMINOPHEN 325 MG TAB PO PRN (12:00)
--- NOTE | 2016-02-16 12:25 | HHI.FPPN ---
Subjective Remarks No events overnight. BPs 90s-140s/40-60s. Remains afebrile. Continues to be alert and oriented. Patient and son only report slight cough. Otherwise patient is without complaints and ready to start rehabilitation. (Boyd Lopez MD R1) Objective Vitals Vital Signs Date Time Temp Pulse Resp B/P Pulse Ox O2 Delivery O2 Flow Rate FiO2 02/16/16 08:24 93 Nasal Cannula 5.00 02/16/16 07:46 96.6 83 19 172/79 94 02/16/16 07:24 Nasal Cannula 3.00 02/16/16 07:24 52 02/16/16 05:25 98.2 64 17 148/65 97 02/16/16 01:12 97.7 19 19 130/58 99 02/15/16 22:10 96.8 62 19 132/56 95 02/15/16 19:51 95 Nasal Cannula 4.00 02/15/16 15:20 96.6 74 18 122/56 93 I/O 02/15/16 02/15/16 02/15/16 02/16/16 02/16/16 02/16/16 07:00 15:00 23:00 07:00 15:00 23:00 Intake Total 120 ml 1202 ml 240 ml 120 ml Balance 120 ml 1202 ml 240 ml 120 ml Intake Oral 120 ml 640 ml 240 ml 120 ml IV Total 562 ml # Voids 0 3 1 0 # Bowel Movements 0 4 0 0 (Boyd Lopez MD R1) Result Diagram: 02/16/16 0601 02/16/16 0601 Objective Remarks GEN: WDWN elderly white female lying on side, agitated but in NAD Skin: No visible rashes. Large seborrheic keratoses on face RESP: Normal rate. CTAB, no wheezes or crackles. CV: Regular rate. Abd: Normal bowel sounds; no pain to palpation MSK: Left ankle with splinting and ENEDELIA wrap up to below knee. NEURO/PSYCH: Awake, alert, oriented. Grossly normal cranial nerves; grossly normal motor and sensory function. No longer acutely psychotic (no delusions or hallucinations). Procedures ORIF L ankle - 02/09/16 (Boyd Lopez MD R1) A/P Assessment and Plan 85 year old female with h/o COPD, HTN, [place] not requiring stents presenting with: Discharge Planning To PT at rehab pending clearance by ortho, normalization of electrolytes, treatment of UTI (Boyd Lopez MD R1) Attending Attestation Patient seen and examined with the resident team Case reviewed and discussed Agree with plan of care as discussed with me and documented in the resident note. (Analy Olmstead MD) Problem List: (1) Delirium due to conditions classified elsewhere Status: Resolved Plan: Delirium history during hospitalizations. Intermittently delirious for a few days but now resolved. Leukocytosis during hospitalization. Cough productive of mucus during exam Discussed with Dr. Ray (patient's PCP)- patient has history of delirium during hospitalizations which has been controlled with a variety of antipsychotic medications previously CXR-cardiomegaly with L basilar effusion and consolidation. Diffuse interstitial prominence. Exam suggestive of congestive failure Blood culturesx2 (02/10): negative x3 days Urine culture (02/06): fernando-sensitive E coli TSH 0.799, Ammonia 18 ABGs 02/10-02/11 with persistent CO2 elevation, hypoxia off of O2 (stable with prior admissions) Troponin I: 0.90 --> 0.81 --> 0.83 --Cardiology consulted, appreciate their recommendations. Now signed off. --See below for "Troponin elevated" --Haldol 1mg PRN for symptom control (2) Troponin level elevated Status: Acute Plan: Impression: Patient with ventricular arrhythmia on telemetry at 0230 02/12 ; ventricular in nature; later appeared to be bigeminy. Patient also intermittently delirious. Troponin drawn due to arrhythmia; found to be 0.90. Stable SOB; no active chest pain. EKG concerning for possible anterolateral ischemia Troponin I: 0.90 --> 0.81 --> 0.83 -Discussed with Cardiology, appreciate their recommendations -Likely NSTEMI, mild -Cardiology d/w family and patient, they are opting for medical management only -Echo pending -Aspirin - Therapeutic lovenox 80 mg SQ BID -Electrolyte replacement -Consider decreasing beta timmy if bradycardic (3) Nondisplaced trimalleolar fracture of left lower leg, initialencounter for closed fracture Status: Acute Plan: POD 8 from surgery of left ankle Secondary to mechanical fall. Noted on Left foot XR. No prodromal symptoms, neurologic & cardiopulmonary exam reassuring. No need to work up additional causes of fall at this time. CT head negative for intracranial bleed Orthopedics consulted, appreciate recommendations -PT eval & treat - recommending rehab inpatient --NWB -maintain splint -elevate -f/u with [facility] or [facility] in 2 weeks Pain Control: -Tylenol 1000 mg IV Q6H scheduled -Hold opiate PRNs for pain at this time since she had such a strong reaction to anesthesia; will re-order for pain as needed -Ibuprofen PRN (4) Chronic obstructive pulmonary disease Status: Chronic Plan: Impression: On 3L [place] home oxygen. ABG demonstrative of hypoxia off of O2 and hypercarbia during hospitalization Chest CT 02/12 stable: Focal consolidation or atelectasis at the left lung base with small left effusion. The findings are similar to 2011 and may be chronic. Mild emphysema. No adenopathy. Mild to moderate kyphosis. -Pulmonology consulted -Continue broad spectrum antibiotics for possible pneumonia/delirium -DuoNebs every 4 hours as needed for shortness of breath -Prednisone 20mg daily (5) Congestive heart failure Status: Chronic Plan: Impression: No CHF per patient and daughter, but on home lasix for " fluid around heart" and carries CHF diagnosis in EMR Mild crackles on exam, asymptomatic currently Repeat CXR 02/09 demonstrative of cardiomegaly with left basilar effusion and consolidation. Diffuse interstitial prominence suggestive of congestive failure BNP 489 (02/11) --> 504 (02/13) * Will give PRN Lasix IV * Continue home lasix 20mg daily * Continue to monitor * Will repeat echo per Cardiology (6) UTI (urinary tract infection) Status: Resolved Plan: Asymptomatic, UA showing leuk esterase, many WBC UCx (02/06): fernando-sensitive E coli * S/p rocephin, continue antibiotics as above * Recheck UA due to delirium Antibiotic History: Rocephin 1gm IV x3 doses (7) Postherpetic neuralgia Status: Chronic Plan: Stable * Resume home gabapentin due to delirium (could confuse altered mental status picture) (8) HTN (hypertension) Status: Chronic Plan: Impression: BP intermittently hypertensive * Continue home metoprolol 12.5mg BID * Continue Amlodipine 5mg daily (9) FEN/PPX Status: Acute Plan: Fluids: None at this time Elecs: Monitor and replete as needed Nutrition: Diet regular basic DVT: on therapeutic heparin for presumed NSTEMI (Boyd Lopez MD R1) Problem Qualifiers (1) Chronic obstructive pulmonary disease: Qualified Code: J44.9 - Chronic obstructive pulmonary disease, unspecified COPD type (2) Congestive heart failure: Qualified Code: I50.32 - Chronic diastolic congestive heart failure (3) UTI (urinary tract infection): Qualified Code: N30.00 - Acute cystitis without hematuria (4) HTN (hypertension): Qualified Code: I10 - Essential hypertension Boyd Lopez MD R1 Feb 16, 2016 12:25 Analy Olmstead MD Feb 18, 2016 13:21
--- NOTE | 2016-02-16 20:04 | HHI.PR ---
Subjective Remarks Seems calm and in no distress.. On O2 at 2l. Sat 95. Will go to rehab. Objective Vital Signs Date Time Temp Pulse Resp B/P Pulse Ox O2 Delivery O2 Flow Rate FiO2 02/16/16 15:41 97.1 82 19 114/61 97 02/16/16 11:50 97.2 68 19 110/48 97 02/16/16 08:24 93 Nasal Cannula 5.00 02/16/16 07:46 96.6 83 19 172/79 94 02/16/16 07:24 Nasal Cannula 3.00 02/16/16 07:24 52 02/16/16 05:25 98.2 64 17 148/65 97 02/16/16 01:12 97.7 19 19 130/58 99 02/15/16 22:10 96.8 62 19 132/56 95 I/O 02/15/16 02/15/16 02/15/16 02/16/16 02/16/16 02/16/16 07:00 15:00 23:00 07:00 15:00 23:00 Intake Total 120 ml 1202 ml 240 ml 120 ml 840 ml Balance 120 ml 1202 ml 240 ml 120 ml 840 ml Intake Oral 120 ml 640 ml 240 ml 120 ml 840 ml IV Total 562 ml # Voids 0 3 1 0 4 # Bowel Movements 0 4 0 0 3 Result Diagram: 02/16/1660002/16/16600 Objective Remarks General: This moderately overweight elderly lady is in bed. She has a cast on her left leg. She is anxious and Confused. HEENT: Head normocephalic. Pupils are reactive and equal. Tongue moist. Nasal mucosa dry. Throat was clear Neck: Supple. No lymphadenopathy. No bruits or thyroid enlargement. Chest: Equal movements with scattered wheezes bilaterally, prolonged expirations and a few bibasilar crackles. Heart: The heart sounds are irregular, S1 and S2 with no murmur. No S3. Abdomen: Soft and benign. No masses, no organomegaly or tenderness. Bowel sounds are active. Extremities: diminished pulses.Left leg in cast. Neurologic: Reflexes are 1+ with no gross motor deficits. Skin: No lesions are observed. Assessment and Plan Assessment and Plan IMPRESSION 1. COPD with chronic bronchitis and reactive airways. 2. UTI. 3. History of left ankle fracture. 4. CHF and cardiomyopathy. 5. Possible Pneumonia , Bi basal. Plan : 1. Cont Antibiotics for 5 days. 2. Up with help. 3. Nebs qid , duoneb. 4. O2 at 3 l.Arrange O2 at Rehab 5. Haldol and xanax for agitation. 6. Chest X ray in am 7. Taper prednisone to 10 mg daily. Dolores Gao MD Feb 16, 2016 20:04
[2016-02-16] MEDS: ATORVASTATIN 20 MG TAB PO SCH (21:20)
[2016-02-16] MEDS: risperiDONE 0.25 MG TAB PO SCH (21:20)
[2016-02-17] VITALS: BP 114/55; PULSE 60; RESP 17; TEMP 97.4; O2SAT 99
[2016-02-17 04:00] VITALS: BP 118/58; PULSE 62; RESP 16; TEMP 97.1; O2SAT 98
[2016-02-17 06:18] LABS: AUTOMATED NEUTROPHIL # 7.4 TH/MM3 (1.8-7.7); BASOPHIL % 0.4 % (0.0-2.0); EOSINOPHIL # 0.2 TH/MM3 (0-0.4); EOSINOPHIL % 1.6 % (0.0-4.0); HEMO FLAGS DIFF FINAL; LYMPH % 18.6 % (9.0-44.0); MEAN CELL VOLUME 91.2 FL (80.0-100.0); MEAN CORPUSCULAR HEMOGLOBIN 28.2 PG (27.0-34.0); MEAN CORPUSCULAR HGB CONC 30.9 % (32.0-36.0); MONO % 9.8 % (0.0-8.0); NEUT % 69.6 % (16.0-70.0); PLATELET COUNT 218 TH/MM3 (150-450); RED BLOOD COUNT 3.51 MIL/MM3 (4.00-5.30); RED CELL DISTRIBUTION WIDTH 14.6 % (11.6-17.2); WHITE BLOOD COUNT 10.6 TH/MM3 (4.0-11.0)
[2016-02-17 06:31] LABS: BICARBONATE 43.4 MEQ/L (21.0-32.0); POTASSIUM 3.7 MEQ/L (3.5-5.1)
--- NOTE | 2016-02-17 06:58 | RADRPT ---
EXAM DATE/TIME: 02/17/2016 05:53 [facility] COMPARISON: CHEST SINGLE AP, February 14, 2016, 10:54. INDICATIONS : Short of breath, edema MEDICAL HISTORY : Chronic obstructive pulmonary disease. hypertension SURGICAL HISTORY : None. ENCOUNTER: Subsequent ACUITY: 1 week PAIN SCORE: 0/10 LOCATION: Bilateral chest FINDINGS: A single view of the chest demonstrates cardiomegaly and left basilar density. Patient is rotated to the left. Right lung clear. The cardiomediastinal contours are unremarkable. Osseous structures are intact. CONCLUSION: Cardiomegaly left basilar density, unchanged. Armin Brown MD on February 17, 2016 at 6:55 Board Certified Radiologist. This report was verified electronically.
[2016-02-17 07:00] VITALS: PULSE 55
--- NOTE | 2016-02-17 07:18 | PD.ORT.PN ---
Subjective Subjective Remarks Patient resting comfortably. No new complaints. Objective Vitals Vital Signs Date Time Temp Pulse Resp B/P Pulse Ox O2 Delivery O2 Flow Rate FiO2 02/17/16 04:00 97.1 62 16 118/58 98 02/17/16 00:00 97.4 60 17 114/55 99 02/16/16 22:56 98 Nasal Cannula 4.00 02/16/16 21:00 Nasal Cannula 3.00 02/16/16 20:00 97.2 64 19 124/52 100 02/16/16 15:41 97.1 82 19 114/61 97 02/16/16 11:50 97.2 68 19 110/48 97 02/16/16 08:24 93 Nasal Cannula 5.00 02/16/16 07:46 96.6 83 19 172/79 94 02/16/16 07:24 Nasal Cannula 3.00 02/16/16 07:24 52 I/O 02/16/16 02/16/16 02/16/16 02/17/16 02/17/16 02/17/16 07:00 15:00 23:00 07:00 15:00 23:00 Intake Total 120 ml 840 ml 480 ml 240 ml Balance 120 ml 840 ml 480 ml 240 ml Intake Oral 120 ml 840 ml 480 ml 240 ml # Voids 0 4 2 1 # Bowel Movements 0 3 0 0 Result Diagram: 02/17/16 0521 02/17/16 0521 Imaging Last 24 hours Impressions Chest X-Ray 02/17/16 0600 Signed Impressions: Service Date/Time: Wednesday, February 17, 2016 05:53 - CONCLUSION: Cardiomegaly left basilar density, unchanged. Armin Brown MD Objective Remarks LLE: +short leg splint. intact. NVI. clean and dry Assessment & Plan Assessment and Plan 1) Left Ankle Fx s/p ORIF - POD 9 -NWB -maintain splint -elevate -CM for rehab placement -f/u with [facility] or [facility] in 2 weeks -ortho clear for discharge to rehab -medicine to manage confusion JHONNY DODGE PA-C Feb 17, 2016 07:18
[2016-02-17 08:00] VITALS: BP_SYST 115; BP_SYST 125; BP_DIAS 44; BP_DIAS 56; PULSE 16; PULSE 65; RESP 16; TEMP 96.1; O2SAT 96
[2016-02-17 08:45] VITALS: O2SAT 98
[2016-02-17] MEDS: RESP: IPRATROPIUM 0.5 MG/2.5 ML NEB NEB SCH (08:45)
[2016-02-17] MEDS: DOCUSATE SODIUM 50 MG/SENNA 8.6 MG TAB PO SCH (09:00)
[2016-02-17] MEDS: FUROSEMIDE 20 MG TAB PO SCH ×2 (09:00→11:28)
[2016-02-17] MEDS: METOPROLOL TARTRATE 25 MG TAB PO SCH (09:00)
[2016-02-17] MEDS: ASPIRIN EC 81 MG TABEC PO SCH (09:42)
[2016-02-17] MEDS: ENOXAPARIN SODIUM 80 MG/0.8 ML SYRINGE SQ SCH (09:42)
[2016-02-17] MEDS: PANTOPRAZOLE SOD 40 MG DELAYED RELEASE TAB PO SCH (09:42)
[2016-02-17] MEDS: GABAPENTIN 400 MG CAP PO SCH (09:42)
[2016-02-17] MEDS: LEVOFLOXACIN 750 MG TAB PO SCH (09:42)
[2016-02-17] MEDS: CHOLECALCIFEROL (VIT D3) 5000 UNIT CAP PO SCH (09:42)
[2016-02-17] MEDS: predniSONE 20 MG TAB PO SCH (09:43)
[2016-02-17] MEDS: DULoxetine HCl DR 60 MG CAP PO SCH (09:44)
[2016-02-17] MEDS ORDERED: ALPR0.25 PO (09:47)
[2016-02-17] MEDS ORDERED: NEUR400C PO (09:47)
[2016-02-17] MEDS ORDERED: PLAV75TA29 PO (09:47)
[2016-02-17] MEDS ORDERED: METO25TA3 PO (09:47)
[2016-02-17] MEDS ORDERED: LEVA750T PO (09:47)
[2016-02-17] MEDS ORDERED: CHOL5000 PO (09:47)
[2016-02-17] MEDS ORDERED: AMLO10 PO (09:47)
[2016-02-17] MEDS ORDERED: PANT40TA3 PO (09:47)
[2016-02-17] MEDS ORDERED: PRED20 PO (09:47)
--- NOTE | 2016-02-17 11:00 | HHI.FPPN ---
Subjective Remarks No acute events overnight. Vital signs unremarkable. This morning she states that she feels ready to go to rehabilitation. Denies cough and chest pain. She otherwise feels okay when walking in regards to her baseline. No nausea/ vomiting when eating. (Katerine Jacobsen MD R2) Objective Vitals Vital Signs Date Time Temp Pulse Resp B/P Pulse Ox O2 Delivery O2 Flow Rate FiO2 02/17/16 08:45 98 Nasal Cannula 4.00 02/17/16 08:00 96.1 16 16 125/56 96 02/17/16 07:30 Nasal Cannula 3.00 02/17/16 07:00 55 02/17/16 04:00 97.1 62 16 118/58 98 02/17/16 00:00 97.4 60 17 114/55 99 02/16/16 22:56 98 Nasal Cannula 4.00 02/16/16 21:00 Nasal Cannula 3.00 02/16/16 20:00 97.2 64 19 124/52 100 02/16/16 15:41 97.1 82 19 114/61 97 02/16/16 11:50 97.2 68 19 110/48 97 I/O 02/16/16 02/16/16 02/16/16 02/17/16 02/17/16 02/17/16 07:00 15:00 23:00 07:00 15:00 23:00 Intake Total 120 ml 840 ml 480 ml 240 ml Balance 120 ml 840 ml 480 ml 240 ml Intake Oral 120 ml 840 ml 480 ml 240 ml # Voids 0 4 2 1 # Bowel Movements 0 3 0 0 (Katerine Jacobsen MD R2) Result Diagram: 02/17/16 0521 02/17/16 0521 Imaging Last Impressions Chest X-Ray 02/17/16 0600 Signed Impressions: Service Date/Time: Wednesday, February 17, 2016 05:53 - CONCLUSION: Cardiomegaly left basilar density, unchanged. Armin Brown MD Chest CT 02/13/16 0000 Signed Impressions: Service Date/Time: Saturday, February 13, 2016 19:27 - CONCLUSION: 1. Focal consolidation or atelectasis at the left lung base with small left effusion. The findings are similar to 2011 and may be chronic. Mild emphysema. No adenopathy. Mild to moderate kyphosis. Ganesh Feldman MD Ankle X-Ray 02/09/16 0000 Signed Impressions: Service Date/Time: Tuesday, February 09, 2016 11:02 - CONCLUSION: Interim left ankle ORIF as above. Anatomic alignment. No acute complication demonstrated. Oscar Paulino MD Head CT 02/07/16 0000 Signed Impressions: Service Date/Time: Sunday, February 07, 2016 12:20 - CONCLUSION: No significant change has occurred. Jasbir Holliday MD Objective Remarks GEN: Well-developed, well-nourished patient. No acute distress. Nasal cannula in place. CV: Distant heart sounds but with regular rate and rhythm without obvious murmurs LUNGS: Moderate air movement bilaterally but without wheezes, rubs, crackles. No accessory muscle use. MSK: Left ankle wrapped with splint. Clean. No edema on right lower extremity or calf tenderness. NEURO/PSYCH: Awake, alert. Appropriate insight and judgment. Normal speech Procedures ORIF L ankle - 02/09/16 (Katerine Jacobsen MD R2) A/P Assessment and Plan 85 year old female with h/o COPD, HTN, [place] not requiring stents presenting with: Discharge Planning Anticipate discharge today to rehabilitation facility sdw Dr. Lopez wdw Dr. Olmstead (Katerine Jacobsen MD R2) Attending Attestation Patient seen and examined. Case reviewed and discussed Agree with plan of care as discussed with me and documented in the resident note. (Analy Olmstead MD) Problem List: (1) Nondisplaced trimalleolar fracture of left lower leg, initialencounter for closed fracture Status: Acute Plan: S/P ORIF due to mechanical fall. Orthopedics consulted: appreciate recommendations * Recommend PT and rehabilitation * [facility]B * Follow-up in 2 weeks * Clear for discharge to rehabilitation (2) NSTEMI (non-ST elevated myocardial infarction) Status: Resolved Plan: Patient with ventricular arrhythmia on telemetry on02/12. Patient found to have NSTEMI on 02/12 Cardiology consulted: Appreciate recommendations * Family opted for medical management only * Echo with EF of 50-55% * No further nonsustained VT * Consider changing BB to Lopressor 12.5 mg TID if there is significant bradycardia (3) Chronic obstructive pulmonary disease Status: Chronic Plan: On 3L [place] home oxygen. Imaging: * CXR 02/16: Cardiomegaly, left basilar density unchanged. * CXR 02/13: Mild interstitial edema with increasing consolidative changes left base * Chest CT 02/12 stable: Focal consolidation or atelectasis at the left lung base with small left effusion. The findings are similar to 2011 and may be chronic. Mild emphysema. No adenopathy. Mild to moderate kyphosis. Pulmonology consulted: Appreciate recommendations -Continue antibiotics for 5 days -Albuterol and Duonebs -O2 needed at rehabilitation -Taper prednisone to 10 mg daily (4) Delirium due to conditions classified elsewhere Status: Resolved Plan: Delirium history during hospitalizations. Intermittently delirious for a few days but now resolved. Per discussion with patient's PCP, history of delirium during hospitalization which has been controlled with antipsychotics. -No Haldol needed since 02/14, currently when necessary (5) Congestive heart failure Status: Chronic Plan: CHF likely due to diastolic dysfunction as patient has adequate ejection fraction at 50-55%. BMP has been around 500 -Continue home Lasix 20 mg daily (6) UTI (urinary tract infection) Status: Resolved Plan: Asymptomatic, UCx (02/06): fernando-sensitive E coli * S/p rocephin, continue antibiotics as above for COPD. * Repeat UA after onset of delirium was negative Antibiotic History: Rocephin 1gm IV x3 doses (7) FEN/PPX Status: Acute Plan: Fluids: None at this time Elecs: Monitor and replete as needed Nutrition: Diet regular basic DVT: on therapeutic heparin for presumed NSTEMI GI prophylaxis: Protonix Chronic Conditions: * Posthepatic neuralgia: Continue gabapentin * Hypertension: Continue home metoprolol and amlodipine (Katerine Jacobsen MD R2) Problem Qualifiers (1) Chronic obstructive pulmonary disease: Qualified Code: J44.9 - Chronic obstructive pulmonary disease, unspecified COPD type (2) Congestive heart failure: Qualified Code: I50.32 - Chronic diastolic congestive heart failure (3) UTI (urinary tract infection): Qualified Code: N30.00 - Acute cystitis without hematuria Katerine Jacobsen MD R2 Feb 17, 2016 11:00 Analy Olmstead MD Feb 17, 2016 17:07 Mild crackles on exam, asymptomatic currently Repeat CXR 02/09 demonstrative of cardiomegaly with left basilar effusion and consolidation. Diffuse interstitial prominence suggestive of congestive failure BNP 489 (02/11) --> 504 (02/13) * Will give PRN Lasix IV * Continue home lasix 20mg daily * Continue to monitor * Will repeat echo per Cardiology (6) UTI (urinary tract infection) Status: Resolved Plan: Asymptomatic, UA showing leuk esterase, many WBC UCx (02/06): fernando-sensitive E coli * S/p rocephin, continue antibiotics as above * Recheck UA due to delirium Antibiotic History: Rocephin 1gm IV x3 doses (7) Postherpetic neuralgia Status: Chronic Plan: Stable * Resume home gabapentin due to delirium (could confuse altered mental status picture) (8) HTN (hypertension) Status: Chronic Plan: Impression: BP intermittently hypertensive * Continue home metoprolol 12.5mg BID * Continue Amlodipine 5mg daily (9) FEN/PPX Status: Acute Plan: Fluids: None at this time Elecs: Monitor and replete as needed Nutrition: Diet regular basic DVT: on therapeutic heparin for presumed NSTEMI Problem Qualifiers (1) Chronic obstructive pulmonary disease: Qualified Code: J44.9 - Chronic obstructive pulmonary disease, unspecified COPD type (2) Congestive heart failure: Qualified Code: I50.9 - Chronic congestive heart failure, unspecified congestive heart failure type (3) UTI (urinary tract infection): Qualified Code: N30.00 - Acute cystitis without hematuria (4) HTN (hypertension): Qualified Code: I10 - Essential hypertension Katerine Jacobsen MD R2 Feb 17, 2016 11:00
[2016-02-17 12:00] VITALS: BP 111/58; PULSE 68; RESP 20; TEMP 96.1; O2SAT 96
--- NOTE | 2016-02-17 12:00 | HHI.DS ---
Discharge Summary Admission Date Feb 08, 2016 at 15:29 Discharge Date: Feb 17, 2016 Admitting Diagnosis trimalleolar fracture (1) Nondisplaced trimalleolar fracture of left lower leg, initialencounter for closed fracture Diagnosis: Principal Plan: S/P ORIF due to mechanical fall. Orthopedics consulted: appreciate recommendations * Recommend PT and rehabilitation * NWB * Follow-up in 2 weeks * Clear for discharge to rehabilitation (2) NSTEMI (non-ST elevated myocardial infarction) Diagnosis: Principal Plan: Patient with ventricular arrhythmia on telemetry on02/12. Patient found to have NSTEMI on 02/12 Cardiology consulted: Appreciate recommendations * Family opted for medical management only * Echo with EF of 50-55% * No further nonsustained VT * Consider changing BB to Lopressor 12.5 mg TID if there is significant bradycardia (3) Chronic obstructive pulmonary disease Diagnosis: Secondary Plan: On 3L NC home oxygen. Imaging: * CXR 02/16: Cardiomegaly, left basilar density unchanged. * CXR 02/13: Mild interstitial edema with increasing consolidative changes left base * Chest CT 02/12 stable: Focal consolidation or atelectasis at the left lung base with small left effusion. The findings are similar to 2011 and may be chronic. Mild emphysema. No adenopathy. Mild to moderate kyphosis. Pulmonology consulted: Appreciate recommendations -Continue antibiotics for 5 days -Albuterol and Duonebs -O2 needed at rehabilitation -Taper prednisone to 10 mg daily (4) Delirium due to conditions classified elsewhere Diagnosis: Principal Plan: Delirium history during hospitalizations. Intermittently delirious for a few days but now resolved. Per discussion with patient's PCP, history of delirium during hospitalization which has been controlled with antipsychotics. -No Haldol needed since 02/14, currently when necessary (5) Congestive heart failure Diagnosis: Secondary Plan: CHF likely due to diastolic dysfunction as patient has adequate ejection fraction at 50-55%. BMP has been around 500 -Continue home Lasix 20 mg daily (6) UTI (urinary tract infection) Diagnosis: Principal Plan: Asymptomatic, UCx (02/06): fernando-sensitive E coli * S/p rocephin, continue antibiotics as above for COPD. * Repeat UA after onset of delirium was negative Antibiotic History: Rocephin 1gm IV x3 doses (7) FEN/PPX Diagnosis: Secondary Plan: Fluids: None at this time Elecs: Monitor and replete as needed Nutrition: Diet regular basic DVT: on therapeutic heparin for presumed NSTEMI GI prophylaxis: Protonix Chronic Conditions: * Posthepatic neuralgia: Continue gabapentin * Hypertension: Continue home metoprolol and amlodipine [facility] Orthopedic surgery, Cardiology, Pulmonology Procedures ORIF L ankle - 02/09/16 Echo with estimated ejection fraction in the range of 50-55%, normal systolic function Brief History 85-year-old female with history of MT not requiring stent, shingles with postherpetic neuralgia, COPD, hypertension presenting after a fall. At 10 PM last night, she was getting up to go to the bathroom and tripped over her oxygen tank wire. After falling down, she did hurt her left ankle and couldn't get up. She tried to use her emergency button, but it was nonfunctional. She sat upright next to her bed all night until the morning time when she was checked on found down. She thinks she may have hit her head on the closet door, but did not lose consciousness. She does not recall any lightheadedness or confusion prior to or after the episode. She felt pain in her left ankle, but she did not notice any weakness of one limb. She did not have any difficulty speaking or seeing. She is not having any numbness or tingling of the extremities. She denies chest pains or shortness of breath before or during the episode. She's not had any new headaches or visual disturbances. No recent changes to any of her medications. CBC/BMP: 02/17/16 0521 02/17/16 0521 Significant Findings Laboratory Tests Test 02/14/16 02/15/16 02/16/16 02/17/16 15:25 06:50 06:01 05:21 Urine Occult Blood TRACE (NEG) Urine Bacteria RARE /hpf (NONE) Urine Mucus FEW /lpf (OCC) White Blood Count 12.7 TH/MM3 (4.0-11.0) Red Blood Count 3.68 MIL/MM3 3.65 MIL/MM3 3.51 MIL/MM3 (4.00-5.30) (4.00-5.30) (4.00-5.30) Hemoglobin 10.6 GM/DL 10.4 GM/DL 9.9 GM/DL (11.6-15.3) (11.6-15.3) (11.6-15.3) Hematocrit 32.5 % 32.7 % 32.0 % (35.0-46.0) (35.0-46.0) (35.0-46.0) Neutrophils (%) (Auto) 72.2 % (16.0-70.0) Monocytes (%) (Auto) 10.9 % 10.4 % 9.8 % (0.0-8.0) (0.0-8.0) (0.0-8.0) Neutrophils # (Auto) 9.2 TH/MM3 (1.8-7.7) Monocytes # (Auto) 1.4 TH/MM3 1.0 TH/MM3 1.0 TH/MM3 (0-0.9) (0-0.9) (0-0.9) Potassium Level 3.4 MEQ/L (3.5-5.1) Carbon Dioxide Level 41.3 MEQ/L 41.8 MEQ/L 43.4 MEQ/L (21.0-32.0) (21.0-32.0) (21.0-32.0) Anion Gap 4 MEQ/L (5-15) 2 MEQ/L (5-15) 4 MEQ/L (5-15) Blood Urea Nitrogen 19 MG/DL (7-18) 22 MG/DL (7-18) 23 MG/DL (7-18) Estimat Glomerular Filtration 58 ML/MIN (>89) 65 ML/MIN (>89) 58 ML/MIN (>89) Rate Mean Corpuscular Hemoglobin 31.7 % 30.9 % Concent (32.0-36.0) (32.0-36.0) Sodium Level 146 MEQ/L (136-145) Chloride Level 97 MEQ/L (98-107) Imaging Chest CT with focal consolidation or atelectasis at the left lung base with small left effusion, may be chronic, mild emphysema, no adenopathy Ankle x-ray status post ORIF showing anatomic alignment, no acute complication PE at Discharge GEN: Well-developed, well-nourished patient. No acute distress. Nasal cannula in place. CV: Distant heart sounds but with regular rate and rhythm without obvious murmurs LUNGS: Moderate air movement bilaterally but without wheezes, rubs, crackles. No accessory muscle use. MSK: Left ankle wrapped with splint. Clean. No edema on right lower extremity or calf tenderness. NEURO/PSYCH: Awake, alert. Appropriate insight and judgment. Normal speech Hospital Course ORIF L ankle performed 02/09/16. Patient had prolonged delirium with psychotic features after surgery, work-up revealed elevated troponin without EKG changes, cardiology consulted and agreed with diagnosis of NSTEMI. Work-up also showing questionable pneumonia for which antibiotics were broadened. Patient improved clinically with regard to both mental status and respiratory status even prior to treating MT. Medical management of NSTEMI as patient and family do not wish to pursue cardiac catheterization at this time. Patient will be discharged for rehabilitation and will complete her 7 day course of Levaquin and continue dual antiplatelet therapy with aspirin and Plavix. Pt Condition on Discharge: Stable Discharge Disposition: Rehab Inpatient Discharge Instructions DIET: Follow Instructions for: Heart Healthy Diet Activities you can perform: Weight Bearing as Adam Follow up Referrals: Cardiology with Arley Olson DO Orthopedics - 02/23/16 [facility] with Agustin Willingham MD PCP Follow-up - 1 Week Pulmonology - 2 Weeks with Shelly James M.d. New Medications: Clopidogrel (Plavix) 75 Mg Tab 75 MG PO DAILY Blood Clot Prevention #30 Ref 0 TAB Hydrocodone-Acetaminophen (Clarence) 7.5-325 mg Tab 1 TAB PO Q4H PRN PAIN #60 Ref 0 TAB Walker/Adult/Folding (Walker/Adult/Folding) 1 Mis Mis 1 EA .ROUTE DIRECTED #1 Ref 0 EA Wheelchair Elevated Leg (Wheelchair Elevated Leg) 1 Mis Mis 1 EA .ROUTE DIRECTED #1 Ref 0 EA Amlodipine (Norvasc) 10 Mg Tab 10 MG PO DAILY #60 Ref 1 TAB Cholecalciferol (Vitamin D3) 5,000 Unit Cap 5000 UNITS PO DAILY #60 Ref 1 CAP Gabapentin (Neurontin) 400 Mg Cap 400 MG PO BID #60 Ref 1 CAP Levofloxacin (Levaquin) 750 Mg Tab 750 MG PO DAILY #4 Ref 0 TAB Metoprolol Tartrate (Metoprolol Tartrate) 25 Mg Tab 25 MG PO BID #60 Ref 1 TAB Pantoprazole (Pantoprazole) 40 Mg Tab 40 MG PO DAILY #5 TAB Prednisone (Prednisone) 20 Mg Tab 10 MG PO DAILY #5 TAB Continued Medications: Alprazolam (Alprazolam) 0.25 Mg Tab 0.25 MG PO Q6H PRN ANXIETY #30 Ref 0 TAB (This prescription has been renewed) Aspirin DR (Aspirin EC) 81 Mg Tabdr 81 MG PO DAILY Ref 0 TAB Atorvastatin (Atorvastatin) 20 Mg Tab 20 MG PO HS Cholesterol Management #30 Ref 0 TAB Budesonide-Formoterol Inh (Symbicort Inh) 160-4.5 Mcg/Act Aero 2 PUFF INH Q12HR #1 Ref [address] (Duloxetine DR) 60 Mg Capdr 60 MG PO DAILY #30 Ref 0 CAP Furosemide (Lasix) 20 Mg Tab 20 MG PO DAILY #30 Ref 0 TAB Ipratropium-Albuterol Neb (Duoneb) 0.5-2.5 Mg/3 Ml Neb 1 NEBULE INH QID NEB SHORTNESS OF BREATH #120 Ref 0 NEBULE Lactulose Liq (Lactulose Liq) 10 Gm/15 Ml Soln 30 ML PO Q6H PRN AGITATION Ref 0 ML Potassium Chloride Liq (Potassium Chloride Liq) 20 Meq/15 Ml Soln 20 MEQ PO DAILY Electrolyte Replacement Ref 0 ML Risperidone (Risperidone) 0.25 Mg Tab 0.25 MG PO HS #30 Ref 0 TAB ([oxygen @ 2 LPM by nc]) 2 LITER GANESH.CANULA DAILY Discontinued Medications: Cholecalciferol (Vitamin D3) 50,000 Unit Tab 99012 UNITS PO Q7D Nutritional Supplement #1 Ref 0 BOTTLE Gabapentin (Gabapentin) 400 Mg Cap 400 CAP PO TID #30 Ref 0 CAP Metoprolol Tartrate (Metoprolol Tartrate) 25 Mg Tab 12.5 MG PO BID #60 Ref 0 TAB Nitrofurantoin Monohydrate Macrocrystals (Macrobid) 100 Mg Cap 100 MG PO BIDPC Days 6 CAP Boyd Lopez MD R1 Feb 17, 2016 12:00
== END 2016-02-17 13:11 | DRG 492 ==
LOC: NEPC 06:56 → NEDA 10:44 → NEPGCP 13:50 → OBSVTOIN 02-08 15:29 → N06B 02-08 17:53 → N06A 02-13 14:39
PROVIDERS: ADMIT Family Medicine; ATTEND Family Medicine
PROC: 0QSK04Z Reposition Left Fibula with Internal Fixation Device, Open Approach (ICD-10-PCS; 2016-02-09)
PROC: 0QSH04Z Reposition Left Tibia with Internal Fixation Device, Open Approach (ICD-10-PCS; principal; 2016-02-09 10:06)
DX: S82.842A Displaced bimalleolar fracture of left lower leg, initial encounter for closed fracture (principal); I21.4 Non-ST elevation (NSTEMI) myocardial infarction; E87.0 Hyperosmolality and hypernatremia; I47.2 Ventricular tachycardia; I42.9 Cardiomyopathy, unspecified; F03.90 Unspecified dementia, unspecified severity, without behavioral disturbance, psychotic disturbance, mood disturbance, and anxiety; F05 Delirium due to known physiological condition; I50.32 Chronic diastolic (congestive) heart failure; E83.51 Hypocalcemia; B02.29 Other postherpetic nervous system involvement; N39.0 Urinary tract infection, site not specified; I45.2 Bifascicular block; E86.0 Dehydration; I25.10 Atherosclerotic heart disease of native coronary artery without angina pectoris; I25.2 Old myocardial infarction; J44.9 Chronic obstructive pulmonary disease, unspecified; I10 Essential (primary) hypertension; W01.0XXA Fall on same level from slipping, tripping and stumbling without subsequent striking against object, initial encounter; Y93.01 Activity, walking, marching and hiking; Y92.092 Bedroom in other non-institutional residence as the place of occurrence of the external cause; M81.0 Age-related osteoporosis without current pathological fracture; M19.90 Unspecified osteoarthritis, unspecified site; E78.00 Pure hypercholesterolemia, unspecified; H91.90 Unspecified hearing loss, unspecified ear; E87.6 Hypokalemia; J45.909 Unspecified asthma, uncomplicated; E78.5 Hyperlipidemia, unspecified; R09.02 Hypoxemia; B96.20 Unspecified Escherichia coli [E. coli] as the cause of diseases classified elsewhere; R44.1 Visual hallucinations; Z86.19 Personal history of other infectious and parasitic diseases; L82.1 Other seborrheic keratosis; M40.209 Unspecified kyphosis, site unspecified; Z66 Do not resuscitate; Z87.891 Personal history of nicotine dependence; Z99.81 Dependence on supplemental oxygen
CPT/HCPCS: 36600; 70450; 71010; 71260; 73600; 73610; 76000; 76937; 80048; 80053; 80061; 80202; 81001; 82140; 82306; 82550; 82552; 82805; 83735; 83880; 84100; 84155; 84443; 84484; 85025; 87040; 87077; 87086; 87186; 93005; 93306; 94150; 94640; 94664; 94667; 94668; 96365; C1713; G0378; G8987-GP; G8988-GP; J0131; J0696; J1170; J1580; J1630; J1650; J1940; J2370; J2405; J2543; J2710; J3010; J3370; J3475; J3480; J7030; J7040; J7050; J7512; J7613; J7644; P9612; Q9967